=== PATIENT | male | born 1970 | race Caucasian/White ===

== ENCOUNTER 2017-11-25 07:52 | Inpatient (IN) | payer MEDICAID ==
[~2017-11-25] VITALS: Ht 170.2 cm; Wt 66.0 kg
[2017-11-25 09:29] LABS: BASOPHILS # (AUTO) 0.06 x10^3/uL (0-0.1); BASOPHILS % (AUTO) 1 % (0-1); EOSINOPHILS % (AUTO) 3 % (1-7); LYMPHOCYTES # (AUTO) 1.86 x10^3/uL (1-3.4); LYMPHOCYTES % (AUTO) 18 % (22-44); MD NO; MEAN CORPUSCULAR HEMOGLOBIN 31.4 pg (27.5-34.5); MEAN CORPUSCULAR HGB CONC 32.4 g/dL (33.2-36.2); MEAN CORPUSCULAR VOLUME 96.8 fL (81-97); MEAN PLATELET VOLUME 7.1 fL (7.4-10.4); MONOCYTES # (AUTO) 0.78 x10^3/uL (0.2-0.8); MONOCYTES % (AUTO) 7 % (2-9); NEUTROPHILS # (AUTO) 7.63 x10^3/uL (1.8-6.8); NEUTROPHILS % (AUTO) 72 % (42-75); PLATELET COUNT 289 x10^3/uL (130-400); RED BLOOD COUNT 3.63 x10^6/uL (4.38-5.82); RED CELL DISTRIBUTION WIDTH 17.3 % (9.4-14.8)
[2017-11-25] MEDS ORDERED: MORPHINE SULFATE 4 MG/ML, 1ML ONE (09:29)
[2017-11-25] MEDS ORDERED: MORPHINE SULFATE 4 MG/ML, 1ML IVPush PRN ×2 (09:30→15:00)
[2017-11-25] MEDS ORDERED: FAMOTIDINE 20 MG/2 ML IVP ONE (09:30)
[2017-11-25] MEDS ORDERED: SODIUM CHLORIDE FLUSH 10ML SYR IVF ONE (09:30)
[2017-11-25] MEDS ORDERED: FAMOTIDINE 20 MG/2 ML ONE (09:30)
[2017-11-25] MEDS ORDERED: ONDANSETRON 2MG/ML, 2ML IVPush ONE (09:30)
[2017-11-25] MEDS ORDERED: ONDANSETRON 2MG/ML, 2ML ONE (09:32)
[2017-11-25 09:39] LABS: ALANINE AMINOTRANSFERASE 72 U/L (12-78); ALBUMIN 3.9 g/dL (3.4-5.0); ANION GAP 7 mmol/L (5-15); CALCIUM 9.4 mg/dL (8.5-10.1); CHLORIDE 98 mmol/L (98-107); CREATININE 8.57 mg/dL (0.7-1.3)
[2017-11-25 09:40] LABS: BILIRUBIN, DIRECT < 0.1 mg/dL (0.1-0.2)
[2017-11-25 09:42] LABS: ALKALINE PHOSPHATASE 131 U/L (45-117); BILIRUBIN,INDIRECT 0.4 mg/dL (0.0-2.0); BILIRUBIN,TOTAL 0.5 mg/dL (0.2-1.0); TOTAL PROTEIN 9.9 g/dL (6.4-8.2)
[2017-11-25] MEDS ORDERED: hydrOXYzine 25 MG/ML IM ONE (13:00)
[2017-11-25] MEDS ORDERED: CEFOTETAN PMX 1GM/50ML 50 ML IV ONE (13:00)
[2017-11-25] MEDS ORDERED: CEFOTETAN PMX 1GM/50ML 50 ML ONE (13:07)
[2017-11-25] MEDS ORDERED: ASPI500T4 PO (13:24)
[2017-11-25] MEDS ORDERED: ALLO100T30 PO (13:25)
[2017-11-25] MEDS ORDERED: SUCR500T PO (13:26)
[2017-11-25] MEDS ORDERED: LISI-167 PO (13:27)
[2017-11-25] MEDS ORDERED: ATOR20TA PO (13:33)
[2017-11-25] MEDS ORDERED: LISI-170 PO (13:33)
[2017-11-25] MEDS ORDERED: COLC0.6T37 PO (13:34)
[2017-11-25] MEDS ORDERED: PHARMACY MAY ADJ FOR RENAL FX MC PRN (15:00)
[2017-11-25] MEDS ORDERED: HYDROcodone/APAP 5/325 TABLET PO PRN (15:00)
[2017-11-25] MEDS ORDERED: POLYETHYLENE GLYCOL 17 GM PACKET PO PRN (15:00)
[2017-11-25] MEDS ORDERED: ONDANSETRON ODT 4 MG PO PRN (15:00)
[2017-11-25] MEDS ORDERED: ONDANSETRON 2MG/ML, 2ML IVPush PRN (15:00)
[2017-11-25] MEDS ORDERED: DOCUSATE 100 MG CAPSULE PO PRN (15:00)
[2017-11-25] MEDS ORDERED: ACETAMINOPHEN 325 MG TABLET PO PRN (15:00)
[2017-11-25] MEDS ORDERED: AMPICILLIN/SULBACTAM 1,500 MG in SODIUM CHLORIDE 0.9% 50 ML IV SCH (15:00)
[2017-11-25] MEDS: AMPICILLIN/SULBACTAM 3 GM in SODIUM CHLORIDE 0.9% 100 ML IV SCH (16:13)
[2017-11-25] MEDS: SODIUM CHLORIDE 0.9% 1,000 ML IV SCH (16:13)
[2017-11-25 20:00] VITALS: BP 129/81
[2017-11-25] MEDS: ATORVASTATIN 20 MG TABLET PO SCH (21:29)
[2017-11-26 02:01] VITALS: BP 114/75
[2017-11-26 05:28] LABS: BASOPHILS # (AUTO) 0.07 x10^3/uL (0-0.1); BASOPHILS % (AUTO) 1 % (0-1); EOSINOPHILS # (AUTO) 0.33 x10^3/uL (0-0.4); EOSINOPHILS % (AUTO) 4 % (1-7); LYMPHOCYTES # (AUTO) 1.64 x10^3/uL (1-3.4); LYMPHOCYTES % (AUTO) 18 % (22-44); MD NO; MEAN CORPUSCULAR HEMOGLOBIN 32.3 pg (27.5-34.5); MEAN CORPUSCULAR VOLUME 97.8 fL (81-97); MEAN PLATELET VOLUME 7.1 fL (7.4-10.4); MONOCYTES # (AUTO) 0.68 x10^3/uL (0.2-0.8); MONOCYTES % (AUTO) 7 % (2-9); NEUTROPHILS # (AUTO) 6.61 x10^3/uL (1.8-6.8); NEUTROPHILS % (AUTO) 71 % (42-75); PLATELET COUNT 276 x10^3/uL (130-400); RED BLOOD COUNT 2.88 x10^6/uL (4.38-5.82); RED CELL DISTRIBUTION WIDTH 16.6 % (9.4-14.8)
[2017-11-26] MEDS: SODIUM CHLORIDE 0.9% 1,000 ML IV SCH (05:31)
[2017-11-26 05:32] LABS: CHLORIDE 104 mmol/L (98-107)
[2017-11-26 05:44] LABS: ALANINE AMINOTRANSFERASE 45 U/L (12-78); ALBUMIN 3.1 g/dL (3.4-5.0); ALKALINE PHOSPHATASE 89 U/L (45-117); ANION GAP 6 mmol/L (5-15); BILIRUBIN,TOTAL 0.6 mg/dL (0.2-1.0); CALCIUM 8.3 mg/dL (8.5-10.1); CREATININE 5.49 mg/dL (0.7-1.3); TOTAL PROTEIN 8.1 g/dL (6.4-8.2)
[2017-11-26 07:26] VITALS: BP 106/69
[2017-11-26] MEDS ORDERED: LISINOPRIL 20 MG TABLET PO SCH (09:00)
[2017-11-26] MEDS ORDERED: COLCHICINE 0.6 MG TABLET PO SCH (09:00)
[2017-11-26] MEDS ORDERED: DARBEPOETIN 60 MCG/ML SQ SCH (10:00)
[2017-11-26] MEDS: SEVELAMER CARBONATE 800MG TAB PO SCH ×2 (12:00→17:41)
[2017-11-26 12:19] LABS: CALCIUM 8.9 mg/dL (8.5-10.1)
[2017-11-26 13:31] VITALS: BP 126/80
[2017-11-26] MEDS ORDERED: SINCALIDE (KINEVAC) 5 MCG ONE (13:36)
[2017-11-26] MEDS: ALLOPURINOL 100 MG TABLET PO SCH (17:41)
[2017-11-26] MEDS: AMPICILLIN/SULBACTAM 3 GM in SODIUM CHLORIDE 0.9% 100 ML IV SCH (17:41)
[2017-11-26] MEDS: ATORVASTATIN 20 MG TABLET PO SCH (20:30)
[2017-11-26 22:30] VITALS: BP 127/80
[2017-11-27 03:41] VITALS: BP 133/86
[2017-11-27 05:08] LABS: BASOPHILS # (AUTO) 0.03 x10^3/uL (0-0.1); BASOPHILS % (AUTO) 0 % (0-1); EOSINOPHILS # (AUTO) 0.35 x10^3/uL (0-0.4); EOSINOPHILS % (AUTO) 4 % (1-7); LYMPHOCYTES # (AUTO) 1.88 x10^3/uL (1-3.4); LYMPHOCYTES % (AUTO) 23 % (22-44); MD NO; MEAN CORPUSCULAR HEMOGLOBIN 31.8 pg (27.5-34.5); MEAN CORPUSCULAR HGB CONC 32.5 g/dL (33.2-36.2); MEAN CORPUSCULAR VOLUME 97.6 fL (81-97); MEAN PLATELET VOLUME 7.4 fL (7.4-10.4); MONOCYTES # (AUTO) 0.73 x10^3/uL (0.2-0.8); MONOCYTES % (AUTO) 9 % (2-9); NEUTROPHILS # (AUTO) 5.14 x10^3/uL (1.8-6.8); NEUTROPHILS % (AUTO) 63 % (42-75); PLATELET COUNT 271 x10^3/uL (130-400); RED CELL DISTRIBUTION WIDTH 16.6 % (9.4-14.8)
[2017-11-27 05:23] LABS: CHLORIDE 108 mmol/L (98-107)
[2017-11-27 05:33] LABS: ANION GAP 7 mmol/L (5-15); CALCIUM 8.6 mg/dL (8.5-10.1)
[2017-11-27] MEDS: SEVELAMER CARBONATE 800MG TAB PO SCH ×2 (08:00→13:56)
[2017-11-27 08:02] VITALS: BP 130/80
[2017-11-27] MEDS ORDERED: LISINOPRIL 10 MG TABLET PO SCH (09:00)
[2017-11-27] MEDS: ALLOPURINOL 100 MG TABLET PO SCH (13:56)
[2017-11-27 14:30] VITALS: BP 115/76
[2017-11-27] MEDS ORDERED: SEVE800T8 PO (15:35)
== END 2017-11-27 16:31 | disposition home or self-care (01) | DRG 444 ==
LOC: ED 10:16 → EDIP 13:03 → 4WST 14:11
PROVIDERS: ADMIT Family Medicine; ATTEND Family Medicine
PROC: 5A1D70Z Performance of Urinary Filtration, Intermittent, Less than 6 Hours Per Day (ICD-10-PCS; principal; 2017-11-25)
PROC: 5A1D70Z Performance of Urinary Filtration, Intermittent, Less than 6 Hours Per Day (ICD-10-PCS; 2017-11-27)
DX: K82.8 Other specified diseases of gallbladder (principal); E43 Unspecified severe protein-calorie malnutrition; E11.22 Type 2 diabetes mellitus with diabetic chronic kidney disease; N18.6 End stage renal disease; I13.11 Hypertensive heart and chronic kidney disease without heart failure, with stage 5 chronic kidney disease, or end stage renal disease; K80.00 Calculus of gallbladder with acute cholecystitis without obstruction; D63.1 Anemia in chronic kidney disease; E78.5 Hyperlipidemia, unspecified; E87.5 Hyperkalemia; L29.9 Pruritus, unspecified; M10.9 Gout, unspecified; M41.9 Scoliosis, unspecified; N25.0 Renal osteodystrophy; Z85.6 Personal history of leukemia; Z68.22 Body mass index [BMI] 22.0-22.9, adult; Z87.891 Personal history of nicotine dependence; Z99.2 Dependence on renal dialysis
CPT/HCPCS: 36415; 72072; 76700; 78227; 80048; 80053; 82247; 82248; 82306; 82310; 82728; 83540; 83550; 83690; 83970; 84100; 84132; 85025; 86704; 86706; 87340; 96365; 96372; 96375; J0295; J0881; J2405; A9537; C9898; J2805; J3410; J7030; S0028; S0074

== ENCOUNTER 2017-12-01 21:17 | Inpatient (IN) | payer MEDICAID ==
[~2017-12-01] VITALS: Ht 170.2 cm; Wt 57.9 kg
[~2017-12-01 21:17] MED LIST: ALLO100T30 PO; ASPI500T4 PO; ATOR20TA PO; COLC0.6T37 PO; LISI-167 PO; LISI-170 PO; SEVE800T8 PO; SUCR500T PO
[2017-12-01 22:00] LABS: BASOPHILS # (AUTO) 0.06 x10^3/uL (0-0.1); BASOPHILS % (AUTO) 1 % (0-1); EOSINOPHILS # (AUTO) 0.27 x10^3/uL (0-0.4); EOSINOPHILS % (AUTO) 2 % (1-7); LYMPHOCYTES # (AUTO) 1.64 x10^3/uL (1-3.4); LYMPHOCYTES % (AUTO) 13 % (22-44); MD SCAN; MEAN CORPUSCULAR HEMOGLOBIN 31.1 pg (27.5-34.5); MEAN CORPUSCULAR HGB CONC 32.4 g/dL (33.2-36.2); MEAN CORPUSCULAR VOLUME 95.9 fL (81-97); MEAN PLATELET VOLUME 6.9 fL (7.4-10.4); MONOCYTES # (AUTO) 0.81 x10^3/uL (0.2-0.8); MONOCYTES % (AUTO) 6 % (2-9); NEUTROPHILS # (AUTO) 10.12 x10^3/uL (1.8-6.8); NEUTROPHILS % (AUTO) 78 % (42-75); PLATELET COUNT 336 x10^3/uL (130-400); RED BLOOD COUNT 3.45 x10^6/uL (4.38-5.82); RED CELL DISTRIBUTION WIDTH 16.4 % (9.4-14.8)
[2017-12-01] MEDS ORDERED: SODIUM CHLORIDE FLUSH 10ML SYR IVF ONE (22:00)
[2017-12-01 22:09] LABS: PROTHROMBIN TIME 10.3 Seconds (9.6-11.5)
[2017-12-01 22:12] LABS: ALANINE AMINOTRANSFERASE 69 U/L (12-78); ALBUMIN 3.7 g/dL (3.4-5.0); ANION GAP 12 mmol/L (5-15); CALCIUM 9.1 mg/dL (8.5-10.1); CHLORIDE 106 mmol/L (98-107)
[2017-12-01 22:14] LABS: ALKALINE PHOSPHATASE 160 U/L (45-117); BILIRUBIN,TOTAL 0.9 mg/dL (0.2-1.0); TOTAL PROTEIN 9.5 g/dL (6.4-8.2)
[2017-12-01] MEDS ORDERED: LEVOFLOXACIN/PMX 750MG/150ML 150 ML IV ONE (23:00)
[2017-12-01] MEDS ORDERED: LEVOFLOXACIN/PMX 750MG/150ML 150 ML IV SCH (23:30)
[2017-12-01] MEDS ORDERED: LEVOFLOXACIN/PMX 750MG/150ML 150 ML ONE (23:51)
[2017-12-02] MEDS ORDERED: ONDANSETRON ODT 4 MG PO PRN
[2017-12-02] MEDS ORDERED: GUAIFENESIN/DM 200-20MG, 10ML UDC PO PRN
[2017-12-02] MEDS ORDERED: ACETAMINOPHEN 325 MG TABLET PO PRN
[2017-12-02] MEDS ORDERED: POLYETHYLENE GLYCOL 17 GM PACKET PO PRN
[2017-12-02] MEDS ORDERED: hydrALAzine 20 MG/ML, 1ML IVPush PRN
[2017-12-02] MEDS ORDERED: BISACODYL 10 MG SUPP PR PRN
[2017-12-02 00:09] LABS: HEMOGLOBIN A1C 4.2 % (4.2-6.3)
[2017-12-02 00:32] LABS: MICROSCOPIC INDICATED
[2017-12-02 00:44] LABS: CULTURE INDICATED? NO
[2017-12-02] MEDS: SEVELAMER CARBONATE 800MG TAB PO SCH ×4 (01:05→17:00)
[2017-12-02] MEDS: ATORVASTATIN 20 MG TABLET PO SCH ×2 (01:06→20:15)
[2017-12-02] MEDS ORDERED: HEPARIN 5,000 UNITS/ML, 1ML ONE ×2 (01:10→09:48)
[2017-12-02] MEDS: HEPARIN 5,000 UNITS/ML, 1ML SQ SCH ×3 (01:15→20:15)
[2017-12-02 06:12] LABS: BASOPHILS # (AUTO) 0.05 x10^3/uL (0-0.1); BASOPHILS % (AUTO) 0 % (0-1); EOSINOPHILS # (AUTO) 0.27 x10^3/uL (0-0.4); EOSINOPHILS % (AUTO) 2 % (1-7); LYMPHOCYTES # (AUTO) 1.52 x10^3/uL (1-3.4); LYMPHOCYTES % (AUTO) 13 % (22-44); MD NO; MEAN CORPUSCULAR HGB CONC 33.5 g/dL (33.2-36.2); MEAN CORPUSCULAR VOLUME 95.5 fL (81-97); MEAN PLATELET VOLUME 6.9 fL (7.4-10.4); MONOCYTES # (AUTO) 0.71 x10^3/uL (0.2-0.8); MONOCYTES % (AUTO) 6 % (2-9); NEUTROPHILS # (AUTO) 9.22 x10^3/uL (1.8-6.8); NEUTROPHILS % (AUTO) 78 % (42-75); PLATELET COUNT 284 x10^3/uL (130-400); RED BLOOD COUNT 2.96 x10^6/uL (4.38-5.82); RED CELL DISTRIBUTION WIDTH 16.5 % (9.4-14.8)
[2017-12-02 06:23] LABS: ALBUMIN 3.1 g/dL (3.4-5.0); ANION GAP 13 mmol/L (5-15); CALCIUM 8.5 mg/dL (8.5-10.1); CHLORIDE 104 mmol/L (98-107)
[2017-12-02 06:29] LABS: ALANINE AMINOTRANSFERASE 59 U/L (12-78); ALKALINE PHOSPHATASE 138 U/L (45-117); TOTAL PROTEIN 8.3 g/dL (6.4-8.2)
[2017-12-02] MEDS ORDERED: ARANESP 100 MCG/ML **ESRD SQ SCH (08:30)
[2017-12-02] MEDS ORDERED: ONDANSETRON ODT 4 MG ONE (09:09)
[2017-12-02] MEDS: ALLOPURINOL 100 MG TABLET PO SCH (09:57)
[2017-12-02] MEDS: LISINOPRIL 20 MG TABLET PO SCH (09:59)
[2017-12-02] MEDS: SENNA/DOCUSATE TABLET PO SCH (10:02)
[2017-12-02 20:00] VITALS: BP 148/90
[2017-12-03 02:00] VITALS: BP 110/70
[2017-12-03] MEDS: HEPARIN 5,000 UNITS/ML, 1ML SQ SCH ×3 (04:16→21:47)
[2017-12-03 05:32] LABS: BASOPHILS # (AUTO) 0.07 x10^3/uL (0-0.1); BASOPHILS % (AUTO) 1 % (0-1); EOSINOPHILS # (AUTO) 0.22 x10^3/uL (0-0.4); EOSINOPHILS % (AUTO) 3 % (1-7); LYMPHOCYTES # (AUTO) 1.86 x10^3/uL (1-3.4); LYMPHOCYTES % (AUTO) 23 % (22-44); MD NO; MEAN CORPUSCULAR HGB CONC 32.8 g/dL (33.2-36.2); MEAN CORPUSCULAR VOLUME 94.5 fL (81-97); MEAN PLATELET VOLUME 7.1 fL (7.4-10.4); MONOCYTES # (AUTO) 0.81 x10^3/uL (0.2-0.8); MONOCYTES % (AUTO) 10 % (2-9); NEUTROPHILS # (AUTO) 5.02 x10^3/uL (1.8-6.8); NEUTROPHILS % (AUTO) 63 % (42-75); PLATELET COUNT 367 x10^3/uL (130-400); RED BLOOD COUNT 3.36 x10^6/uL (4.38-5.82); RED CELL DISTRIBUTION WIDTH 15.6 % (9.4-14.8)
[2017-12-03 05:38] LABS: ANION GAP 9 mmol/L (5-15); CALCIUM 8.8 mg/dL (8.5-10.1); CHLORIDE 100 mmol/L (98-107); CREATININE 8.98 mg/dL (0.7-1.3)
[2017-12-03 07:44] VITALS: BP 114/74
[2017-12-03] MEDS: LISINOPRIL 20 MG TABLET PO SCH (10:59)
[2017-12-03] MEDS: SENNA/DOCUSATE TABLET PO SCH (10:59)
[2017-12-03] MEDS: SEVELAMER CARBONATE 800MG TAB PO SCH ×3 (10:59→17:39)
[2017-12-03] MEDS: ALLOPURINOL 100 MG TABLET PO SCH (11:00)
[2017-12-03 13:59] VITALS: BP 118/79
[2017-12-03 18:59] VITALS: BP 105/72
[2017-12-03] MEDS: ATORVASTATIN 20 MG TABLET PO SCH (21:47)
[2017-12-04] MEDS ORDERED: LEVOFLOXACIN/PMX 500MG/100ML 100 ML IV SCH
[2017-12-04 00:17] VITALS: BP 114/72
[2017-12-04] MEDS: HEPARIN 5,000 UNITS/ML, 1ML SQ SCH ×2 (06:01→17:06)
[2017-12-04] MEDS: ALLOPURINOL 100 MG TABLET PO SCH (08:02)
[2017-12-04] MEDS: LISINOPRIL 20 MG TABLET PO SCH (08:02)
[2017-12-04] MEDS: SEVELAMER CARBONATE 800MG TAB PO SCH ×2 (08:02→12:24)
[2017-12-04] MEDS: SENNA/DOCUSATE TABLET PO SCH (08:03)
[2017-12-04 08:04] VITALS: BP 126/82
[2017-12-04 12:48] VITALS: BP 131/82
[2017-12-04] MEDS ORDERED: ACET325T14 PO (14:28)
[2017-12-04] MEDS ORDERED: LEVO500T47 PO (14:28)
[2017-12-04] MEDS ORDERED: GUAI200T3 PO (14:28)
== END 2017-12-04 17:28 | disposition home or self-care (01) | DRG 871 ==
LOC: ED 21:39 → EDIP 23:30 → 4WST 12-02 14:29
PROVIDERS: ADMIT Hospitalist; ATTEND Hospitalist
PROC: 5A1D70Z Performance of Urinary Filtration, Intermittent, Less than 6 Hours Per Day (ICD-10-PCS; principal; 2017-12-02)
PROC: 5A1D70Z Performance of Urinary Filtration, Intermittent, Less than 6 Hours Per Day (ICD-10-PCS; 2017-12-04)
DX: A41.9 Sepsis, unspecified organism (principal); E43 Unspecified severe protein-calorie malnutrition; I13.2 Hypertensive heart and chronic kidney disease with heart failure and with stage 5 chronic kidney disease, or end stage renal disease; E11.21 Type 2 diabetes mellitus with diabetic nephropathy; J18.9 Pneumonia, unspecified organism; I50.9 Heart failure, unspecified; N18.6 End stage renal disease; D63.1 Anemia in chronic kidney disease; E11.22 Type 2 diabetes mellitus with diabetic chronic kidney disease; E78.5 Hyperlipidemia, unspecified; E87.5 Hyperkalemia; F17.210 Nicotine dependence, cigarettes, uncomplicated; G89.29 Other chronic pain; R62.7 Adult failure to thrive; N25.0 Renal osteodystrophy; M10.9 Gout, unspecified; M41.9 Scoliosis, unspecified; Z99.2 Dependence on renal dialysis; Z91.19 Patient's noncompliance with other medical treatment and regimen; Z90.49 Acquired absence of other specified parts of digestive tract; Z68.20 Body mass index [BMI] 20.0-20.9, adult
CPT/HCPCS: 36415; 71046; 80048; 80053; 81001; 82962; 83036; 83605; 83690; 84145; 85025; 85610; 85730; 87040; 87070; 87205; 93005; 99285; J0882; J1644; J1956; Q0162

== ENCOUNTER 2018-01-04 08:12 | Emergency (ER) | payer MEDICAID ==
[~2018-01-04] VITALS: Ht 170.2 cm; Wt 57.0 kg
[~2018-01-04 08:12] MED LIST changes: +ACET325T14 PO; +ACET500T71 PO; +AMLO10TA2 PO; +ASPRIN PO; +FERR325T16 PO; +GUAI200T3 PO; +LEVO500T47 PO
[2018-01-04] MEDS ORDERED: MORPHINE SULFATE 4 MG/ML, 1ML IVPush PRN (09:30)
[2018-01-04] MEDS ORDERED: ONDANSETRON ODT 4 MG PO ONE (09:30)
[2018-01-04] MEDS ORDERED: SODIUM CHLORIDE FLUSH 10ML SYR IVF ONE (09:30)
[2018-01-04 09:46] LABS: BASOPHILS # (AUTO) 0.03 x10^3/uL (0-0.1); BASOPHILS % (AUTO) 0 % (0-1); EOSINOPHILS # (AUTO) 0.17 x10^3/uL (0-0.4); EOSINOPHILS % (AUTO) 2 % (1-7); LYMPHOCYTES # (AUTO) 1.28 x10^3/uL (1-3.4); LYMPHOCYTES % (AUTO) 12 % (22-44); MD NO; MEAN CORPUSCULAR HEMOGLOBIN 30.7 pg (27.5-34.5); MEAN CORPUSCULAR HGB CONC 32.8 g/dL (33.2-36.2); MEAN CORPUSCULAR VOLUME 93.4 fL (81-97); MEAN PLATELET VOLUME 7.6 fL (7.4-10.4); MONOCYTES # (AUTO) 0.57 x10^3/uL (0.2-0.8); MONOCYTES % (AUTO) 5 % (2-9); NEUTROPHILS # (AUTO) 9.03 x10^3/uL (1.8-6.8); NEUTROPHILS % (AUTO) 82 % (42-75); PLATELET COUNT 260 x10^3/uL (130-400); RED BLOOD COUNT 4.21 x10^6/uL (4.38-5.82); RED CELL DISTRIBUTION WIDTH 15.3 % (9.4-14.8)
[2018-01-04 09:55] LABS: ALANINE AMINOTRANSFERASE 35 U/L (12-78); ALBUMIN 3.9 g/dL (3.4-5.0); ANION GAP 11 mmol/L (5-15); CALCIUM 10.2 mg/dL (8.5-10.1); CHLORIDE 101 mmol/L (98-107)
[2018-01-04 09:58] LABS: ALKALINE PHOSPHATASE 97 U/L (45-117); BILIRUBIN,TOTAL 0.5 mg/dL (0.2-1.0); TOTAL PROTEIN 9.7 g/dL (6.4-8.2)
[2018-01-04] MEDS ORDERED: ONDANSETRON ODT 4 MG ONE (10:00)
[2018-01-04] MEDS ORDERED: morphine SULFATE 10 MG/ML, 1ML ONE (10:01)
[2018-01-04 11:00] VITALS: BP 136/91
== END 2018-01-04 11:09 | disposition home or self-care (01) ==
LOC: ED 09:01
DX: N18.6 End stage renal disease (principal); G44.219 Episodic tension-type headache, not intractable; E11.22 Type 2 diabetes mellitus with diabetic chronic kidney disease; I12.0 Hypertensive chronic kidney disease with stage 5 chronic kidney disease or end stage renal disease; N17.9 Acute kidney failure, unspecified; Z99.2 Dependence on renal dialysis; Z87.891 Personal history of nicotine dependence
CPT/HCPCS: 36415; 70450; 71046; 80053; 84550; 85025; 93005; 96374; 99285; Q0162

== ENCOUNTER 2018-01-18 21:43 | Emergency (ER) | payer MEDICAID ==
[~2018-01-18] VITALS: Ht 170.2 cm; Wt 56.3 kg
[2018-01-18 23:55] LABS: ALANINE AMINOTRANSFERASE 31 U/L (12-78); ALBUMIN 3.7 g/dL (3.4-5.0); ANION GAP 5 mmol/L (5-15); CALCIUM 9.9 mg/dL (8.5-10.1); CHLORIDE 98 mmol/L (98-107)
[2018-01-18 23:57] LABS: ALKALINE PHOSPHATASE 123 U/L (45-117); BILIRUBIN,TOTAL 0.6 mg/dL (0.2-1.0); TOTAL PROTEIN 9.7 g/dL (6.4-8.2)
[2018-01-19 00:01] VITALS: BP 142/85
== END 2018-01-19 00:41 | disposition home or self-care (01) ==
LOC: ED 23:59
DX: L29.9 Pruritus, unspecified (principal); M10.9 Gout, unspecified; I10 Essential (primary) hypertension; E11.9 Type 2 diabetes mellitus without complications
CPT/HCPCS: 36415; 80053; 99283; Q0177

== ENCOUNTER 2018-01-29 18:31 | Inpatient (IN) | payer MEDICAID ==
[~2018-01-29] VITALS: Ht 170.2 cm; Wt 56.9 kg
[2018-01-29] MEDS ORDERED: LORazepam 1MG TABLET PO ONE (20:30)
[2018-01-29 20:33] LABS: BASOPHILS # (AUTO) 0.04 x10^3/uL (0-0.1); BASOPHILS % (AUTO) 0 % (0-1); EOSINOPHILS # (AUTO) 0.17 x10^3/uL (0-0.4); EOSINOPHILS % (AUTO) 1 % (1-7); LYMPHOCYTES # (AUTO) 1.66 x10^3/uL (1-3.4); LYMPHOCYTES % (AUTO) 11 % (22-44); MD NO; MEAN CORPUSCULAR HEMOGLOBIN 30.5 pg (27.5-34.5); MEAN CORPUSCULAR HGB CONC 33.4 g/dL (33.2-36.2); MEAN CORPUSCULAR VOLUME 91.3 fL (81-97); MEAN PLATELET VOLUME 7.4 fL (7.4-10.4); MONOCYTES % (AUTO) 6 % (2-9); NEUTROPHILS # (AUTO) 11.74 x10^3/uL (1.8-6.8); NEUTROPHILS % (AUTO) 81 % (42-75); PLATELET COUNT 276 x10^3/uL (130-400); RED BLOOD COUNT 3.73 x10^6/uL (4.38-5.82); RED CELL DISTRIBUTION WIDTH 14.9 % (9.4-14.8)
[2018-01-29 20:39] LABS: ANION GAP 10 mmol/L (5-15); CALCIUM 9.9 mg/dL (8.5-10.1); CHLORIDE 96 mmol/L (98-107)
[2018-01-29] MEDS ORDERED: SODIUM CHLORIDE FLUSH 10ML SYR IVF ONE (21:00)
[2018-01-29] MEDS ORDERED: CEFTRIAXONE PMX 1GM/50ML 50 ML IVPB ONE (21:00)
[2018-01-29] MEDS ORDERED: CEFTRIAXONE PMX 1GM/50ML 50 ML ONE (21:01)
[2018-01-29] MEDS ORDERED: LORazepam 1MG TABLET ONE (21:01)
[2018-01-29] MEDS ORDERED: PHARMACOKINETIC CONSULTATION MC ONE (22:00)
[2018-01-29] MEDS ORDERED: VANCOMYCIN PER PHARMACY IV ONE (22:00)
[2018-01-29] MEDS ORDERED: VANCOMYCIN PMX 1GM/200ML 200 ML IV ONE (22:00)
[2018-01-29] MEDS ORDERED: ENALAPRILAT 1.25 MG/ML, 2ML IV ONE (22:00)
[2018-01-29] MEDS ORDERED: SODIUM CHLORIDE 0.9% 1,000 ML IV SCH (22:32)
[2018-01-29] MEDS ORDERED: hydrOXYzine 50 MG/ML IM ONE (23:00)
[2018-01-29] MEDS ORDERED: hydrALAzine 20 MG/ML, 1ML IVPush PRN (23:00)
[2018-01-29] MEDS ORDERED: ONDANSETRON 2MG/ML, 2ML IVPush PRN (23:00)
[2018-01-29] MEDS ORDERED: POLYETHYLENE GLYCOL 17 GM PACKET PO PRN (23:00)
[2018-01-29 23:02] LABS: MICROSCOPIC AUTO
[2018-01-29 23:07] LABS: CULTURE INDICATED? NO
[2018-01-29 23:23] VITALS: BP 144/89
[2018-01-29] MEDS: HEPARIN 5,000 UNITS/ML, 1ML SQ SCH (23:45)
[2018-01-29] MEDS ORDERED: hydrOXYzine 25 MG/ML IM ONE (23:45)
[2018-01-29] MEDS: ATORVASTATIN 20 MG TABLET PO SCH (23:49)
[2018-01-30] VITALS: BP 144/89
[2018-01-30 00:15] VITALS: BP 129/79
[2018-01-30 05:20] LABS: CHLORIDE 95 mmol/L (98-107)
[2018-01-30 05:25] LABS: ANION GAP 9 mmol/L (5-15); CALCIUM 9.2 mg/dL (8.5-10.1)
[2018-01-30 06:35] VITALS: BP 120/72
[2018-01-30] MEDS: FERROUS GLUCONATE 324 MG TABLET PO SCH ×3 (08:00→17:11)
[2018-01-30] MEDS: ALLOPURINOL 100 MG TABLET PO SCH (14:05)
[2018-01-30] MEDS: HEPARIN 5,000 UNITS/ML, 1ML SQ SCH ×2 (14:05→23:19)
[2018-01-30] MEDS: AMLODIPINE 5 MG TABLET PO SCH (14:05)
[2018-01-30 14:20] VITALS: BP 113/75
[2018-01-30 19:41] VITALS: BP 110/75
[2018-01-30] MEDS: ATORVASTATIN 20 MG TABLET PO SCH (20:57)
[2018-01-31] MEDS: ACETAMINOPHEN 325 MG TABLET PO PRN ×2 (00:23→20:55)
[2018-01-31 03:40] VITALS: BP 115/62
[2018-01-31 05:39] LABS: BASOPHILS # (AUTO) 0.04 x10^3/uL (0-0.1); BASOPHILS % (AUTO) 0 % (0-1); EOSINOPHILS # (AUTO) 0.27 x10^3/uL (0-0.4); EOSINOPHILS % (AUTO) 3 % (1-7); LYMPHOCYTES # (AUTO) 2.31 x10^3/uL (1-3.4); LYMPHOCYTES % (AUTO) 23 % (22-44); MD NO; MEAN CORPUSCULAR HEMOGLOBIN 30.3 pg (27.5-34.5); MEAN CORPUSCULAR HGB CONC 32.8 g/dL (33.2-36.2); MEAN CORPUSCULAR VOLUME 92.3 fL (81-97); MEAN PLATELET VOLUME 7.2 fL (7.4-10.4); MONOCYTES % (AUTO) 8 % (2-9); NEUTROPHILS # (AUTO) 6.65 x10^3/uL (1.8-6.8); NEUTROPHILS % (AUTO) 66 % (42-75); PLATELET COUNT 268 x10^3/uL (130-400); RED CELL DISTRIBUTION WIDTH 14.9 % (9.4-14.8)
[2018-01-31 05:45] LABS: ANION GAP 11 mmol/L (5-15); CALCIUM 9.5 mg/dL (8.5-10.1); CHLORIDE 97 mmol/L (98-107); CREATININE 8.08 mg/dL (0.7-1.3)
[2018-01-31 06:40] VITALS: BP 134/80
[2018-01-31] MEDS: FERROUS GLUCONATE 324 MG TABLET PO SCH ×3 (10:41→17:10)
[2018-01-31] MEDS: ALLOPURINOL 100 MG TABLET PO SCH (10:41)
[2018-01-31] MEDS: HEPARIN 5,000 UNITS/ML, 1ML SQ SCH ×2 (10:41→20:55)
[2018-01-31] MEDS: AMLODIPINE 5 MG TABLET PO SCH (10:41)
[2018-01-31 12:40] VITALS: BP 113/62
[2018-01-31 19:37] VITALS: BP 117/71
[2018-01-31] MEDS: ATORVASTATIN 20 MG TABLET PO SCH (20:55)
[2018-02-01 02:09] VITALS: BP 119/73
[2018-02-01] MEDS: ACETAMINOPHEN 325 MG TABLET PO PRN ×2 (05:25→20:57)
[2018-02-01 05:30] LABS: BASOPHILS # (AUTO) 0.08 x10^3/uL (0-0.1); BASOPHILS % (AUTO) 1 % (0-1); EOSINOPHILS # (AUTO) 0.29 x10^3/uL (0-0.4); EOSINOPHILS % (AUTO) 3 % (1-7); LYMPHOCYTES # (AUTO) 2.65 x10^3/uL (1-3.4); LYMPHOCYTES % (AUTO) 24 % (22-44); MD NO; MEAN CORPUSCULAR HEMOGLOBIN 30.4 pg (27.5-34.5); MEAN CORPUSCULAR VOLUME 92.1 fL (81-97); MEAN PLATELET VOLUME 7.4 fL (7.4-10.4); MONOCYTES # (AUTO) 0.88 x10^3/uL (0.2-0.8); MONOCYTES % (AUTO) 8 % (2-9); NEUTROPHILS # (AUTO) 7.21 x10^3/uL (1.8-6.8); NEUTROPHILS % (AUTO) 65 % (42-75); PLATELET COUNT 290 x10^3/uL (130-400); RED CELL DISTRIBUTION WIDTH 14.9 % (9.4-14.8)
[2018-02-01] MEDS: HEPARIN 5,000 UNITS/ML, 1ML SQ SCH ×2 (09:24→20:57)
[2018-02-01] MEDS: FERROUS GLUCONATE 324 MG TABLET PO SCH ×3 (09:25→19:20)
[2018-02-01] MEDS: ALLOPURINOL 100 MG TABLET PO SCH (09:25)
[2018-02-01 10:22] VITALS: BP 116/77
[2018-02-01] MEDS: AMLODIPINE 5 MG TABLET PO SCH (10:32)
[2018-02-01 20:46] VITALS: BP 110/73
[2018-02-01] MEDS: ATORVASTATIN 20 MG TABLET PO SCH (20:57)
[2018-02-02 02:20] VITALS: BP 93/58
[2018-02-02] MEDS: AMLODIPINE 5 MG TABLET PO SCH (09:00)
[2018-02-02 09:15] VITALS: BP 93/59
[2018-02-02] MEDS: ALLOPURINOL 100 MG TABLET PO SCH (09:46)
[2018-02-02] MEDS: HEPARIN 5,000 UNITS/ML, 1ML SQ SCH ×2 (09:46→20:48)
[2018-02-02] MEDS: FERROUS GLUCONATE 324 MG TABLET PO SCH ×3 (09:46→20:48)
[2018-02-02 15:44] VITALS: BP 96/60
[2018-02-02 19:47] VITALS: BP 100/63
[2018-02-02] MEDS: ATORVASTATIN 20 MG TABLET PO SCH (20:47)
[2018-02-03 02:34] VITALS: BP 103/65
[2018-02-03 06:39] VITALS: BP 102/65
[2018-02-03] MEDS: FERROUS GLUCONATE 324 MG TABLET PO SCH ×2 (08:00→12:00)
[2018-02-03] MEDS: AMLODIPINE 5 MG TABLET PO SCH (08:43)
[2018-02-03] MEDS: HEPARIN 5,000 UNITS/ML, 1ML SQ SCH (08:43)
[2018-02-03] MEDS: ALLOPURINOL 100 MG TABLET PO SCH (09:00)
== END 2018-02-03 13:15 | disposition home or self-care (01) | DRG 640 ==
LOC: ED 21:23 → EDIP 21:47 → 4WST 23:21 → DCLOUNGE 02-03 13:09
PROVIDERS: ADMIT Hospitalist; ATTEND Hospitalist
PROC: 5A1D70Z Performance of Urinary Filtration, Intermittent, Less than 6 Hours Per Day (ICD-10-PCS; principal; 2018-01-30)
PROC: 5A1D70Z Performance of Urinary Filtration, Intermittent, Less than 6 Hours Per Day (ICD-10-PCS; 2018-02-01)
PROC: 5A1D70Z Performance of Urinary Filtration, Intermittent, Less than 6 Hours Per Day (ICD-10-PCS; 2018-02-03)
DX: E87.5 Hyperkalemia (principal); N18.6 End stage renal disease; I12.0 Hypertensive chronic kidney disease with stage 5 chronic kidney disease or end stage renal disease; D63.1 Anemia in chronic kidney disease; D72.829 Elevated white blood cell count, unspecified; E11.22 Type 2 diabetes mellitus with diabetic chronic kidney disease; E78.5 Hyperlipidemia, unspecified; E87.1 Hypo-osmolality and hyponatremia; E87.3 Alkalosis; F15.90 Other stimulant use, unspecified, uncomplicated; F29 Unspecified psychosis not due to a substance or known physiological condition; F45.9 Somatoform disorder, unspecified; M10.9 Gout, unspecified; N25.0 Renal osteodystrophy; Z53.20 Procedure and treatment not carried out because of patient's decision for unspecified reasons; Z85.6 Personal history of leukemia; Z91.14 Patient's other noncompliance with medication regimen; Z91.15 Patient's noncompliance with renal dialysis; Z91.19 Patient's noncompliance with other medical treatment and regimen; Z99.2 Dependence on renal dialysis; R53.81 Other malaise
CPT/HCPCS: 36415; 71045; 80048; 81001; 82040; 82962; 83605; 83735; 84100; 85025; 87040; 93005; 96365; J0696; J1644; J3370; 92523-GN; J3410; J7030

== ENCOUNTER 2018-09-24 06:25 | Emergency (ER) | payer MEDICAID ==
[~2018-09-24] VITALS: Ht 170.2 cm; Wt 57.2 kg
[~2018-09-24 06:25] MED LIST changes: -AMLO10TA2 PO; +AMLO10TA8 PO
[2018-09-24 06:27] VITALS: BP 168/99
[2018-09-24] MEDS ORDERED: ACET325T14 PO (06:36)
[2018-09-24] MEDS ORDERED: OMEP-110 PO (06:36)
[2018-09-24] MEDS ORDERED: ARIP5TAB13 PO (06:36)
[2018-09-24] MEDS ORDERED: SODIUM CHLORIDE FLUSH 10ML SYR IVF ONE (07:00)
--- NOTE | 2018-09-24 07:13 | NUR ---
patient safe in bed, xray at bedside, blanket provided.
[2018-09-24 08:10] LABS: MEAN CORPUSCULAR HEMOGLOBIN 29.7 pg (27.5-34.5); MEAN CORPUSCULAR HGB CONC 31.2 g/dL (33.2-36.2); MEAN CORPUSCULAR VOLUME 95.3 fL (81-97); MEAN PLATELET VOLUME 7.1 fL (7.4-10.4); PLATELET COUNT 484 x10^3/uL (130-400); RED BLOOD COUNT 3.46 x10^6/uL (4.38-5.82); RED CELL DISTRIBUTION WIDTH 17.6 % (9.4-14.8)
[2018-09-24 08:11] LABS: ALBUMIN 2.9 g/dL (3.4-5.0); ANION GAP 10 mmol/L (5-15); CALCIUM 9.6 mg/dL (8.5-10.1); CHLORIDE 104 mmol/L (98-107)
[2018-09-24 08:14] LABS: ALANINE AMINOTRANSFERASE 15 U/L (12-78); ALKALINE PHOSPHATASE 143 U/L (45-117); BILIRUBIN,TOTAL 0.5 mg/dL (0.2-1.0); TOTAL PROTEIN 8.7 g/dL (6.4-8.2); TROPONIN I < 0.015 ng/mL (0.000-0.045)
[2018-09-24 08:31] LABS: BASOPHILS # (AUTO) 0.05 x10^3/uL (0-0.1); BASOPHILS % (AUTO) 0 % (0-1); EOSINOPHILS # (AUTO) 0.23 x10^3/uL (0-0.4); EOSINOPHILS % (AUTO) 2 % (1-7); LYMPHOCYTES # (AUTO) 1.63 x10^3/uL (1-3.4); LYMPHOCYTES % (AUTO) 13 % (22-44); MD SCAN; MONOCYTES # (AUTO) 0.71 x10^3/uL (0.2-0.8); MONOCYTES % (AUTO) 6 % (2-9); NEUTROPHILS # (AUTO) 9.53 x10^3/uL (1.8-6.8); NEUTROPHILS % (AUTO) 78 % (42-75)
--- NOTE | 2018-09-24 08:32 | NUR ---
patient safe in bed, NADN, flat affect, NSR on monitor, vss on room air, call light in reach, bedrails up, no additional needs now.
--- NOTE | 2018-09-24 09:45 | NUR ---
patient appears to have eloped, VSS on last check, MD updated.
== END 2018-09-24 09:47 | disposition left against medical advice (07) ==
LOC: ED 08:55
DX: R06.00 Dyspnea, unspecified (principal); E03.9 Hypothyroidism, unspecified; E87.5 Hyperkalemia; D53.9 Nutritional anemia, unspecified; E11.22 Type 2 diabetes mellitus with diabetic chronic kidney disease; I12.0 Hypertensive chronic kidney disease with stage 5 chronic kidney disease or end stage renal disease; N18.6 End stage renal disease; Z99.2 Dependence on renal dialysis
CPT/HCPCS: 36415; 71045; 80053; 83735; 83880; 84100; 84484; 85025; 93005; 99284

== ENCOUNTER 2019-10-25 18:38 | Emergency (ER) | payer MEDICAID ==
[~2019-10-25] VITALS: Ht 170.2 cm; Wt 60.5 kg
[~2019-10-25 18:38] MED LIST changes: +ACET500T64 PO; -ACET500T71 PO; +ARIP5TAB13 PO; -GUAI200T3 PO; +GUAI200T37 PO; +OMEP-110 PO
--- NOTE | 2019-10-25 19:39 | NUR ---
pt called to room from lobby
--- NOTE | 2019-10-25 19:55 | NUR ---
THIS IS A 49 YO M W/ C/O 5/10 PAIN IN LEGS, KNEES, ARMS AND BACK X3 WEEKS. PT ALSO REPORTS SORE THROAT. HX: AKF, DIALYSIS M/W/FRI. RESP EVEN AND UNLABORED. NADN. VS STABLE. PT RESTING ON GURTag'By W/ CALL LIGHT IN REACH. AWAITING ED EVAL.
[2019-10-25] MEDS ORDERED: DEXAMETHASONE 4 MG TABLET ONE (20:18)
[2019-10-25] MEDS ORDERED: HYDROcodone/APAP 5/325 TABLET ONE (20:18)
--- NOTE | 2019-10-25 20:21 | NUR ---
PT MEDICATED PER EMAR.
[2019-10-25] MEDS ORDERED: DEXAMETHASONE 4 MG TABLET PO ONE (20:30)
[2019-10-25] MEDS ORDERED: HYDROcodone/APAP 5/325 TABLET PO ONE (20:30)
[2019-10-25 20:56] LABS: BASOPHILS # (AUTO) 0.01 x10^3/uL (0-0.1); BASOPHILS % (AUTO) 0 % (0-1); EOSINOPHILS # (AUTO) 0.15 x10^3/uL (0-0.4); EOSINOPHILS % (AUTO) 1 % (1-7); LYMPHOCYTES # (AUTO) 0.79 x10^3/uL (1-3.4); LYMPHOCYTES % (AUTO) 6 % (22-44); MD NO; MEAN CORPUSCULAR HEMOGLOBIN 29.3 pg (27.5-34.5); MEAN CORPUSCULAR HGB CONC 32.3 g/dL (33.2-36.2); MEAN CORPUSCULAR VOLUME 90.8 fL (81-97); MEAN PLATELET VOLUME 7.4 fL (7.4-10.4); MONOCYTES # (AUTO) 0.04 x10^3/uL (0.2-0.8); MONOCYTES % (AUTO) 0 % (2-9); NEUTROPHILS # (AUTO) 13.15 x10^3/uL (1.8-6.8); NEUTROPHILS % (AUTO) 93 % (42-75); PLATELET COUNT 239 x10^3/uL (130-400); RED BLOOD COUNT 3.29 x10^6/uL (4.38-5.82); RED CELL DISTRIBUTION WIDTH 17.7 % (9.4-14.8)
[2019-10-25 21:02] VITALS: BP 154/88
[2019-10-25 21:02] LABS: ANION GAP 13 mmol/L (5-15); CALCIUM 8.7 mg/dL (8.5-10.1); CHLORIDE 94 mmol/L (98-107)
[2019-10-25 21:09] LABS: RAPID INFLUENZA A Negative (Negative); RAPID INFLUENZA B Negative (Negative)
--- NOTE | 2019-10-25 21:11 | NUR ---
ALL TESTS RESULTED. PT IS UP FOR RECHECK AT THIS TIME.
== END 2019-10-25 22:08 | disposition home or self-care (01) ==
LOC: ED 21:46
DX: J02.8 Acute pharyngitis due to other specified organisms (principal); B34.9 Viral infection, unspecified; I10 Essential (primary) hypertension; E11.9 Type 2 diabetes mellitus without complications
CPT/HCPCS: 36415; 80048; 82040; 85025; 87081; 87400; 87880; 99283

== ENCOUNTER 2020-01-17 16:11 | Inpatient (IN) | payer MEDICAID ==
[~2020-01-17] VITALS: Ht 170.2 cm; Wt 54.8 kg
[2020-01-17] MEDS ORDERED: AMLO10TA8 PO (16:37)
--- NOTE | 2020-01-17 16:40 | NUR ---
THIS IS A 50 YO M W/ C/O SOB AND "WEAK BLOOD" X3 DAYS. PT REPORTS HX OF ANEMIA, KF DIALYSIS PT MWF, MISSED DIALYSIS YESTERDAY. PT DENIES CP/DIZZINESS/ABD PAIN. PT RESP EVEN AND UNLABORED, VSS, NADN. PT RESTING ON GURNEY W/ CALL LIGHT IN REACH, CONNECTED TO ALL MONITORING, SIDE RAILS UPX2. AWAITING ED EVAL.
--- NOTE | 2020-01-17 16:51 | NUR ---
ES TURNER IN ROOM.
--- NOTE | 2020-01-17 16:56 | NUR ---
PT AMBULATED TO THE BATHROOM W/ A STEADY GAIT. URINE CUP PROVIDED.
[2020-01-17 17:20] LABS: BASOPHILS # (AUTO) 0.04 x10^3/uL (0-0.1); BASOPHILS % (AUTO) 0 % (0-1); EOSINOPHILS # (AUTO) 0.36 x10^3/uL (0-0.4); EOSINOPHILS % (AUTO) 3 % (1-7); LYMPHOCYTES # (AUTO) 1.76 x10^3/uL (1-3.4); LYMPHOCYTES % (AUTO) 12 % (22-44); MD NO; MEAN CORPUSCULAR HEMOGLOBIN 28.3 pg (27.5-34.5); MEAN CORPUSCULAR HGB CONC 32.5 g/dL (33.2-36.2); MEAN CORPUSCULAR VOLUME 87.1 fL (81-97); MEAN PLATELET VOLUME 7.4 fL (7.4-10.4); MONOCYTES # (AUTO) 0.79 x10^3/uL (0.2-0.8); MONOCYTES % (AUTO) 6 % (2-9); NEUTROPHILS # (AUTO) 11.32 x10^3/uL (1.8-6.8); NEUTROPHILS % (AUTO) 79 % (42-75); PLATELET COUNT 238 x10^3/uL (130-400); RED BLOOD COUNT 3.56 x10^6/uL (4.38-5.82)
[2020-01-17 17:30] LABS: ALBUMIN 4.3 g/dL (3.4-5.0); ANION GAP 13 mmol/L (5-15); CALCIUM 8.9 mg/dL (8.5-10.1); CHLORIDE 99 mmol/L (98-107)
[2020-01-17 17:30] LABS: MICROSCOPIC AUTO
[2020-01-17 17:34] LABS: ALANINE AMINOTRANSFERASE 35 U/L (12-78); ALKALINE PHOSPHATASE 234 U/L (45-117); BILIRUBIN,TOTAL 1.8 mg/dL (0.2-1.0); TOTAL PROTEIN 9.4 g/dL (6.4-8.2)
[2020-01-17] MEDS ORDERED: SODIUM BICARB 8.4%, 50ML SYRINGE IVPush ONE (18:00)
[2020-01-17] MEDS ORDERED: CALCIUM CHLORIDE 10%, 10ML SYR IVPush ONE (18:00)
[2020-01-17] MEDS ORDERED: SODIUM CHLORIDE FLUSH 10ML SYR IVF ONE (18:00)
[2020-01-17] MEDS ORDERED: DEXTROSE 50%, 50ML SYRINGE IVPush ONE (18:00)
[2020-01-17] MEDS ORDERED: DEXTROSE 50%, 50ML SYRINGE ONE (18:16)
[2020-01-17] MEDS ORDERED: SODIUM BICARBONATE 1 MEQ/ML, 50ML VIAL ONE (18:16)
[2020-01-17] MEDS ORDERED: INSULIN SINGLE DOSE, ER ONE (18:16)
[2020-01-17] MEDS ORDERED: CALCIUM CHLORIDE 10%, 10ML SYR ONE (18:20)
[2020-01-17] MEDS: INSULIN REGULAR 100 UNITS/ML, 3ML VIAL IVPush ONE ×2 (18:29→18:38)
[2020-01-17] MEDS ORDERED: AZITHROMYCIN 500 MG in SODIUM CHLORIDE 0.9% 250 ML IVPB ONE (19:00)
[2020-01-17] MEDS ORDERED: CEFTRIAXONE PMX 1GM/50ML 50 ML IVPB ONE (19:00)
[2020-01-17] MEDS ORDERED: CEFTRIAXONE PMX 1GM/50ML 50 ML ONE (19:55)
[2020-01-17] MEDS ORDERED: SODIUM CHLORIDE FLUSH 10ML SYR IVF PRN (20:00)
--- NOTE | 2020-01-17 20:00 | NUR ---
PT PROVIDED A SANDWICH AND DIET SPRITE AT PT REQUEST
--- NOTE | 2020-01-17 20:28 | NUR ---
HOSPITAL BED REQUESTED FOR PT
[2020-01-17] MEDS ORDERED: morphine SULFATE 10 MG/ML, 1ML IVPush PRN (20:30)
[2020-01-17] MEDS ORDERED: PROMETHAZINE 25 MG/ML, 1ML IM PRN (20:30)
[2020-01-17] MEDS ORDERED: LORazepam 2 MG/ML, 1ML IVPush PRN (20:30)
[2020-01-17] MEDS ORDERED: hydrALAzine 20 MG/ML, 1ML IVPush PRN (20:30)
[2020-01-17] MEDS ORDERED: ACETAMINOPHEN 325 MG TABLET PO PRN (20:30)
[2020-01-17] MEDS ORDERED: ONDANSETRON 2MG/ML, 2ML IVPush PRN (20:30)
[2020-01-17] MEDS ORDERED: VANCOMYCIN PER PHARMACY MC PRN (20:30)
[2020-01-17] MEDS ORDERED: SODIUM ZIRCONIUM CYCLOSILICATE 10 GM PO ONE (20:30)
[2020-01-17] MEDS ORDERED: GABAPENTIN 300 MG CAPSULE PO PRN (20:30)
--- NOTE | 2020-01-17 20:45 | NUR ---
PT HAS C/O 7/10 BACK PAIN AND IS REQUESTING MEDICATION FOR IT.
[2020-01-17] MEDS ORDERED: DOXYCYCLINE 100MG TABLET ONE (20:57)
[2020-01-17] MEDS ORDERED: GABAPENTIN 300 MG CAPSULE ONE (20:57)
[2020-01-17] MEDS ORDERED: HEPARIN 5,000 UNITS/ML, 1ML ONE (20:57)
[2020-01-17] MEDS: HEPARIN 5,000 UNITS/ML, 1ML SQ SCH (21:04)
[2020-01-17] MEDS: DOXYCYCLINE 100MG TABLET PO SCH (21:04)
--- NOTE | 2020-01-17 21:20 | NUR ---
PT PLACED IN HOSPITAL BED AND MOVED CLOSE TO RN STATION FOR FALL PERVENTION.
--- NOTE | 2020-01-17 22:10 | NUR ---
PT STATED "HE WAS ANXIOUS AND CAN NOT RELAX, PT ASKED FOR A POSIBLE MEDICATION FOR IT"
[2020-01-17] MEDS ORDERED: LORazepam 2 MG/ML, 1ML ONE (22:12)
--- NOTE | 2020-01-17 22:46 | NUR ---
PT KEEPS UNPLUGGING PULSE OX, B/P CUFF AND SKILLS INSTRUCTOR AND TAKING OFF NASAL CANULA. PT REFUSES TO USE URNIAL, BED SIDE POTTY OR CALL LIGHT AND WILL JUST STAND UP AND UNPLUG VITAL CORDS AND WALK DOWN JO TO BATHROOM WITH OUT WARNING. PT EDUCATED MULTIPLE TIMES
--- NOTE | 2020-01-17 23:09 | NUR ---
Agustín berger in ED - 01/17/20 at 2318 by JASON PT REFUSES TO WEAR MASK AND WILL NOT COVE MASK WHEN HE IS COUGHING. PT COUGHS FREQUENTLY IN WRITERS DIRECTION
--- NOTE | 2020-01-17 23:18 | NUR ---
PT REFUSES TO WEAR MASK AND WILL NOT COVER MOUTH WHEN HE IS COUGHING. PT COUGHS FREQUENTLY IN WRITERS DIRECTION
--- NOTE | 2020-01-17 23:55 | NUR ---
PT CURRENTLY SLEEPING, PT HAS BED SIDE POTTY AND CALL LIGHT AT REACH
--- NOTE | 2020-01-18 00:45 | NUR ---
PT PLACED ON A OPEN FAACED O2 MASK FOR PT COMFORT, IT IS HARD TO GET A ACCURATE PT SAT ON PT'S FINGERS. PT FINGER ARE COOLER TO THE TOUCH THAN ARMS. PULSE OX MOVED TO PT EAR WITH A BETTER READING
[2020-01-18] MEDS ORDERED: PROMETHAZINE 25 MG/ML, 1ML ONE (00:56)
--- NOTE | 2020-01-18 00:58 | NUR ---
PT HAS C/O NAUSEA AND ASKED FOR MEDS FOR IT, PT AMBULAATED TO BATHROOM AND BACK TO BED WITH BRAILLE TEACHER ASSISTANCE.
[2020-01-18] MEDS ORDERED: VANCOMYCIN 1,000 MG in SODIUM CHLORIDE 0.9% 100 ML IV ONE (01:00)
--- NOTE | 2020-01-18 01:52 | NUR ---
BREAK RN: PT. RESTING ON HOSPITAL BED WITH EYES CLOSED. RESPIRATIONS VISIBLE AND NON-LABORED. ALL SAFETY MEASURES OBSERVED. IV ABX INFUSING PER ORDER.
--- NOTE | 2020-01-18 02:55 | NUR ---
REPORT GIVEN TO ELOY DONALD
[2020-01-18 03:58] VITALS: BP 166/100
[2020-01-18] MEDS ORDERED: PHARMACOKINETIC MONITORING MC PRN (04:00)
[2020-01-18] MEDS: HEPARIN 5,000 UNITS/ML, 1ML SQ SCH (04:35)
[2020-01-18 06:30] LABS: ANION GAP 18 mmol/L (5-15); CALCIUM 8.8 mg/dL (8.5-10.1); CHLORIDE 100 mmol/L (98-107)
[2020-01-18 06:33] LABS: MEAN CORPUSCULAR HEMOGLOBIN 28.6 pg (27.5-34.5); MEAN CORPUSCULAR HGB CONC 32.5 g/dL (33.2-36.2); MEAN CORPUSCULAR VOLUME 88.1 fL (81-97); MEAN PLATELET VOLUME 7.6 fL (7.4-10.4); PLATELET COUNT 290 x10^3/uL (130-400); RED BLOOD COUNT 3.55 x10^6/uL (4.38-5.82)
[2020-01-18] MEDS ORDERED: PROPOFOL 100 ML IV ONE (06:45)
[2020-01-18] MEDS ORDERED: NOREPINEPHRINE 8 MG in SODIUM CHLORIDE 0.9% 242 ML IV PRN (07:11)
[2020-01-18] MEDS ORDERED: PROPOFOL 100 ML IV PRN (07:11)
[2020-01-18 07:26] LABS: BASOPHILS # (AUTO) 0.01 x10^3/uL (0-0.1); BASOPHILS % (AUTO) 0 % (0-1); EOSINOPHILS % (AUTO) 0 % (1-7); LYMPHOCYTES # (AUTO) 0.63 x10^3/uL (1-3.4); LYMPHOCYTES % (AUTO) 3 % (22-44); MD SCAN; MONOCYTES % (AUTO) 3 % (2-9); NEUTROPHILS # (AUTO) 19.51 x10^3/uL (1.8-6.8); NEUTROPHILS % (AUTO) 94 % (42-75)
[2020-01-18] MEDS ORDERED: GLUCAGON 1 MG IM PRN (07:30)
[2020-01-18] MEDS ORDERED: FENTANYL PF 100 MCG/2ML IVPush PRN (07:30)
[2020-01-18] MEDS ORDERED: SENNA/DOCUSATE TABLET NG PRN (07:30)
[2020-01-18] MEDS ORDERED: SENNA 176 MG/5 ML ORAL SOL NG PRN (07:30)
[2020-01-18] MEDS ORDERED: DEXTROSE 4 GM TAB.CHEW PO PRN (07:30)
[2020-01-18] MEDS ORDERED: BISACODYL 10 MG SUPP PR PRN (07:30)
[2020-01-18] MEDS ORDERED: LIDOCAINE-MPF 1%, 2ML ENDO PRN (07:30)
[2020-01-18] MEDS ORDERED: LACTULOSE 20 GM/30 ML UDC NG PRN (07:30)
[2020-01-18] MEDS ORDERED: PHARMACY MAY ADJ FOR RENAL FX MC SCH (07:30)
[2020-01-18] MEDS ORDERED: DEXTROSE 50%, 50ML SYRINGE IVPush PRN (07:30)
[2020-01-18 07:56] LABS: TRIGLYCERIDES 148 mg/dL (50-200)
[2020-01-18] MEDS ORDERED: PROPOFOL 10 MG/ML, 100ML IV ONE (08:00)
[2020-01-18] MEDS ORDERED: ATROPINE SYRINGE 0.1 MG/ML, 10ML ONE (08:13)
[2020-01-18] MEDS: AMLODIPINE 10 MG TAB PO SCH (08:16)
[2020-01-18] MEDS: SENNA/DOCUSATE TABLET PO SCH (09:00)
[2020-01-18] MEDS ORDERED: HEPARIN 5,000 UNITS/ML, 1ML IV ONE (09:30)
[2020-01-18] MEDS: DOXYCYCLINE 100MG TABLET PO SCH (09:52)
[2020-01-18] MEDS: HEPARIN 25,000 UNITS/250ML PMX 250 ML IV PRN (10:02)
[2020-01-18] MEDS: SODIUM CHLORIDE FLUSH 10ML SYR IVF SCH ×2 (10:03→20:18)
[2020-01-18] MEDS: ASPIRIN 81 MG TABLET CHEW PO SCH (10:04)
[2020-01-18] MEDS ORDERED: DOXYCYCLINE 50 MG/5 ML ORAL SUSP PO SCH (10:16)
[2020-01-18] MEDS: PIPERACILLIN/TAZO/PMX 2.25GM 50 ML IV SCH ×2 (10:54→17:43)
[2020-01-18] MEDS ORDERED: PHENYLEPHRINE 50 MG in SODIUM CHLORIDE 0.9% 245 ML IV PRN (11:15)
[2020-01-18] MEDS ORDERED: ARANESP 40 MCG/ML **ESRD SQ SCH (11:30)
[2020-01-18 12:24] LABS: ANION GAP 15 mmol/L (5-15); CALCIUM 9.8 mg/dL (8.5-10.1); CHLORIDE 98 mmol/L (98-107); CREATININE 5.01 mg/dL (0.7-1.3); D-DIMER 1.14 ug/mlFEU (0.00-0.52); INTERNATIONAL NORMALIZED RATIO 1.11 (0.93-1.1); PROTHROMBIN TIME 11.8 Seconds (9.6-11.5)
[2020-01-18] MEDS ORDERED: CEFTRIAXONE PMX 1GM/50ML 50 ML IV SCH (18:00)
[2020-01-18] MEDS: DOXYCYCLINE 50 MG/5 ML ORAL SUSP PO SCH (20:19)
[2020-01-18] MEDS: HEPARIN 5,000 UNITS/ML, 1ML IV PRN (23:18)
[2020-01-19] MEDS: PIPERACILLIN/TAZO/PMX 2.25GM 50 ML IV SCH ×3 (00:49→16:28)
[2020-01-19 06:11] LABS: BASOPHILS # (AUTO) 0.03 x10^3/uL (0-0.1); BASOPHILS % (AUTO) 0 % (0-1); EOSINOPHILS % (AUTO) 0 % (1-7); LYMPHOCYTES # (AUTO) 1.45 x10^3/uL (1-3.4); LYMPHOCYTES % (AUTO) 9 % (22-44); MD NO; MEAN CORPUSCULAR HEMOGLOBIN 28.5 pg (27.5-34.5); MEAN CORPUSCULAR HGB CONC 33.1 g/dL (33.2-36.2); MEAN CORPUSCULAR VOLUME 86.2 fL (81-97); MEAN PLATELET VOLUME 7.9 fL (7.4-10.4); MONOCYTES % (AUTO) 4 % (2-9); NEUTROPHILS # (AUTO) 13.53 x10^3/uL (1.8-6.8); NEUTROPHILS % (AUTO) 87 % (42-75); PLATELET COUNT 215 x10^3/uL (130-400); RED BLOOD COUNT 2.93 x10^6/uL (4.38-5.82); RED CELL DISTRIBUTION WIDTH 17.8 % (9.4-14.8)
[2020-01-19 06:15] LABS: ALBUMIN 2.8 g/dL (3.4-5.0); ANION GAP 13 mmol/L (5-15); CALCIUM 8.5 mg/dL (8.5-10.1); CHLORIDE 98 mmol/L (98-107)
[2020-01-19] MEDS: ASPIRIN 81 MG TABLET CHEW PO SCH (08:29)
[2020-01-19] MEDS: SODIUM CHLORIDE FLUSH 10ML SYR IVF SCH ×2 (08:29→20:20)
[2020-01-19] MEDS: AMLODIPINE 10 MG TAB PO SCH (08:29)
[2020-01-19] MEDS: DOXYCYCLINE 50 MG/5 ML ORAL SUSP PO SCH ×2 (08:29→20:19)
[2020-01-19] MEDS: SENNA/DOCUSATE TABLET PO SCH (08:30)
[2020-01-19] MEDS ORDERED: VANCOMYCIN 1,200 MG in SODIUM CHLORIDE 0.9% 250 ML IV ONE ×2 (10:00→14:30)
[2020-01-19] MEDS: GUAIFENESIN ER 600 MG TABLET PO SCH ×2 (10:56→20:19)
[2020-01-19] MEDS: HEPARIN 25,000 UNITS/250ML PMX 250 ML IV PRN (13:11)
[2020-01-19] MEDS: HEPARIN 5,000 UNITS/ML, 1ML IV PRN ×2 (13:11→20:19)
[2020-01-19] MEDS: PIPERACILLIN/TAZO 0.75 GM in SODIUM CHLORIDE 0.9% 50 ML IV SCH (18:32)
[2020-01-19] MEDS: ATORVASTATIN 40 MG TABLET PO SCH (20:19)
[2020-01-20] MEDS: PIPERACILLIN/TAZO/PMX 2.25GM 50 ML IV SCH ×3 (00:12→16:45)
[2020-01-20 02:50] LABS: BASOPHILS # (AUTO) 0.05 x10^3/uL (0-0.1); BASOPHILS % (AUTO) 0 % (0-1); EOSINOPHILS # (AUTO) 0.23 x10^3/uL (0-0.4); EOSINOPHILS % (AUTO) 2 % (1-7); LYMPHOCYTES # (AUTO) 1.66 x10^3/uL (1-3.4); LYMPHOCYTES % (AUTO) 13 % (22-44); MD NO; MEAN CORPUSCULAR HEMOGLOBIN 28.4 pg (27.5-34.5); MEAN CORPUSCULAR HGB CONC 32.8 g/dL (33.2-36.2); MEAN CORPUSCULAR VOLUME 86.6 fL (81-97); MONOCYTES # (AUTO) 0.73 x10^3/uL (0.2-0.8); MONOCYTES % (AUTO) 6 % (2-9); NEUTROPHILS # (AUTO) 9.95 x10^3/uL (1.8-6.8); NEUTROPHILS % (AUTO) 79 % (42-75); PLATELET COUNT 222 x10^3/uL (130-400); RED BLOOD COUNT 3.01 x10^6/uL (4.38-5.82); RED CELL DISTRIBUTION WIDTH 17.4 % (9.4-14.8)
[2020-01-20 03:01] LABS: ALBUMIN 2.6 g/dL (3.4-5.0); ANION GAP 12 mmol/L (5-15); CALCIUM 8.6 mg/dL (8.5-10.1); CHLORIDE 99 mmol/L (98-107); CREATININE 7.12 mg/dL (0.7-1.3)
[2020-01-20] MEDS: AMLODIPINE 10 MG TAB PO SCH (08:40)
[2020-01-20] MEDS: ASPIRIN 81 MG TABLET CHEW PO SCH (08:40)
[2020-01-20] MEDS: DOXYCYCLINE 50 MG/5 ML ORAL SUSP PO SCH (08:40)
[2020-01-20] MEDS: SODIUM CHLORIDE FLUSH 10ML SYR IVF SCH ×2 (08:41→21:15)
[2020-01-20] MEDS: GUAIFENESIN ER 600 MG TABLET PO SCH ×2 (08:41→21:14)
[2020-01-20] MEDS: SENNA/DOCUSATE TABLET PO SCH (08:42)
[2020-01-20] MEDS: HEPARIN 5,000 UNITS/ML, 1ML IV PRN (12:20)
[2020-01-20] MEDS: PIPERACILLIN/TAZO 0.75 GM in SODIUM CHLORIDE 0.9% 50 ML IV SCH (15:16)
[2020-01-20] MEDS: HEPARIN 5,000 UNITS/ML, 1ML SQ SCH (15:27)
[2020-01-20 19:16] VITALS: BP 146/90
[2020-01-20] MEDS: ATORVASTATIN 40 MG TABLET PO SCH (21:14)
[2020-01-20] MEDS: DOXYCYCLINE 100MG TABLET PO SCH (21:14)
[2020-01-21 00:36] VITALS: BP 134/82
[2020-01-21] MEDS: PIPERACILLIN/TAZO/PMX 2.25GM 50 ML IV SCH ×3 (00:59→17:56)
[2020-01-21] MEDS: HEPARIN 5,000 UNITS/ML, 1ML SQ SCH ×2 (03:42→15:00)
[2020-01-21 05:21] LABS: BASOPHILS # (AUTO) 0.02 x10^3/uL (0-0.1); BASOPHILS % (AUTO) 0 % (0-1); EOSINOPHILS # (AUTO) 0.35 x10^3/uL (0-0.4); EOSINOPHILS % (AUTO) 4 % (1-7); LYMPHOCYTES # (AUTO) 1.85 x10^3/uL (1-3.4); LYMPHOCYTES % (AUTO) 21 % (22-44); MD NO; MEAN CORPUSCULAR HEMOGLOBIN 28.6 pg (27.5-34.5); MEAN CORPUSCULAR VOLUME 86.9 fL (81-97); MEAN PLATELET VOLUME 7.8 fL (7.4-10.4); MONOCYTES # (AUTO) 0.68 x10^3/uL (0.2-0.8); MONOCYTES % (AUTO) 8 % (2-9); NEUTROPHILS # (AUTO) 5.87 x10^3/uL (1.8-6.8); NEUTROPHILS % (AUTO) 67 % (42-75); PLATELET COUNT 241 x10^3/uL (130-400); RED BLOOD COUNT 2.95 x10^6/uL (4.38-5.82); RED CELL DISTRIBUTION WIDTH 16.8 % (9.4-14.8)
[2020-01-21 05:29] LABS: ALBUMIN 2.7 g/dL (3.4-5.0); ANION GAP 14 mmol/L (5-15); CALCIUM 9.1 mg/dL (8.5-10.1); CHLORIDE 101 mmol/L (98-107)
[2020-01-21 05:36] LABS: % IRON SATURATION 61 % (20-55); ALANINE AMINOTRANSFERASE 23 U/L (12-78); ALKALINE PHOSPHATASE 126 U/L (45-117); BILIRUBIN,TOTAL 1.3 mg/dL (0.2-1.0); IRON LEVEL 83 mcg/dL (65-175); TOTAL IRON BINDING CAPACITY 136 mcg/dL (250-450); TOTAL PROTEIN 8.1 g/dL (6.4-8.2)
[2020-01-21] MEDS: SENNA/DOCUSATE TABLET PO SCH (08:40)
[2020-01-21] MEDS: DOXYCYCLINE 100MG TABLET PO SCH ×2 (08:40→21:18)
[2020-01-21] MEDS: GUAIFENESIN ER 600 MG TABLET PO SCH ×2 (08:40→21:18)
[2020-01-21] MEDS: AMLODIPINE 10 MG TAB PO SCH (08:40)
[2020-01-21] MEDS: ASPIRIN 81 MG TABLET CHEW PO SCH (08:40)
[2020-01-21] MEDS: SODIUM CHLORIDE FLUSH 10ML SYR IVF SCH ×2 (08:41→21:18)
[2020-01-21 08:56] VITALS: BP 136/77
[2020-01-21] MEDS: SEVELAMER CARBONATE 800MG TAB PO SCH ×2 (12:00→17:55)
[2020-01-21 14:57] VITALS: BP 156/72
[2020-01-21] MEDS: PIPERACILLIN/TAZO 0.75 GM in SODIUM CHLORIDE 0.9% 50 ML IV SCH (17:55)
[2020-01-21 20:37] VITALS: BP 129/79
[2020-01-21] MEDS: ATORVASTATIN 40 MG TABLET PO SCH (21:18)
[2020-01-22] MEDS: PIPERACILLIN/TAZO/PMX 2.25GM 50 ML IV SCH ×2 (00:52→08:19)
[2020-01-22 00:57] VITALS: BP 121/79
[2020-01-22] MEDS: HEPARIN 5,000 UNITS/ML, 1ML SQ SCH (04:18)
[2020-01-22 06:47] LABS: ANION GAP 13 mmol/L (5-15); CHLORIDE 97 mmol/L (98-107); CREATININE 6.16 mg/dL (0.7-1.3)
[2020-01-22 06:48] LABS: BASOPHILS # (AUTO) 0.06 x10^3/uL (0-0.1); BASOPHILS % (AUTO) 1 % (0-1); EOSINOPHILS # (AUTO) 0.36 x10^3/uL (0-0.4); EOSINOPHILS % (AUTO) 3 % (1-7); LYMPHOCYTES # (AUTO) 2.11 x10^3/uL (1-3.4); LYMPHOCYTES % (AUTO) 19 % (22-44); MD NO; MEAN CORPUSCULAR HEMOGLOBIN 28.7 pg (27.5-34.5); MEAN PLATELET VOLUME 7.4 fL (7.4-10.4); MONOCYTES % (AUTO) 6 % (2-9); NEUTROPHILS # (AUTO) 8.01 x10^3/uL (1.8-6.8); NEUTROPHILS % (AUTO) 71 % (42-75); PLATELET COUNT 403 x10^3/uL (130-400); RED CELL DISTRIBUTION WIDTH 16.5 % (9.4-14.8)
[2020-01-22 06:59] VITALS: BP 119/79
[2020-01-22] MEDS ORDERED: REGADENOSON 0.4 MG/5 ML SYRINGE ONE (07:57)
[2020-01-22] MEDS: ASPIRIN 81 MG TABLET CHEW PO SCH (08:18)
[2020-01-22] MEDS: AMLODIPINE 10 MG TAB PO SCH (08:18)
[2020-01-22] MEDS: DOXYCYCLINE 100MG TABLET PO SCH (08:19)
[2020-01-22] MEDS: SEVELAMER CARBONATE 800MG TAB PO SCH ×2 (08:19→12:48)
[2020-01-22] MEDS: GUAIFENESIN ER 600 MG TABLET PO SCH (08:19)
[2020-01-22] MEDS: SODIUM CHLORIDE FLUSH 10ML SYR IVF SCH (08:19)
[2020-01-22] MEDS: SENNA/DOCUSATE TABLET PO SCH (08:19)
[2020-01-22 12:49] VITALS: BP 129/81
[2020-01-22] MEDS ORDERED: ATOR40TA78 PO (13:06)
[2020-01-22] MEDS ORDERED: ASPI-515 PO (13:06)
[2020-01-22] MEDS ORDERED: DOXY100T PO (13:09)
[2020-01-22] MEDS ORDERED: CEFD300C37 PO (13:09)
[2020-01-22] MEDS ORDERED: METO25TA35 PO (13:11)
[2020-01-22] MEDS ORDERED: METOPROLOL TARTRATE 25 MG TAB PO SCH (18:00)
[2020-01-25] MEDS ORDERED: DARBEPOETIN 100 MCG/ML SQ SCH (11:30)
== END 2020-01-22 15:17 | disposition home or self-care (01) | DRG 871 ==
LOC: ED 18:17 → EDIP 19:41 → 4NE 01-18 03:23 → ICU 01-18 06:14 → 5SO 01-20 17:57 → DCLOUNGE 01-22 15:11
PROVIDERS: ADMIT Family Medicine; ATTEND Family Medicine
PROC: 5A1D70Z Performance of Urinary Filtration, Intermittent, Less than 6 Hours Per Day (ICD-10-PCS; principal; 2020-01-18)
PROC: 0BH17EZ Insertion of Endotracheal Airway into Trachea, Via Natural or Artificial Opening (ICD-10-PCS; 2020-01-18)
PROC: 5A1D70Z Performance of Urinary Filtration, Intermittent, Less than 6 Hours Per Day (ICD-10-PCS; 2020-01-18)
PROC: 5A1935Z Respiratory Ventilation, Less than 24 Consecutive Hours (ICD-10-PCS; 2020-01-19)
DX: A41.9 Sepsis, unspecified organism (principal); I21.A1 Myocardial infarction type 2; J15.9 Unspecified bacterial pneumonia; J96.91 Respiratory failure, unspecified with hypoxia; N18.6 End stage renal disease; I12.0 Hypertensive chronic kidney disease with stage 5 chronic kidney disease or end stage renal disease; D63.1 Anemia in chronic kidney disease; E11.22 Type 2 diabetes mellitus with diabetic chronic kidney disease; E78.5 Hyperlipidemia, unspecified; E87.5 Hyperkalemia; E87.70 Fluid overload, unspecified; I08.1 Rheumatic disorders of both mitral and tricuspid valves; Z20.828 Contact with and (suspected) exposure to other viral communicable diseases; M10.9 Gout, unspecified; N25.0 Renal osteodystrophy; Z87.891 Personal history of nicotine dependence; Z91.14 Patient's other noncompliance with medication regimen; Z99.2 Dependence on renal dialysis
CPT/HCPCS: 36415; 36600; 71045; 78452; 80048; 80051; 80053; 80069; 80202; 81001; 82306; 82533; 82728; 82803; 82962; 83036; 83540; 83550; 83605; 83615; 83735; 83970; 84100; 84145; 84443; 84478; 84484; 84550; 85025; 85379; 85520; 85610; 87040; 87070; 87081; 87205; 90935; 93005; 93017; 93306; 94002; 96374; 96375; 99291; G0378; J0456; J0696; J0882; J1644; J2543; J2550; J2704; J2785; J3370; A9502; J1815; J2060; J2370; J7050; U0001-CS

== ENCOUNTER 2020-01-27 09:17 | Inpatient (IN) | payer MEDICAID ==
[~2020-01-27] VITALS: Ht 170.2 cm; Wt 56.4 kg
[~2020-01-27 09:17] MED LIST changes: +ASPI-515 PO; +ATOR40TA78 PO; +CEFD300C37 PO; +DOXY100T PO; +METO25TA35 PO
--- NOTE | 2020-01-27 09:23 | NUR ---
BIB EMS FOR SOB. WAS HOSPITALIZED FOR PNEUMONIA LAST WEEK. PT VAGUE, UNSURE IF ABX WERE FILLED, NON COMPLIANT W MEDS. VSS. PT NOT IN RESP DISTRESS, DENIES CP. TESTED - COVID. DENIES CP, SLIGHT COUGH. NO N/V/D. STATES HE HAD BLOOD IN STOOL THIS AM .
[2020-01-27] MEDS ORDERED: SODIUM CHLORIDE FLUSH 10ML SYR IVF ONE (09:30)
--- NOTE | 2020-01-27 09:58 | NUR ---
ekg in process
[2020-01-27 09:59] LABS: ALANINE AMINOTRANSFERASE 22 U/L (12-78); ALBUMIN 3.7 g/dL (3.4-5.0)
[2020-01-27 10:01] LABS: ANION GAP 23 mmol/L (5-15); CHLORIDE 100 mmol/L (98-107)
[2020-01-27 10:02] LABS: MEAN CORPUSCULAR HEMOGLOBIN 29.1 pg (27.5-34.5); MEAN CORPUSCULAR HGB CONC 32.5 g/dL (33.2-36.2); MEAN CORPUSCULAR VOLUME 89.4 fL (81-97); PLATELET COUNT 368 x10^3/uL (130-400); RED BLOOD COUNT 2.59 x10^6/uL (4.38-5.82); RED CELL DISTRIBUTION WIDTH 19.4 % (9.4-14.8)
[2020-01-27 10:03] LABS: ALKALINE PHOSPHATASE 142 U/L (45-117); BILIRUBIN,TOTAL 1.8 mg/dL (0.2-1.0); TOTAL PROTEIN 8.5 g/dL (6.4-8.2)
[2020-01-27 10:06] LABS: CALCIUM 8.9 mg/dL (8.5-10.1)
[2020-01-27 10:07] LABS: TROPONIN I 0.133 ng/mL (0.000-0.045)
[2020-01-27 10:23] LABS: BASOPHILS # (AUTO) 0.09 x10^3/uL (0-0.1); BASOPHILS % (AUTO) 1 % (0-1); EOSINOPHILS # (AUTO) 0.42 x10^3/uL (0-0.4); EOSINOPHILS % (AUTO) 4 % (1-7); LYMPHOCYTES # (AUTO) 1.27 x10^3/uL (1-3.4); LYMPHOCYTES % (AUTO) 10 % (22-44); MD MORPH REVIEW ONLY; MONOCYTES # (AUTO) 0.73 x10^3/uL (0.2-0.8); MONOCYTES % (AUTO) 6 % (2-9); NEUTROPHILS # (AUTO) 9.68 x10^3/uL (1.8-6.8); NEUTROPHILS % (AUTO) 79 % (42-75)
[2020-01-27 10:32] LABS: ANISOCYTOSIS 1+; POLYCHROMASIA 1+
[2020-01-27 10:33] LABS: <PLATELET ESTIMATE> ADEQUATE; <PLT MORPHOLOGY> NORMAL PLT MORPH
--- NOTE | 2020-01-27 11:23 | NUR ---
REPORT TO YANIV
[2020-01-27] MEDS ORDERED: CEFTRIAXONE PMX 1GM/50ML 50 ML ONE (11:24)
[2020-01-27] MEDS ORDERED: CEFTRIAXONE PMX 1GM/50ML 50 ML IV ONE (11:30)
--- NOTE | 2020-01-27 11:33 | NUR ---
BLOOD CULTURES DRAWN PRIOR ABX, SWABBED FOR COVID BY
[2020-01-27 11:54] VITALS: BP 141/86
[2020-01-27 12:30] VITALS: BP 141/86
[2020-01-27 14:41] VITALS: BP 148/69
[2020-01-27] MEDS ORDERED: POLYETHYLENE GLYCOL 17 GM PACKET PO PRN (16:00)
[2020-01-27] MEDS ORDERED: ONDANSETRON 2MG/ML, 2ML IVPush PRN (16:00)
[2020-01-27] MEDS ORDERED: DEXTROSE 4 GM TAB.CHEW PO PRN (16:00)
[2020-01-27] MEDS ORDERED: GLUCAGON 1 MG IM PRN (16:00)
[2020-01-27] MEDS ORDERED: DEXTROSE 50%, 50ML SYRINGE IVPush PRN (16:00)
[2020-01-27 17:14] LABS: TROPONIN I 0.124 ng/mL (0.000-0.045)
[2020-01-27 17:16] VITALS: BP 153/81
[2020-01-27] MEDS: HEPARIN 5,000 UNITS/ML, 1ML SQ SCH (17:18)
[2020-01-27] MEDS: METOPROLOL TARTRATE 25 MG TAB PO SCH (17:20)
[2020-01-27 18:33] VITALS: BP 143/85
[2020-01-27] MEDS: SODIUM CHLORIDE FLUSH 10ML SYR IVF SCH (19:21)
[2020-01-27] MEDS: LACTULOSE 10 GM/15 ML UDC PO SCH (19:21)
[2020-01-27] MEDS: ATORVASTATIN 40 MG TABLET PO SCH (19:21)
[2020-01-27 23:02] LABS: TROPONIN I 0.121 ng/mL (0.000-0.045)
[2020-01-28] VITALS (8 sets, daily range): BP systolic 123–156; BP diastolic 69–84
[2020-01-28] MEDS: HEPARIN 5,000 UNITS/ML, 1ML SQ SCH ×3 (00:37→17:24)
[2020-01-28] MEDS: METOPROLOL TARTRATE 25 MG TAB PO SCH ×2 (04:49→16:38)
[2020-01-28 07:43] LABS: BASOPHILS # (AUTO) 0.11 x10^3/uL (0-0.1); BASOPHILS % (AUTO) 1 % (0-1); EOSINOPHILS # (AUTO) 0.44 x10^3/uL (0-0.4); EOSINOPHILS % (AUTO) 5 % (1-7); LYMPHOCYTES # (AUTO) 2.04 x10^3/uL (1-3.4); LYMPHOCYTES % (AUTO) 23 % (22-44); MD NO; MEAN CORPUSCULAR HEMOGLOBIN 29.3 pg (27.5-34.5); MEAN CORPUSCULAR HGB CONC 32.8 g/dL (33.2-36.2); MEAN CORPUSCULAR VOLUME 89.3 fL (81-97); MEAN PLATELET VOLUME 7.2 fL (7.4-10.4); MONOCYTES % (AUTO) 8 % (2-9); NEUTROPHILS # (AUTO) 5.57 x10^3/uL (1.8-6.8); NEUTROPHILS % (AUTO) 63 % (42-75); PLATELET COUNT 367 x10^3/uL (130-400); RED BLOOD COUNT 2.59 x10^6/uL (4.38-5.82); RED CELL DISTRIBUTION WIDTH 19.6 % (9.4-14.8)
[2020-01-28 07:54] LABS: ALANINE AMINOTRANSFERASE 21 U/L (12-78); ALBUMIN 3.2 g/dL (3.4-5.0); ANION GAP 11 mmol/L (5-15); CALCIUM 9.4 mg/dL (8.5-10.1); CHLORIDE 100 mmol/L (98-107)
[2020-01-28 07:56] LABS: ALKALINE PHOSPHATASE 137 U/L (45-117); BILIRUBIN,TOTAL 1.1 mg/dL (0.2-1.0); TOTAL PROTEIN 8.2 g/dL (6.4-8.2)
[2020-01-28] MEDS: ACETAMINOPHEN 325 MG TABLET PO PRN (08:39)
[2020-01-28] MEDS: SODIUM CHLORIDE FLUSH 10ML SYR IVF SCH ×2 (08:40→21:27)
[2020-01-28] MEDS: LACTULOSE 10 GM/15 ML UDC PO SCH ×2 (08:40→21:26)
[2020-01-28] MEDS: ASPIRIN 81 MG TABLET EC PO SCH (08:40)
[2020-01-28] MEDS ORDERED: AMLODIPINE 10 MG TAB PO SCH (09:00)
[2020-01-28] MEDS ORDERED: CEFTRIAXONE PMX 1GM/50ML 50 ML IV SCH (09:30)
[2020-01-28] MEDS ORDERED: AZITHROMYCIN 500 MG TABLET PO SCH (09:30)
[2020-01-28] MEDS ORDERED: ARANESP 100 MCG/ML **ESRD SQ SCH (12:30)
[2020-01-28] MEDS ORDERED: ACETAMINOPHEN 325 MG TABLET PO ONE (14:30)
[2020-01-28] MEDS ORDERED: DIPHENHYDRAMINE 12.5MG/5ML, 10ML UDC PO ONE (14:30)
[2020-01-28] MEDS: ATORVASTATIN 40 MG TABLET PO SCH (21:26)
[2020-01-29 00:29] VITALS: BP 146/85
[2020-01-29] MEDS: HEPARIN 5,000 UNITS/ML, 1ML SQ SCH ×3 (00:31→16:43)
[2020-01-29 05:53] VITALS: BP 116/79
[2020-01-29] MEDS: METOPROLOL TARTRATE 25 MG TAB PO SCH (05:54)
[2020-01-29 08:48] VITALS: BP 118/73
[2020-01-29] MEDS: LACTULOSE 10 GM/15 ML UDC PO SCH ×2 (08:53→19:46)
[2020-01-29] MEDS: ASPIRIN 81 MG TABLET EC PO SCH (08:53)
[2020-01-29] MEDS: SODIUM CHLORIDE FLUSH 10ML SYR IVF SCH ×2 (08:54→19:47)
[2020-01-29] MEDS: CARVEDILOL 6.25 MG TABLET PO SCH ×2 (09:00→16:42)
[2020-01-29] MEDS ORDERED: SEVE800T8 PO (13:16)
[2020-01-29] MEDS ORDERED: CARV6.2512 PO (13:16)
[2020-01-29 13:26] VITALS: BP 92/58
[2020-01-29] MEDS: SEVELAMER CARBONATE 800MG TAB PO SCH (16:43)
[2020-01-29 16:44] VITALS: BP 95/68
[2020-01-29 19:45] VITALS: BP 115/73
[2020-01-29] MEDS: ATORVASTATIN 40 MG TABLET PO SCH (19:46)
[2020-01-30 00:28] VITALS: BP 141/84
[2020-01-30] MEDS: HEPARIN 5,000 UNITS/ML, 1ML SQ SCH ×3 (00:30→17:33)
[2020-01-30 05:29] VITALS: BP 114/88
[2020-01-30] MEDS: CARVEDILOL 6.25 MG TABLET PO SCH ×2 (05:30→17:33)
[2020-01-30 06:44] LABS: BASOPHILS # (AUTO) 0.08 x10^3/uL (0-0.1); BASOPHILS % (AUTO) 1 % (0-1); EOSINOPHILS # (AUTO) 0.39 x10^3/uL (0-0.4); EOSINOPHILS % (AUTO) 3 % (1-7); LYMPHOCYTES # (AUTO) 2.19 x10^3/uL (1-3.4); LYMPHOCYTES % (AUTO) 18 % (22-44); MD NO; MEAN CORPUSCULAR HEMOGLOBIN 29.4 pg (27.5-34.5); MEAN CORPUSCULAR HGB CONC 33.2 g/dL (33.2-36.2); MEAN CORPUSCULAR VOLUME 88.7 fL (81-97); MEAN PLATELET VOLUME 7.3 fL (7.4-10.4); MONOCYTES # (AUTO) 1.09 x10^3/uL (0.2-0.8); MONOCYTES % (AUTO) 9 % (2-9); NEUTROPHILS # (AUTO) 8.69 x10^3/uL (1.8-6.8); NEUTROPHILS % (AUTO) 70 % (42-75); PLATELET COUNT 433 x10^3/uL (130-400); RED BLOOD COUNT 3.65 x10^6/uL (4.38-5.82)
[2020-01-30 06:45] VITALS: BP 138/78
[2020-01-30 06:52] LABS: % IRON SATURATION 41 % (20-55); ALBUMIN 3.4 g/dL (3.4-5.0); ANION GAP 16 mmol/L (5-15); CHLORIDE 97 mmol/L (98-107); IRON LEVEL 82 mcg/dL (65-175); TOTAL IRON BINDING CAPACITY 200 mcg/dL (250-450)
[2020-01-30] MEDS: SODIUM CHLORIDE FLUSH 10ML SYR IVF SCH ×2 (07:48→21:12)
[2020-01-30] MEDS: LACTULOSE 10 GM/15 ML UDC PO SCH ×2 (07:48→21:11)
[2020-01-30] MEDS: SEVELAMER CARBONATE 800MG TAB PO SCH ×3 (07:49→17:33)
[2020-01-30] MEDS: ASPIRIN 81 MG TABLET EC PO SCH (07:49)
[2020-01-30] MEDS: ACETAMINOPHEN 325 MG TABLET PO PRN (07:54)
[2020-01-30] MEDS ORDERED: COLCHICINE 0.6 MG CAPSULE PO ONE (12:00)
[2020-01-30 12:08] VITALS: BP 112/62
[2020-01-30] MEDS ORDERED: ARANESP 100 MCG/ML **ESRD SQ SCH (12:13)
[2020-01-30] MEDS: ALLOPURINOL 100 MG TABLET PO SCH (12:48)
[2020-01-30 18:55] VITALS: BP 113/69
[2020-01-30] MEDS: ATORVASTATIN 40 MG TABLET PO SCH (21:12)
[2020-01-31 00:20] VITALS: BP 115/73
[2020-01-31] MEDS: HEPARIN 5,000 UNITS/ML, 1ML SQ SCH ×3 (00:44→17:21)
[2020-01-31] MEDS: CARVEDILOL 6.25 MG TABLET PO SCH ×2 (05:29→17:24)
[2020-01-31 05:54] LABS: BASOPHILS # (AUTO) 0.03 x10^3/uL (0-0.1); BASOPHILS % (AUTO) 0 % (0-1); EOSINOPHILS # (AUTO) 0.34 x10^3/uL (0-0.4); EOSINOPHILS % (AUTO) 3 % (1-7); LYMPHOCYTES # (AUTO) 3.05 x10^3/uL (1-3.4); LYMPHOCYTES % (AUTO) 23 % (22-44); MD NO; MEAN CORPUSCULAR HEMOGLOBIN 29.2 pg (27.5-34.5); MEAN CORPUSCULAR HGB CONC 33.2 g/dL (33.2-36.2); MEAN CORPUSCULAR VOLUME 87.8 fL (81-97); MEAN PLATELET VOLUME 7.6 fL (7.4-10.4); MONOCYTES # (AUTO) 1.17 x10^3/uL (0.2-0.8); MONOCYTES % (AUTO) 9 % (2-9); NEUTROPHILS # (AUTO) 8.77 x10^3/uL (1.8-6.8); NEUTROPHILS % (AUTO) 66 % (42-75); PLATELET COUNT 461 x10^3/uL (130-400); RED BLOOD COUNT 3.66 x10^6/uL (4.38-5.82); RED CELL DISTRIBUTION WIDTH 18.1 % (9.4-14.8)
[2020-01-31 06:01] LABS: ANION GAP 9 mmol/L (5-15); CALCIUM 9.9 mg/dL (8.5-10.1); CHLORIDE 92 mmol/L (98-107); CREATININE 8.17 mg/dL (0.7-1.3)
[2020-01-31 06:56] VITALS: BP 110/66
[2020-01-31] MEDS: LACTULOSE 10 GM/15 ML UDC PO SCH ×2 (09:00→20:27)
[2020-01-31] MEDS: ASPIRIN 81 MG TABLET EC PO SCH (09:31)
[2020-01-31] MEDS: SEVELAMER CARBONATE 800MG TAB PO SCH ×3 (09:31→17:21)
[2020-01-31] MEDS: ALLOPURINOL 100 MG TABLET PO SCH (09:31)
[2020-01-31] MEDS: SODIUM CHLORIDE FLUSH 10ML SYR IVF SCH ×2 (09:32→20:28)
[2020-01-31] MEDS: ACETAMINOPHEN 325 MG TABLET PO PRN ×3 (09:45→23:49)
[2020-01-31 12:44] VITALS: BP 99/60
[2020-01-31 18:37] VITALS: BP 92/65
[2020-01-31] MEDS: ATORVASTATIN 40 MG TABLET PO SCH (20:27)
[2020-02-01 00:12] VITALS: BP 101/72
[2020-02-01] MEDS: HEPARIN 5,000 UNITS/ML, 1ML SQ SCH ×3 (01:02→17:08)
[2020-02-01 05:33] VITALS: BP 143/82
[2020-02-01] MEDS: ACETAMINOPHEN 325 MG TABLET PO PRN ×4 (05:34→21:28)
[2020-02-01] MEDS: CARVEDILOL 6.25 MG TABLET PO SCH ×2 (05:34→17:08)
[2020-02-01 06:10] LABS: BASOPHILS # (AUTO) 0.06 x10^3/uL (0-0.1); BASOPHILS % (AUTO) 0 % (0-1); EOSINOPHILS # (AUTO) 0.34 x10^3/uL (0-0.4); EOSINOPHILS % (AUTO) 3 % (1-7); LYMPHOCYTES % (AUTO) 19 % (22-44); MD NO; MEAN CORPUSCULAR HEMOGLOBIN 29.6 pg (27.5-34.5); MEAN CORPUSCULAR HGB CONC 33.7 g/dL (33.2-36.2); MEAN CORPUSCULAR VOLUME 87.8 fL (81-97); MEAN PLATELET VOLUME 7.3 fL (7.4-10.4); MONOCYTES # (AUTO) 0.97 x10^3/uL (0.2-0.8); MONOCYTES % (AUTO) 7 % (2-9); NEUTROPHILS # (AUTO) 9.43 x10^3/uL (1.8-6.8); NEUTROPHILS % (AUTO) 71 % (42-75); PLATELET COUNT 433 x10^3/uL (130-400); RED BLOOD COUNT 3.46 x10^6/uL (4.38-5.82); RED CELL DISTRIBUTION WIDTH 17.7 % (9.4-14.8)
[2020-02-01 06:17] LABS: ANION GAP 13 mmol/L (5-15); CALCIUM 9.4 mg/dL (8.5-10.1); CHLORIDE 92 mmol/L (98-107)
[2020-02-01 06:49] VITALS: BP 110/63
[2020-02-01] MEDS: SEVELAMER CARBONATE 800MG TAB PO SCH ×3 (09:16→17:08)
[2020-02-01] MEDS: SODIUM CHLORIDE FLUSH 10ML SYR IVF SCH ×2 (09:17→21:26)
[2020-02-01] MEDS: LACTULOSE 10 GM/15 ML UDC PO SCH ×2 (12:30→21:26)
[2020-02-01] MEDS: ALLOPURINOL 100 MG TABLET PO SCH (12:30)
[2020-02-01] MEDS: ASPIRIN 81 MG TABLET EC PO SCH (12:30)
[2020-02-01 13:17] VITALS: BP 95/58
[2020-02-01 19:11] VITALS: BP 130/78
[2020-02-01] MEDS: ATORVASTATIN 40 MG TABLET PO SCH (21:26)
[2020-02-02 00:52] VITALS: BP 121/77
[2020-02-02] MEDS: HEPARIN 5,000 UNITS/ML, 1ML SQ SCH ×3 (00:55→16:37)
[2020-02-02 05:03] LABS: BASOPHILS # (AUTO) 0.07 x10^3/uL (0-0.1); BASOPHILS % (AUTO) 1 % (0-1); EOSINOPHILS # (AUTO) 0.38 x10^3/uL (0-0.4); EOSINOPHILS % (AUTO) 3 % (1-7); LYMPHOCYTES # (AUTO) 3.05 x10^3/uL (1-3.4); LYMPHOCYTES % (AUTO) 25 % (22-44); MD NO; MEAN CORPUSCULAR HEMOGLOBIN 29.5 pg (27.5-34.5); MEAN CORPUSCULAR HGB CONC 33.1 g/dL (33.2-36.2); MEAN PLATELET VOLUME 7.5 fL (7.4-10.4); MONOCYTES # (AUTO) 1.15 x10^3/uL (0.2-0.8); MONOCYTES % (AUTO) 9 % (2-9); NEUTROPHILS # (AUTO) 7.71 x10^3/uL (1.8-6.8); NEUTROPHILS % (AUTO) 62 % (42-75); PLATELET COUNT 426 x10^3/uL (130-400); RED BLOOD COUNT 3.43 x10^6/uL (4.38-5.82); RED CELL DISTRIBUTION WIDTH 17.5 % (9.4-14.8)
[2020-02-02 06:21] VITALS: BP 104/70
[2020-02-02] MEDS: CARVEDILOL 6.25 MG TABLET PO SCH ×2 (06:21→16:36)
[2020-02-02] MEDS: ACETAMINOPHEN 325 MG TABLET PO PRN ×2 (06:21→21:28)
[2020-02-02 08:00] VITALS: BP 117/68
[2020-02-02] MEDS: SODIUM CHLORIDE FLUSH 10ML SYR IVF SCH ×2 (08:18→21:27)
[2020-02-02] MEDS: SEVELAMER CARBONATE 800MG TAB PO SCH ×3 (08:20→16:36)
[2020-02-02] MEDS: ALLOPURINOL 100 MG TABLET PO SCH (08:20)
[2020-02-02] MEDS: LACTULOSE 10 GM/15 ML UDC PO SCH ×2 (08:20→21:27)
[2020-02-02] MEDS: ASPIRIN 81 MG TABLET EC PO SCH (08:20)
[2020-02-02 14:27] VITALS: BP 117/96
[2020-02-02 18:58] VITALS: BP 146/88
[2020-02-02] MEDS: ATORVASTATIN 40 MG TABLET PO SCH (21:27)
[2020-02-03 00:26] VITALS: BP 134/84
[2020-02-03] MEDS: HEPARIN 5,000 UNITS/ML, 1ML SQ SCH ×2 (01:41→08:27)
[2020-02-03] MEDS: CARVEDILOL 6.25 MG TABLET PO SCH (05:46)
[2020-02-03 06:26] LABS: BASOPHILS # (AUTO) 0.08 x10^3/uL (0-0.1); BASOPHILS % (AUTO) 1 % (0-1); EOSINOPHILS # (AUTO) 0.32 x10^3/uL (0-0.4); EOSINOPHILS % (AUTO) 3 % (1-7); LYMPHOCYTES # (AUTO) 2.87 x10^3/uL (1-3.4); LYMPHOCYTES % (AUTO) 28 % (22-44); MD NO; MEAN CORPUSCULAR HEMOGLOBIN 29.9 pg (27.5-34.5); MEAN CORPUSCULAR HGB CONC 33.4 g/dL (33.2-36.2); MEAN CORPUSCULAR VOLUME 89.4 fL (81-97); MEAN PLATELET VOLUME 7.6 fL (7.4-10.4); MONOCYTES # (AUTO) 0.98 x10^3/uL (0.2-0.8); MONOCYTES % (AUTO) 10 % (2-9); NEUTROPHILS # (AUTO) 6.12 x10^3/uL (1.8-6.8); NEUTROPHILS % (AUTO) 59 % (42-75); PLATELET COUNT 367 x10^3/uL (130-400); RED BLOOD COUNT 3.27 x10^6/uL (4.38-5.82); RED CELL DISTRIBUTION WIDTH 18.1 % (9.4-14.8)
[2020-02-03 06:38] LABS: ANION GAP 11 mmol/L (5-15); CALCIUM 9.2 mg/dL (8.5-10.1); CHLORIDE 99 mmol/L (98-107)
[2020-02-03 07:53] VITALS: BP 132/76
[2020-02-03] MEDS ORDERED: SENNA/DOCUSATE TABLET PO PRN (08:00)
[2020-02-03] MEDS: ALLOPURINOL 100 MG TABLET PO SCH (08:27)
[2020-02-03] MEDS: ASPIRIN 81 MG TABLET EC PO SCH (08:27)
[2020-02-03] MEDS: SEVELAMER CARBONATE 800MG TAB PO SCH ×2 (08:27→13:19)
[2020-02-03] MEDS ORDERED: LACTOBACILLUS CHEW TABLET PO SCH (09:00)
[2020-02-03] MEDS ORDERED: ACID1TAB7 PO (10:36)
[2020-02-03] MEDS: SODIUM CHLORIDE FLUSH 10ML SYR IVF SCH (13:19)
[2020-02-03 13:51] VITALS: BP 94/61
[2020-02-04] MEDS ORDERED: ARANESP 100 MCG/ML **ESRD SQ SCH (12:30)
== END 2020-02-03 14:33 | disposition home or self-care (01) | DRG 280 ==
LOC: ED 09:34 → EDIP 10:58 → 4NW 11:42
PROVIDERS: ADMIT Internal Medicine; ATTEND Internal Medicine
PROC: 30233N1 Transfusion of Nonautologous Red Blood Cells into Peripheral Vein, Percutaneous Approach (ICD-10-PCS; principal; 2020-01-28)
DX: I21.A1 Myocardial infarction type 2 (principal); J81.0 Acute pulmonary edema; N18.6 End stage renal disease; E87.2 Acidosis; I12.0 Hypertensive chronic kidney disease with stage 5 chronic kidney disease or end stage renal disease; D63.1 Anemia in chronic kidney disease; E11.22 Type 2 diabetes mellitus with diabetic chronic kidney disease; E11.42 Type 2 diabetes mellitus with diabetic polyneuropathy; E87.5 Hyperkalemia; E87.70 Fluid overload, unspecified; F41.9 Anxiety disorder, unspecified; G47.00 Insomnia, unspecified; M10.9 Gout, unspecified; Z20.828 Contact with and (suspected) exposure to other viral communicable diseases; M19.90 Unspecified osteoarthritis, unspecified site; N25.0 Renal osteodystrophy; D72.829 Elevated white blood cell count, unspecified; E78.5 Hyperlipidemia, unspecified; Z79.82 Long term (current) use of aspirin; Z79.899 Other long term (current) drug therapy; Z87.891 Personal history of nicotine dependence; Z91.19 Patient's noncompliance with other medical treatment and regimen; Z99.2 Dependence on renal dialysis
CPT/HCPCS: 36415; 71045; 80048; 80053; 80069; 82728; 82962; 83036; 83540; 83550; 83615; 83735; 83880; 84100; 84145; 84484; 85025; 85379; 86140; 86850; 86900; 86923; 87040; 90935; 93005; 96374; 99291; G0378; J0696; J0882; J1644; P9016; U0001-CS

== ENCOUNTER 2020-03-04 16:49 | Inpatient (IN) | payer MEDICAID ==
[~2020-03-04] VITALS: Ht 170.2 cm; Wt 55.3 kg
[~2020-03-04 16:49] MED LIST changes: +ACID1TAB7 PO; +CARV6.2512 PO
--- NOTE | 2020-03-04 17:12 | NUR ---
PT BIB EMS FOR CHEST PAIN FOR 1 WEEK W COUGH, INCREASED WEAKNESS, SOB. DENIES GI N/V, AFEBRILE. PT COMPLIANT W DIALYSIS THOUGH MISSED THURSDAY BECAUSE WASNT FEELINGW WELL. PT HYPERTENSIVE. HOUSE CLEANER SUPERVISOR APPLIED.
[2020-03-04 18:13] LABS: BASOPHILS # (AUTO) 0.03 x10^3/uL (0-0.1); BASOPHILS % (AUTO) 0 % (0-1); EOSINOPHILS % (AUTO) 3 % (1-7); LYMPHOCYTES # (AUTO) 1.38 x10^3/uL (1-3.4); LYMPHOCYTES % (AUTO) 14 % (22-44); MD NO; MEAN CORPUSCULAR HEMOGLOBIN 29.4 pg (27.5-34.5); MEAN CORPUSCULAR HGB CONC 32.9 g/dL (33.2-36.2); MEAN CORPUSCULAR VOLUME 89.2 fL (81-97); MEAN PLATELET VOLUME 7.4 fL (7.4-10.4); MONOCYTES # (AUTO) 0.61 x10^3/uL (0.2-0.8); MONOCYTES % (AUTO) 6 % (2-9); NEUTROPHILS # (AUTO) 7.24 x10^3/uL (1.8-6.8); NEUTROPHILS % (AUTO) 76 % (42-75); PLATELET COUNT 227 x10^3/uL (130-400); RED BLOOD COUNT 2.93 x10^6/uL (4.38-5.82); RED CELL DISTRIBUTION WIDTH 16.1 % (9.4-14.8)
[2020-03-04 18:24] LABS: ALANINE AMINOTRANSFERASE 18 U/L (12-78); ALBUMIN 3.3 g/dL (3.4-5.0); ANION GAP 16 mmol/L (5-15); CALCIUM 8.7 mg/dL (8.5-10.1); CHLORIDE 101 mmol/L (98-107)
[2020-03-04 18:28] LABS: ALKALINE PHOSPHATASE 172 U/L (45-117); BILIRUBIN,TOTAL 0.9 mg/dL (0.2-1.0); TOTAL PROTEIN 8.5 g/dL (6.4-8.2); TROPONIN I < 0.015 ng/mL (0.000-0.045)
--- NOTE | 2020-03-04 18:51 | NUR ---
REPORT TO SOPHIA
[2020-03-04] MEDS ORDERED: DOXYCYCLINE 100 MG in DEXTROSE 5% 250 ML IV SCH (19:00)
[2020-03-04] MEDS ORDERED: CEFTRIAXONE PMX 1GM/50ML 50 ML IV ONE (19:00)
[2020-03-04] MEDS ORDERED: FUROSEMIDE 40 MG/4 ML ONE (19:20)
--- NOTE | 2020-03-04 19:29 | NUR ---
PT STARTED ON ABX. INFUSING WELL. PLACED ON 2L NC FOR COMFORT. SPO2 94% PRIOR. WILL CTM AWARE OF PLAN TO ADMIT.
[2020-03-04] MEDS ORDERED: FUROSEMIDE 40 MG/4 ML IV ONE (19:30)
[2020-03-04] MEDS ORDERED: ONDANSETRON 2MG/ML, 2ML IVPush PRN (20:00)
[2020-03-04] MEDS ORDERED: BISACODYL 10 MG SUPP PR PRN (20:00)
[2020-03-04] MEDS ORDERED: POLYETHYLENE GLYCOL 17 GM PACKET PO PRN (20:00)
[2020-03-04] MEDS: HEPARIN 5,000 UNITS/ML, 1ML SQ SCH ×2 (20:00→23:23)
[2020-03-04] MEDS ORDERED: hydrALAzine 20 MG/ML, 1ML IVPush PRN (20:00)
[2020-03-04] MEDS ORDERED: LEVOFLOXACIN/PMX 750MG/150ML 150 ML IV ONE (20:30)
[2020-03-04] MEDS ORDERED: INSULIN LISPRO 100 UNITS/ML, PEN SQ-INSULIN SCH (21:00)
[2020-03-04 21:06] VITALS: BP 189/115
[2020-03-04] MEDS ORDERED: ASPI-682 PO (22:02)
[2020-03-04] MEDS ORDERED: AMLO10TA8 PO (22:02)
[2020-03-04] MEDS ORDERED: GABA-826 PO (22:02)
[2020-03-04] MEDS: LACTOBACILLUS CHEW TABLET PO SCH (22:10)
[2020-03-04] MEDS: GABAPENTIN 100 MG CAPSULE PO SCH (22:12)
[2020-03-04] MEDS: ATORVASTATIN 40 MG TABLET PO SCH (22:12)
[2020-03-04] MEDS: LACTULOSE 10 GM/15 ML UDC PO SCH (22:13)
[2020-03-04] MEDS: ACETAMINOPHEN 325 MG TABLET PO PRN (22:13)
[2020-03-04] MEDS: MELATONIN 5 MG TABLET PO PRN (22:13)
[2020-03-04 23:00] VITALS: BP 156/84
[2020-03-04] MEDS: GUAIFENESIN 200 MG TABLET PO SCH (23:20)
[2020-03-04] MEDS: PIPERACILLIN/TAZO/PMX 4.5GM 100 ML IV SCH (23:20)
[2020-03-05 00:22] VITALS: BP 156/87
[2020-03-05 05:08] LABS: ALBUMIN 3.2 g/dL (3.4-5.0); ANION GAP 17 mmol/L (5-15); CALCIUM 9.4 mg/dL (8.5-10.1); CHLORIDE 99 mmol/L (98-107)
[2020-03-05 05:10] LABS: BASOPHILS # (AUTO) 0.05 x10^3/uL (0-0.1); BASOPHILS % (AUTO) 1 % (0-1); EOSINOPHILS # (AUTO) 0.16 x10^3/uL (0-0.4); EOSINOPHILS % (AUTO) 2 % (1-7); LYMPHOCYTES # (AUTO) 1.11 x10^3/uL (1-3.4); LYMPHOCYTES % (AUTO) 12 % (22-44); MD NO; MEAN CORPUSCULAR HEMOGLOBIN 29.6 pg (27.5-34.5); MEAN CORPUSCULAR HGB CONC 33.1 g/dL (33.2-36.2); MEAN CORPUSCULAR VOLUME 89.5 fL (81-97); MEAN PLATELET VOLUME 7.5 fL (7.4-10.4); MONOCYTES % (AUTO) 6 % (2-9); NEUTROPHILS # (AUTO) 7.59 x10^3/uL (1.8-6.8); NEUTROPHILS % (AUTO) 80 % (42-75); PLATELET COUNT 219 x10^3/uL (130-400); RED BLOOD COUNT 2.79 x10^6/uL (4.38-5.82); RED CELL DISTRIBUTION WIDTH 16.3 % (9.4-14.8)
[2020-03-05 05:12] LABS: ALANINE AMINOTRANSFERASE 19 U/L (12-78); ALKALINE PHOSPHATASE 169 U/L (45-117); BILIRUBIN,TOTAL 0.9 mg/dL (0.2-1.0); TOTAL PROTEIN 8.1 g/dL (6.4-8.2)
[2020-03-05 05:20] VITALS: BP 154/87
[2020-03-05] MEDS: CARVEDILOL 6.25 MG TABLET PO SCH ×2 (05:20→21:51)
[2020-03-05] MEDS: ACETAMINOPHEN 325 MG TABLET PO PRN ×2 (05:21→12:26)
[2020-03-05] MEDS: GUAIFENESIN 200 MG TABLET PO SCH ×4 (05:21→21:52)
[2020-03-05] MEDS: INSULIN LISPRO 100 UNITS/ML, PEN SQ-INSULIN SCH ×2 (07:00→11:00)
[2020-03-05 07:31] VITALS: BP 138/84
[2020-03-05] MEDS ORDERED: SUCROFERRIC OXYHYDROXIDE 500 MG HOMEMEDPO SCH (08:00)
[2020-03-05] MEDS: SEVELAMER CARBONATE 800MG TAB PO SCH ×3 (08:00→21:31)
[2020-03-05] MEDS: ASPIRIN 81 MG TABLET EC PO SCH (08:22)
[2020-03-05] MEDS: LACTOBACILLUS CHEW TABLET PO SCH ×3 (08:22→21:51)
[2020-03-05] MEDS: LACTULOSE 10 GM/15 ML UDC PO SCH ×2 (08:22→21:52)
[2020-03-05] MEDS: GABAPENTIN 100 MG CAPSULE PO SCH ×3 (08:22→21:52)
[2020-03-05] MEDS: SENNA/DOCUSATE TABLET PO SCH (09:00)
[2020-03-05] MEDS: PIPERACILLIN/TAZO/PMX 4.5GM 100 ML IV SCH ×2 (11:30→23:35)
[2020-03-05] MEDS: HEPARIN 5,000 UNITS/ML, 1ML SQ SCH ×2 (12:00→21:30)
[2020-03-05] MEDS ORDERED: VANCOMYCIN PER PHARMACY MC PRN (13:00)
[2020-03-05] MEDS ORDERED: VANCOMYCIN 1,500 MG in SODIUM CHLORIDE 0.9% 250 ML IV ONE (13:30)
[2020-03-05] MEDS ORDERED: PHARMACOKINETIC CONSULTATION MC ONE (13:30)
[2020-03-05] MEDS ORDERED: PHARMACOKINETIC MONITORING MC PRN (13:30)
[2020-03-05 13:38] VITALS: BP 143/75
[2020-03-05] MEDS: IBUPROFEN 200 MG TABLET PO PRN (14:25)
[2020-03-05 19:38] VITALS: BP 154/98
[2020-03-05] MEDS: ATORVASTATIN 40 MG TABLET PO SCH (21:52)
[2020-03-06] MEDS: HEPARIN 5,000 UNITS/ML, 1ML SQ SCH ×3 (03:12→20:00)
[2020-03-06 04:05] VITALS: BP 146/91
[2020-03-06] MEDS: CARVEDILOL 6.25 MG TABLET PO SCH ×2 (05:31→17:42)
[2020-03-06] MEDS: GUAIFENESIN 200 MG TABLET PO SCH ×4 (05:32→21:38)
[2020-03-06 05:36] LABS: BASOPHILS # (AUTO) 0.09 x10^3/uL (0-0.1); BASOPHILS % (AUTO) 1 % (0-1); EOSINOPHILS # (AUTO) 0.31 x10^3/uL (0-0.4); EOSINOPHILS % (AUTO) 3 % (1-7); LYMPHOCYTES # (AUTO) 1.12 x10^3/uL (1-3.4); LYMPHOCYTES % (AUTO) 11 % (22-44); MD NO; MEAN CORPUSCULAR HEMOGLOBIN 29.6 pg (27.5-34.5); MEAN CORPUSCULAR HGB CONC 33.2 g/dL (33.2-36.2); MEAN CORPUSCULAR VOLUME 89.1 fL (81-97); MEAN PLATELET VOLUME 7.8 fL (7.4-10.4); MONOCYTES # (AUTO) 0.84 x10^3/uL (0.2-0.8); MONOCYTES % (AUTO) 9 % (2-9); NEUTROPHILS # (AUTO) 7.52 x10^3/uL (1.8-6.8); NEUTROPHILS % (AUTO) 76 % (42-75); PLATELET COUNT 242 x10^3/uL (130-400); RED BLOOD COUNT 3.09 x10^6/uL (4.38-5.82); RED CELL DISTRIBUTION WIDTH 16.1 % (9.4-14.8)
[2020-03-06 06:05] LABS: CALCIUM 9.6 mg/dL (8.5-10.1); CHLORIDE 103 mmol/L (98-107)
[2020-03-06 06:20] LABS: HCT (SEDRATE) 27.5 % (39.2-51.8)
[2020-03-06 06:26] LABS: ALANINE AMINOTRANSFERASE 19 U/L (12-78); ALBUMIN 3.3 g/dL (3.4-5.0); ALKALINE PHOSPHATASE 157 U/L (45-117); ANION GAP 14 mmol/L (5-15); BILIRUBIN,TOTAL 0.8 mg/dL (0.2-1.0); TOTAL IRON BINDING CAPACITY 169 mcg/dL (250-450); TOTAL PROTEIN 8.7 g/dL (6.4-8.2)
[2020-03-06 06:45] LABS: % IRON SATURATION 37 % (20-55); IRON LEVEL 62 mcg/dL (65-175)
[2020-03-06] MEDS: SEVELAMER CARBONATE 800MG TAB PO SCH ×3 (08:00→17:42)
[2020-03-06] MEDS: IBUPROFEN 200 MG TABLET PO PRN ×2 (08:41→17:43)
[2020-03-06] MEDS: ACETAMINOPHEN 325 MG TABLET PO PRN (08:41)
[2020-03-06] MEDS: ASPIRIN 81 MG TABLET EC PO SCH (08:42)
[2020-03-06] MEDS: GABAPENTIN 100 MG CAPSULE PO SCH ×3 (08:42→21:39)
[2020-03-06] MEDS: LACTOBACILLUS CHEW TABLET PO SCH ×3 (08:42→21:37)
[2020-03-06] MEDS: SENNA/DOCUSATE TABLET PO SCH (08:42)
[2020-03-06] MEDS: LACTULOSE 10 GM/15 ML UDC PO SCH ×2 (08:42→21:38)
[2020-03-06] MEDS: PIPERACILLIN/TAZO/PMX 4.5GM 100 ML IV SCH ×2 (12:08→23:24)
[2020-03-06 13:54] VITALS: BP 142/56
[2020-03-06 19:18] VITALS: BP 155/95
[2020-03-06] MEDS ORDERED: LEVOFLOXACIN/PMX 500MG/100ML 100 ML IV SCH (21:00)
[2020-03-06] MEDS: ATORVASTATIN 40 MG TABLET PO SCH (21:38)
[2020-03-06] MEDS: MELATONIN 5 MG TABLET PO PRN (23:24)
[2020-03-07 01:09] VITALS: BP 155/96
[2020-03-07] MEDS: HEPARIN 5,000 UNITS/ML, 1ML SQ SCH (04:00)
[2020-03-07 05:16] LABS: BASOPHILS # (AUTO) 0.06 x10^3/uL (0-0.1); BASOPHILS % (AUTO) 1 % (0-1); EOSINOPHILS # (AUTO) 0.44 x10^3/uL (0-0.4); EOSINOPHILS % (AUTO) 5 % (1-7); LYMPHOCYTES # (AUTO) 1.02 x10^3/uL (1-3.4); LYMPHOCYTES % (AUTO) 12 % (22-44); MD NO; MEAN CORPUSCULAR HEMOGLOBIN 28.6 pg (27.5-34.5); MEAN CORPUSCULAR VOLUME 89.3 fL (81-97); MEAN PLATELET VOLUME 7.5 fL (7.4-10.4); MONOCYTES # (AUTO) 0.91 x10^3/uL (0.2-0.8); MONOCYTES % (AUTO) 10 % (2-9); NEUTROPHILS # (AUTO) 6.28 x10^3/uL (1.8-6.8); NEUTROPHILS % (AUTO) 72 % (42-75); PLATELET COUNT 246 x10^3/uL (130-400); RED BLOOD COUNT 3.03 x10^6/uL (4.38-5.82)
[2020-03-07 05:41] LABS: CHLORIDE 103 mmol/L (98-107)
[2020-03-07 05:51] LABS: ALANINE AMINOTRANSFERASE 16 U/L (12-78); ALKALINE PHOSPHATASE 144 U/L (45-117); ANION GAP 16 mmol/L (5-15); BILIRUBIN,TOTAL 1.1 mg/dL (0.2-1.0); TOTAL PROTEIN 8.4 g/dL (6.4-8.2)
[2020-03-07] MEDS: CARVEDILOL 6.25 MG TABLET PO SCH (06:19)
[2020-03-07] MEDS: GUAIFENESIN 200 MG TABLET PO SCH (06:19)
[2020-03-07] MEDS ORDERED: IBUP-1902 PO (07:44)
[2020-03-07] MEDS ORDERED: AMOX1TAB64 PO (07:44)
[2020-03-07] MEDS: SEVELAMER CARBONATE 800MG TAB PO SCH (08:00)
[2020-03-07] MEDS: LACTOBACILLUS CHEW TABLET PO SCH (08:18)
[2020-03-07] MEDS: GABAPENTIN 100 MG CAPSULE PO SCH (08:18)
[2020-03-07] MEDS: SENNA/DOCUSATE TABLET PO SCH (08:19)
[2020-03-07] MEDS: ASPIRIN 81 MG TABLET EC PO SCH (08:19)
[2020-03-07] MEDS: LACTULOSE 10 GM/15 ML UDC PO SCH (08:19)
[2020-03-07 08:23] VITALS: BP 157/94
== END 2020-03-07 10:02 | disposition home or self-care (01) | DRG 193 ==
LOC: ED 19:21 → EDIP 19:25 → 4NW 20:59
PROVIDERS: ADMIT Family Medicine; ATTEND Family Medicine
DX: J18.9 Pneumonia, unspecified organism (principal); J96.01 Acute respiratory failure with hypoxia; N18.6 End stage renal disease; E44.1 Mild protein-calorie malnutrition; J81.1 Chronic pulmonary edema; I12.0 Hypertensive chronic kidney disease with stage 5 chronic kidney disease or end stage renal disease; Z68.1 Body mass index [BMI] 19.9 or less, adult; N17.9 Acute kidney failure, unspecified; D63.1 Anemia in chronic kidney disease; E11.42 Type 2 diabetes mellitus with diabetic polyneuropathy; E11.22 Type 2 diabetes mellitus with diabetic chronic kidney disease; M19.90 Unspecified osteoarthritis, unspecified site; M10.9 Gout, unspecified; G47.00 Insomnia, unspecified; E78.5 Hyperlipidemia, unspecified; F41.9 Anxiety disorder, unspecified; Z99.2 Dependence on renal dialysis; Z91.19 Patient's noncompliance with other medical treatment and regimen; Z87.891 Personal history of nicotine dependence; Z03.818 Encounter for observation for suspected exposure to other biological agents ruled out
CPT/HCPCS: 36415; 71045; 80053; 82728; 82962; 83540; 83550; 83605; 83615; 83735; 84100; 84145; 84484; 85025; 85651; 86140; 87040; 87635; 93005; 99285; G0378; J1940; J1956; J2405; J2543; J3370; J7060; J0360; J1815; J7050

== ENCOUNTER 2020-03-19 13:11 | Emergency (ER) | payer MEDICAID ==
[~2020-03-19] VITALS: Ht 170.2 cm; Wt 53.7 kg
[~2020-03-19 13:11] MED LIST changes: +AMOX1TAB64 PO; +ASPI-682 PO; +GABA-826 PO; +IBUP-1902 PO
[2020-03-19 13:18] VITALS: BP 144/83
--- NOTE | 2020-03-19 14:31 | NUR ---
TRAFFIC ADMINISTRATOR: PT TO ROOM FROM LOBBY
[2020-03-19 14:56] LABS: BASOPHILS # (AUTO) 0.01 x10^3/uL (0-0.1); BASOPHILS % (AUTO) 0 % (0-1); EOSINOPHILS # (AUTO) 0.29 x10^3/uL (0-0.4); EOSINOPHILS % (AUTO) 3 % (1-7); LYMPHOCYTES # (AUTO) 1.15 x10^3/uL (1-3.4); LYMPHOCYTES % (AUTO) 11 % (22-44); MD NO; MEAN CORPUSCULAR HEMOGLOBIN 29.6 pg (27.5-34.5); MEAN CORPUSCULAR HGB CONC 33.1 g/dL (33.2-36.2); MEAN CORPUSCULAR VOLUME 89.3 fL (81-97); MEAN PLATELET VOLUME 7.2 fL (7.4-10.4); MONOCYTES # (AUTO) 0.84 x10^3/uL (0.2-0.8); MONOCYTES % (AUTO) 8 % (2-9); NEUTROPHILS # (AUTO) 8.03 x10^3/uL (1.8-6.8); NEUTROPHILS % (AUTO) 78 % (42-75); PLATELET COUNT 331 x10^3/uL (130-400); RED BLOOD COUNT 3.55 x10^6/uL (4.38-5.82); RED CELL DISTRIBUTION WIDTH 16.9 % (9.4-14.8)
[2020-03-19] MEDS ORDERED: HYDROcodone/APAP 5/325 TABLET PO ONE (15:00)
[2020-03-19 15:07] LABS: CALCIUM 8.9 mg/dL (8.5-10.1); CHLORIDE 99 mmol/L (98-107)
[2020-03-19] MEDS ORDERED: HYDROcodone/APAP 5/325 TABLET ONE (15:07)
[2020-03-19 15:29] LABS: ANION GAP 15 mmol/L (5-15)
== END 2020-03-19 15:39 | disposition home or self-care (01) ==
LOC: ED 15:34
DX: M1A.9XX1 Chronic gout, unspecified, with tophus (tophi) (principal); I12.9 Hypertensive chronic kidney disease with stage 1 through stage 4 chronic kidney disease, or unspecified chronic kidney disease; E11.22 Type 2 diabetes mellitus with diabetic chronic kidney disease; N18.4 Chronic kidney disease, stage 4 (severe); G89.29 Other chronic pain; M13.0 Polyarthritis, unspecified; Z99.2 Dependence on renal dialysis
CPT/HCPCS: 36415; 80048; 82040; 84550; 85025; 99284

== ENCOUNTER 2020-04-03 19:12 | Inpatient (IN) | payer MEDICAID ==
[~2020-04-03] VITALS: Ht 170.2 cm; Wt 56.0 kg
--- NOTE | 2020-04-03 19:30 | NUR ---
PT BIB [facility] FOR CHEST PAIN AND SOB X 3 DAYS. PT HAS DIALYSIS MWF. PT MISSED DIALYSIS YESTERDAY. PT HAD PNA 1 MONTH AGO. FEELS SAME. VSS. LAB AT BEDSIDE
[2020-04-03 20:00] LABS: MEAN CORPUSCULAR HEMOGLOBIN 29.9 pg (27.5-34.5); MEAN CORPUSCULAR VOLUME 90.7 fL (81-97); MEAN PLATELET VOLUME 7.7 fL (7.4-10.4); PLATELET COUNT 229 x10^3/uL (130-400); RED BLOOD COUNT 1.84 x10^6/uL (4.38-5.82); RED CELL DISTRIBUTION WIDTH 19.5 % (9.4-14.8)
[2020-04-03 20:05] LABS: ALANINE AMINOTRANSFERASE 14 U/L (12-78); ALBUMIN 3.4 g/dL (3.4-5.0); ANION GAP 18 mmol/L (5-15); CALCIUM 8.4 mg/dL (8.5-10.1); CHLORIDE 93 mmol/L (98-107)
[2020-04-03 20:10] LABS: ALKALINE PHOSPHATASE 180 U/L (45-117); BILIRUBIN,TOTAL 1.5 mg/dL (0.2-1.0); TOTAL PROTEIN 7.7 g/dL (6.4-8.2); TROPONIN I 0.066 ng/mL (0.000-0.045)
--- NOTE | 2020-04-03 20:17 | NUR ---
ATTEMPTED TO PLACE PIV WITH NO SUCCESS. HAMMAD DONALD WILL ATTEMPT.
[2020-04-03 20:19] LABS: BASOPHILS # (AUTO) 0.03 x10^3/uL (0-0.1); BASOPHILS % (AUTO) 0 % (0-1); EOSINOPHILS # (AUTO) 0.27 x10^3/uL (0-0.4); EOSINOPHILS % (AUTO) 3 % (1-7); LYMPHOCYTES # (AUTO) 1.16 x10^3/uL (1-3.4); LYMPHOCYTES % (AUTO) 11 % (22-44); MD SCAN; MONOCYTES # (AUTO) 0.74 x10^3/uL (0.2-0.8); MONOCYTES % (AUTO) 7 % (2-9); NEUTROPHILS # (AUTO) 8.28 x10^3/uL (1.8-6.8); NEUTROPHILS % (AUTO) 79 % (42-75)
[2020-04-03] MEDS ORDERED: PANTOPRAZOLE 40 MG IV ONE (20:21)
--- NOTE | 2020-04-03 20:21 | NUR ---
TASK RN: IV INITIATED. PT. DENIES NEEDS AT THIS TIME.
[2020-04-03] MEDS ORDERED: PANTOPRAZOLE 40 MG IV IVPush ONE (20:30)
--- NOTE | 2020-04-03 20:31 | NUR ---
PT MEDICATED WITH PROTONIX. WAITING FOR LABS SO BLOOD CAN BE STARTED. VSS. PT HAS NO NEEDS AT THIS TIME. CALL LIGHT IN REACH
[2020-04-03 20:46] LABS: INTERNATIONAL NORMALIZED RATIO 1.04 (0.93-1.1); PROTHROMBIN TIME 10.7 Seconds (9.6-11.5)
[2020-04-03] MEDS ORDERED: SODIUM CHLORIDE FLUSH 10ML SYR IVF PRN (21:00)
--- NOTE | 2020-04-03 21:09 | NUR ---
CONSENT SIGNED FOR BLOOD TRANSFUSION. ALL QUESTIONS ANSWERED. VSS. PT HAS NO NEEDS AT THIS TIME. CALL LIGHT IN REACH
[2020-04-03] MEDS ORDERED: ACETAMINOPHEN 325 MG TABLET PO PRN (21:30)
[2020-04-03] MEDS ORDERED: ONDANSETRON ODT 4 MG PO PRN (21:30)
[2020-04-03] MEDS: PANTOPRAZOLE 80 MG in SODIUM CHLORIDE 0.9% 100 ML IV SCH (21:30)
[2020-04-03] MEDS ORDERED: BISACODYL 10 MG SUPP PR PRN (21:30)
[2020-04-03] MEDS: SODIUM CHLORIDE FLUSH 10ML SYR IVF SCH (21:30)
[2020-04-03] MEDS ORDERED: POLYETHYLENE GLYCOL 17 GM PACKET PO PRN (21:30)
[2020-04-03 22:02] VITALS: BP 117/74
--- NOTE | 2020-04-03 22:11 | NUR ---
BOBBI RN: BLOOD STARTED, VERIFIED WITH NURSE WILLIAMS. PT ON ALL MONITORING EQUIPMENT. NSR ON THE MONITOR, NO ECTOPY OR ST CHANGES PRESENT. ALL VITALS STABLE. DIFFICULTY OBTAINING SECOND IV ACCESS. WILL ATTEMPT WITH ULTRASOUND
[2020-04-03 22:13] VITALS: BP 124/79
--- NOTE | 2020-04-03 23:29 | NUR ---
FIRST UNIT FINISHED. PT BEING TRANSPORTED
[2020-04-03 23:30] VITALS: BP 125/69
[2020-04-04] VITALS (7 sets, daily range): BP systolic 116–135; BP diastolic 65–76
[2020-04-04] MEDS: GABAPENTIN 100 MG CAPSULE PO SCH ×4 (00:02→20:04)
[2020-04-04] MEDS: SEVELAMER CARBONATE 800MG TAB PO SCH ×4 (00:02→20:03)
[2020-04-04] MEDS: ATORVASTATIN 40 MG TABLET PO SCH ×2 (00:02→20:03)
[2020-04-04 02:39] LABS: TROPONIN I 0.236 ng/mL (0.000-0.045)
[2020-04-04 04:45] LABS: BASOPHILS # (AUTO) 0.03 x10^3/uL (0-0.1); BASOPHILS % (AUTO) 0 % (0-1); EOSINOPHILS # (AUTO) 0.26 x10^3/uL (0-0.4); EOSINOPHILS % (AUTO) 3 % (1-7); LYMPHOCYTES # (AUTO) 1.74 x10^3/uL (1-3.4); LYMPHOCYTES % (AUTO) 20 % (22-44); MD NO; MEAN CORPUSCULAR HEMOGLOBIN 29.3 pg (27.5-34.5); MEAN CORPUSCULAR HGB CONC 32.9 g/dL (33.2-36.2); MEAN CORPUSCULAR VOLUME 88.9 fL (81-97); MEAN PLATELET VOLUME 7.4 fL (7.4-10.4); MONOCYTES # (AUTO) 0.63 x10^3/uL (0.2-0.8); MONOCYTES % (AUTO) 7 % (2-9); NEUTROPHILS # (AUTO) 6.03 x10^3/uL (1.8-6.8); NEUTROPHILS % (AUTO) 69 % (42-75); PLATELET COUNT 219 x10^3/uL (130-400); RED BLOOD COUNT 2.77 x10^6/uL (4.38-5.82); RED CELL DISTRIBUTION WIDTH 18.1 % (9.4-14.8)
[2020-04-04 04:54] LABS: ANION GAP 12 mmol/L (5-15); CALCIUM 9.2 mg/dL (8.5-10.1); CHLORIDE 97 mmol/L (98-107)
[2020-04-04 04:56] LABS: CREATININE 8.35 mg/dL (0.7-1.3)
[2020-04-04] MEDS: CARVEDILOL 6.25 MG TABLET PO SCH ×2 (06:00→20:03)
[2020-04-04] MEDS: AMLODIPINE 10 MG TAB PO SCH (09:04)
[2020-04-04] MEDS: SODIUM CHLORIDE FLUSH 10ML SYR IVF SCH ×2 (09:05→20:04)
[2020-04-04] MEDS: SENNA/DOCUSATE TABLET PO SCH (09:05)
[2020-04-04] MEDS: SUCROFERRIC OXYHYDROXIDE 500 MG HOMEMEDPO SCH ×3 (09:06→17:00)
[2020-04-04] MEDS: PANTOPRAZOLE 80 MG in SODIUM CHLORIDE 0.9% 100 ML IV SCH ×2 (09:08→19:30)
[2020-04-04] MEDS ORDERED: CHLORHEXIDINE 15 ML UDC ONE (11:13)
[2020-04-04] MEDS ORDERED: PROPOFOL 10 MG/ML, 20ML ONE (11:20)
[2020-04-04 13:33] LABS: CALCIUM 9.1 mg/dL (8.5-10.1)
[2020-04-05 01:14] VITALS: BP 115/74
[2020-04-05 05:30] LABS: BASOPHILS # (AUTO) 0.03 x10^3/uL (0-0.1); BASOPHILS % (AUTO) 0 % (0-1); EOSINOPHILS # (AUTO) 0.38 x10^3/uL (0-0.4); EOSINOPHILS % (AUTO) 5 % (1-7); LYMPHOCYTES # (AUTO) 1.47 x10^3/uL (1-3.4); LYMPHOCYTES % (AUTO) 20 % (22-44); MD NO; MEAN CORPUSCULAR HGB CONC 32.7 g/dL (33.2-36.2); MEAN CORPUSCULAR VOLUME 88.6 fL (81-97); MEAN PLATELET VOLUME 7.6 fL (7.4-10.4); MONOCYTES # (AUTO) 0.79 x10^3/uL (0.2-0.8); MONOCYTES % (AUTO) 11 % (2-9); NEUTROPHILS # (AUTO) 4.64 x10^3/uL (1.8-6.8); NEUTROPHILS % (AUTO) 64 % (42-75); PLATELET COUNT 286 x10^3/uL (130-400); RED CELL DISTRIBUTION WIDTH 18.6 % (9.4-14.8)
[2020-04-05] MEDS: PANTOPRAZOLE 80 MG in SODIUM CHLORIDE 0.9% 100 ML IV SCH (05:30)
[2020-04-05 05:33] LABS: ALANINE AMINOTRANSFERASE 20 U/L (12-78); CHLORIDE 98 mmol/L (98-107); CREATININE 7.37 mg/dL (0.7-1.3)
[2020-04-05 05:43] LABS: % IRON SATURATION 21 % (20-55); ALBUMIN 3.2 g/dL (3.4-5.0); ALKALINE PHOSPHATASE 148 U/L (45-117); ANION GAP 11 mmol/L (5-15); BILIRUBIN,TOTAL 0.8 mg/dL (0.2-1.0); CALCIUM 8.4 mg/dL (8.5-10.1); IRON LEVEL 31 mcg/dL (65-175); TOTAL IRON BINDING CAPACITY 146 mcg/dL (250-450); TOTAL PROTEIN 7.9 g/dL (6.4-8.2)
[2020-04-05] MEDS: CARVEDILOL 6.25 MG TABLET PO SCH ×2 (06:00→18:30)
[2020-04-05] MEDS: SUCROFERRIC OXYHYDROXIDE 500 MG HOMEMEDPO SCH ×3 (07:52→17:13)
[2020-04-05 08:19] VITALS: BP 111/69
[2020-04-05] MEDS: SENNA/DOCUSATE TABLET PO SCH (09:00)
[2020-04-05] MEDS: AMLODIPINE 10 MG TAB PO SCH (09:01)
[2020-04-05] MEDS: SEVELAMER CARBONATE 800MG TAB PO SCH ×3 (09:01→17:12)
[2020-04-05] MEDS: GABAPENTIN 100 MG CAPSULE PO SCH ×3 (09:01→20:31)
[2020-04-05] MEDS: SODIUM CHLORIDE FLUSH 10ML SYR IVF SCH ×2 (09:02→20:31)
[2020-04-05 13:07] VITALS: BP 102/65
[2020-04-05] MEDS ORDERED: ALLO100T30 PO (13:13)
[2020-04-05] MEDS: OMEPRAZOLE 20 MG CAPSULE.DR PO SCH (17:12)
[2020-04-05 20:01] VITALS: BP 110/69
[2020-04-05] MEDS: ATORVASTATIN 40 MG TABLET PO SCH (20:31)
[2020-04-06 01:16] VITALS: BP 118/75
[2020-04-06] MEDS: CARVEDILOL 6.25 MG TABLET PO SCH (05:32)
[2020-04-06] MEDS: OMEPRAZOLE 20 MG CAPSULE.DR PO SCH (05:33)
[2020-04-06 06:24] LABS: BASOPHILS # (AUTO) 0.06 x10^3/uL (0-0.1); BASOPHILS % (AUTO) 1 % (0-1); EOSINOPHILS # (AUTO) 0.41 x10^3/uL (0-0.4); EOSINOPHILS % (AUTO) 4 % (1-7); LYMPHOCYTES % (AUTO) 18 % (22-44); MD NO; MEAN CORPUSCULAR HEMOGLOBIN 29.2 pg (27.5-34.5); MEAN CORPUSCULAR VOLUME 88.6 fL (81-97); MEAN PLATELET VOLUME 7.8 fL (7.4-10.4); MONOCYTES # (AUTO) 0.89 x10^3/uL (0.2-0.8); MONOCYTES % (AUTO) 9 % (2-9); NEUTROPHILS # (AUTO) 7.09 x10^3/uL (1.8-6.8); NEUTROPHILS % (AUTO) 69 % (42-75); PLATELET COUNT 328 x10^3/uL (130-400); RED BLOOD COUNT 3.24 x10^6/uL (4.38-5.82); RED CELL DISTRIBUTION WIDTH 16.7 % (9.4-14.8)
[2020-04-06 06:26] LABS: CHLORIDE 98 mmol/L (98-107)
[2020-04-06 06:32] LABS: ALANINE AMINOTRANSFERASE 16 U/L (12-78); ALBUMIN 3.3 g/dL (3.4-5.0); ALKALINE PHOSPHATASE 160 U/L (45-117); ANION GAP 13 mmol/L (5-15); BILIRUBIN,TOTAL 0.6 mg/dL (0.2-1.0); CALCIUM 8.8 mg/dL (8.5-10.1)
[2020-04-06 07:39] VITALS: BP 120/74
[2020-04-06] MEDS: SUCROFERRIC OXYHYDROXIDE 500 MG HOMEMEDPO SCH ×2 (08:00→12:00)
[2020-04-06] MEDS: AMLODIPINE 10 MG TAB PO SCH ×2 (08:32→13:05)
[2020-04-06] MEDS: SEVELAMER CARBONATE 800MG TAB PO SCH ×2 (08:32→13:19)
[2020-04-06] MEDS: GABAPENTIN 100 MG CAPSULE PO SCH (08:32)
[2020-04-06] MEDS: SENNA/DOCUSATE TABLET PO SCH (09:00)
[2020-04-06] MEDS ORDERED: OMEP-110 PO (10:08)
[2020-04-06 12:28] VITALS: BP 98/65
[2020-04-06] MEDS: SODIUM CHLORIDE FLUSH 10ML SYR IVF SCH (13:04)
[2020-04-06] MEDS ORDERED: TRAM50TA2 PO (14:21)
== END 2020-04-06 14:31 | disposition home or self-care (01) | DRG 698 ==
LOC: EDUNIT# 19:12 → ED 20:18 → EDIP 21:24 → 4WST 23:34 → DCLOUNGE 04-06 14:14
PROVIDERS: ADMIT Internal Medicine; ATTEND Internal Medicine
PROC: 30233N1 Transfusion of Nonautologous Red Blood Cells into Peripheral Vein, Percutaneous Approach (ICD-10-PCS; 2020-04-03)
PROC: 0DB68ZX Excision of Stomach, Via Natural or Artificial Opening Endoscopic, Diagnostic (ICD-10-PCS; principal; 2020-04-04 10:30)
DX: E11.22 Type 2 diabetes mellitus with diabetic chronic kidney disease (principal); K25.4 Chronic or unspecified gastric ulcer with hemorrhage; I12.0 Hypertensive chronic kidney disease with stage 5 chronic kidney disease or end stage renal disease; N17.9 Acute kidney failure, unspecified; E11.42 Type 2 diabetes mellitus with diabetic polyneuropathy; E78.5 Hyperlipidemia, unspecified; E87.5 Hyperkalemia; F41.9 Anxiety disorder, unspecified; M10.9 Gout, unspecified; N18.6 End stage renal disease; T39.395A Adverse effect of other nonsteroidal anti-inflammatory drugs [NSAID], initial encounter; Z91.19 Patient's noncompliance with other medical treatment and regimen; Z99.2 Dependence on renal dialysis; N25.0 Renal osteodystrophy; Z20.828 Contact with and (suspected) exposure to other viral communicable diseases; D50.0 Iron deficiency anemia secondary to blood loss (chronic)
CPT/HCPCS: 36415; 71045; 80048; 80053; 82306; 82310; 82728; 83540; 83550; 83735; 83880; 83970; 84100; 84484; 85014; 85018; 85025; 85610; 85730; 86850; 86900; 86923; 87635; 88305; 90935; 93005; G0378; J2704; C9113; P9016

== ENCOUNTER 2020-05-07 16:04 | Inpatient (IN) | payer MEDICAID ==
[~2020-05-07] VITALS: Ht 170.2 cm; Wt 56.8 kg
[~2020-05-07 16:04] MED LIST changes: +ASPI-1027 PO; -ASPI-682 PO; +TRAM50TA2 PO
--- NOTE | 2020-05-07 16:16 | NUR ---
PT MISSED DIALYSIS TODAY SAYS WAS TOO TIRED TO GO. NOW C/O ITCHING SKIN AND FEELING LIKE K IS HIGH. NO COUGH, NO FEVER, REPORTS FEELING TIRED AND CHILLS. PT WITH TYLER PEARCE, POS BRUIT. ON MONITOR NSR NO ECTOPY. CALL LIGHT IN REACH, SIDE RAILS UP AIDET PROVIDED. WILL CONTINUE TO MONITOR.
[2020-05-07 16:39] LABS: BASOPHILS # (AUTO) 0.03 x10^3/uL (0-0.1); BASOPHILS % (AUTO) 0 % (0-1); EOSINOPHILS # (AUTO) 0.34 x10^3/uL (0-0.4); EOSINOPHILS % (AUTO) 3 % (1-7); LYMPHOCYTES # (AUTO) 1.36 x10^3/uL (1-3.4); LYMPHOCYTES % (AUTO) 13 % (22-44); MD NO; MEAN CORPUSCULAR HEMOGLOBIN 28.8 pg (27.5-34.5); MEAN CORPUSCULAR HGB CONC 32.8 g/dL (33.2-36.2); MEAN PLATELET VOLUME 7.4 fL (7.4-10.4); MONOCYTES # (AUTO) 0.64 x10^3/uL (0.2-0.8); MONOCYTES % (AUTO) 6 % (2-9); NEUTROPHILS # (AUTO) 7.85 x10^3/uL (1.8-6.8); NEUTROPHILS % (AUTO) 77 % (42-75); PLATELET COUNT 285 x10^3/uL (130-400); RED BLOOD COUNT 3.72 x10^6/uL (4.38-5.82); RED CELL DISTRIBUTION WIDTH 17.4 % (9.4-14.8)
[2020-05-07 16:50] LABS: ALANINE AMINOTRANSFERASE 20 U/L (12-78); ALBUMIN 3.7 g/dL (3.4-5.0); ANION GAP 18 mmol/L (5-15); CALCIUM 8.9 mg/dL (8.5-10.1); CHLORIDE 91 mmol/L (98-107)
[2020-05-07 16:54] LABS: ALKALINE PHOSPHATASE 182 U/L (45-117); BILIRUBIN,TOTAL 1.9 mg/dL (0.2-1.0); TROPONIN I < 0.015 ng/mL (0.000-0.045)
[2020-05-07] MEDS ORDERED: SODIUM CHLORIDE FLUSH 10ML SYR IVF ONE (17:00)
[2020-05-07] MEDS ORDERED: INSULIN REGULAR 100 UNITS/ML, 3ML VIAL IVPush ONE (17:00)
[2020-05-07] MEDS ORDERED: DEXTROSE 50%, 50ML VIAL IVPush ONE (17:00)
[2020-05-07] MEDS ORDERED: CALCIUM CHLORIDE 10%, 10ML SYR IVPush ONE (17:00)
[2020-05-07] MEDS ORDERED: DEXTROSE 50%, 50ML SYRINGE ONE ×2 (17:17→18:26)
[2020-05-07] MEDS ORDERED: INSULIN LISPRO SINGLE DOSE, ER SQ-INSULIN ONE (17:17)
[2020-05-07] MEDS ORDERED: CALCIUM CHLORIDE 10%, 10ML SYR ONE (17:17)
--- NOTE | 2020-05-07 17:33 | NUR ---
MEDICATED PER ORDER, VERY SLOW ADMIN DILUTED OUT. ON MONITOR, NO ECTOPY. VSS. AWAITING ADMISSION.
--- NOTE | 2020-05-07 17:52 | NUR ---
PT AWAITING FOR ADMISSION. NO CHANGE IN ASSESSMENT. WILL CONTINUE TO MONITOR.
--- NOTE | 2020-05-07 18:16 | NUR ---
REPORT TO RM 420 ODILON CHASE. PT READY FOR TRANSPORT.
--- NOTE | 2020-05-07 18:29 | NUR ---
35, MD AWARE 1/2 AMP D50 GIVN AND 2 JUICES.
--- NOTE | 2020-05-07 18:35 | NUR ---
REPEAT BG 108, TX TO FLOOR
[2020-05-07 18:47] VITALS: BP 204/104
[2020-05-07] MEDS ORDERED: AMLODIPINE 10 MG TAB ONE (19:19)
[2020-05-07] MEDS: CARVEDILOL 6.25 MG TABLET PO SCH (19:22)
[2020-05-07] MEDS: SODIUM CHLORIDE FLUSH 10ML SYR IVF SCH (19:22)
[2020-05-07] MEDS ORDERED: GLUCAGON 1 MG IM PRN ×2 (19:30→21:00)
[2020-05-07] MEDS ORDERED: DEXTROSE 4 GM TAB.CHEW PO PRN ×2 (19:30→21:00)
[2020-05-07] MEDS ORDERED: AMLODIPINE 10 MG TAB PO SCH (19:30)
[2020-05-07] MEDS ORDERED: DEXTROSE 50%, 50ML SYRINGE IVPush PRN ×2 (19:30→21:00)
[2020-05-07] MEDS ORDERED: DOCUSATE 100 MG CAPSULE PO PRN (20:30)
[2020-05-07] MEDS ORDERED: CARVEDILOL 6.25 MG TABLET PO SCH (20:30)
[2020-05-07] MEDS ORDERED: ONDANSETRON 2MG/ML, 2ML IVPush PRN (20:30)
[2020-05-07] MEDS ORDERED: LIDODERM 5% PATCH TD PRN (20:30)
[2020-05-07] MEDS ORDERED: MELATONIN 5 MG TABLET PO PRN (20:30)
[2020-05-07] MEDS ORDERED: SODIUM CHLORIDE FLUSH 10ML SYR IVF SCH (21:00)
[2020-05-07] MEDS: LACTOBACILLUS CHEW TABLET PO SCH (21:24)
[2020-05-07] MEDS: ATORVASTATIN 40 MG TABLET PO SCH (21:24)
[2020-05-07 23:34] VITALS: BP 165/92
[2020-05-08 00:47] VITALS: BP 157/86
[2020-05-08 05:02] VITALS: BP 136/79
[2020-05-08] MEDS: CARVEDILOL 6.25 MG TABLET PO SCH ×2 (05:03→17:13)
[2020-05-08 06:00] LABS: BASOPHILS # (AUTO) 0.06 x10^3/uL (0-0.1); BASOPHILS % (AUTO) 1 % (0-1); EOSINOPHILS # (AUTO) 0.25 x10^3/uL (0-0.4); EOSINOPHILS % (AUTO) 3 % (1-7); LYMPHOCYTES # (AUTO) 1.66 x10^3/uL (1-3.4); LYMPHOCYTES % (AUTO) 17 % (22-44); MD NO; MEAN CORPUSCULAR HGB CONC 31.4 g/dL (33.2-36.2); MEAN PLATELET VOLUME 7.2 fL (7.4-10.4); MONOCYTES # (AUTO) 0.69 x10^3/uL (0.2-0.8); MONOCYTES % (AUTO) 7 % (2-9); NEUTROPHILS # (AUTO) 7.29 x10^3/uL (1.8-6.8); NEUTROPHILS % (AUTO) 73 % (42-75); PLATELET COUNT 292 x10^3/uL (130-400); RED BLOOD COUNT 3.67 x10^6/uL (4.38-5.82); RED CELL DISTRIBUTION WIDTH 17.1 % (9.4-14.8)
[2020-05-08] MEDS: ACETAMINOPHEN 325 MG TABLET PO PRN (06:04)
[2020-05-08 06:13] LABS: CHLORIDE 93 mmol/L (98-107)
[2020-05-08 06:30] VITALS: BP 135/69
[2020-05-08 06:32] LABS: ANION GAP 11 mmol/L (5-15); CALCIUM 9.1 mg/dL (8.5-10.1); CREATININE 7.61 mg/dL (0.7-1.3)
[2020-05-08] MEDS ORDERED: AMLODIPINE 10 MG TAB PO SCH (09:00)
[2020-05-08] MEDS: LACTOBACILLUS CHEW TABLET PO SCH ×3 (09:01→22:11)
[2020-05-08] MEDS: ASPIRIN 81 MG TABLET EC PO SCH (09:01)
[2020-05-08] MEDS: SEVELAMER CARBONATE 800MG TAB PO SCH ×3 (09:01→17:12)
[2020-05-08] MEDS: AMLODIPINE 10 MG TAB PO SCH (09:01)
[2020-05-08] MEDS: SODIUM CHLORIDE FLUSH 10ML SYR IVF SCH ×2 (09:02→22:11)
[2020-05-08 12:15] VITALS: BP 118/73
[2020-05-08 19:02] VITALS: BP 135/74
[2020-05-08] MEDS: ATORVASTATIN 40 MG TABLET PO SCH (22:11)
[2020-05-09 01:20] VITALS: BP 129/81
[2020-05-09] MEDS: CARVEDILOL 6.25 MG TABLET PO SCH ×2 (05:50→17:51)
[2020-05-09 06:25] LABS: BASOPHILS # (AUTO) 0.04 x10^3/uL (0-0.1); BASOPHILS % (AUTO) 0 % (0-1); EOSINOPHILS # (AUTO) 0.24 x10^3/uL (0-0.4); EOSINOPHILS % (AUTO) 3 % (1-7); LYMPHOCYTES # (AUTO) 2.02 x10^3/uL (1-3.4); LYMPHOCYTES % (AUTO) 24 % (22-44); MD NO; MEAN CORPUSCULAR HEMOGLOBIN 28.3 pg (27.5-34.5); MEAN CORPUSCULAR HGB CONC 32.1 g/dL (33.2-36.2); MEAN PLATELET VOLUME 7.2 fL (7.4-10.4); MONOCYTES # (AUTO) 0.72 x10^3/uL (0.2-0.8); MONOCYTES % (AUTO) 8 % (2-9); NEUTROPHILS # (AUTO) 5.53 x10^3/uL (1.8-6.8); NEUTROPHILS % (AUTO) 65 % (42-75); PLATELET COUNT 290 x10^3/uL (130-400)
[2020-05-09 06:26] VITALS: BP 114/58
[2020-05-09 06:47] LABS: ALBUMIN 3.3 g/dL (3.4-5.0); ANION GAP 14 mmol/L (5-15); CALCIUM 8.7 mg/dL (8.5-10.1); CHLORIDE 93 mmol/L (98-107)
[2020-05-09 07:00] LABS: ALANINE AMINOTRANSFERASE 16 U/L (12-78); ALKALINE PHOSPHATASE 168 U/L (45-117); TOTAL PROTEIN 8.6 g/dL (6.4-8.2)
[2020-05-09] MEDS ORDERED: SODIUM POLYSTYRENE SULFONATE ORAL SUSP PO ONE (07:00)
[2020-05-09] MEDS: SEVELAMER CARBONATE 800MG TAB PO SCH ×3 (08:00→17:51)
[2020-05-09] MEDS: AMLODIPINE 10 MG TAB PO SCH (08:32)
[2020-05-09] MEDS: SODIUM CHLORIDE FLUSH 10ML SYR IVF SCH ×2 (09:00→20:43)
[2020-05-09] MEDS: LACTOBACILLUS CHEW TABLET PO SCH ×3 (10:45→20:43)
[2020-05-09] MEDS: ASPIRIN 81 MG TABLET EC PO SCH (10:45)
[2020-05-09 12:57] VITALS: BP 118/73
[2020-05-09 14:10] LABS: ANION GAP 10 mmol/L (5-15); CALCIUM 10.1 mg/dL (8.5-10.1); CHLORIDE 95 mmol/L (98-107)
[2020-05-09 14:11] LABS: CREATININE 4.98 mg/dL (0.7-1.3)
[2020-05-09] MEDS: ACETAMINOPHEN 325 MG TABLET PO PRN (18:10)
[2020-05-09 20:09] VITALS: BP 159/92
[2020-05-09] MEDS: ATORVASTATIN 40 MG TABLET PO SCH (20:43)
[2020-05-10 00:54] VITALS: BP 118/72
[2020-05-10] MEDS: CARVEDILOL 6.25 MG TABLET PO SCH (05:59)
[2020-05-10 06:24] LABS: ANION GAP 12 mmol/L (5-15); CALCIUM 9.4 mg/dL (8.5-10.1); CHLORIDE 95 mmol/L (98-107)
[2020-05-10] MEDS ORDERED: SODIUM POLYSTYRENE SULFONATE ORAL SUSP PO ONE (08:00)
[2020-05-10 08:25] VITALS: BP 107/71
[2020-05-10] MEDS ORDERED: TAMS-11 PO (10:19)
[2020-05-10] MEDS ORDERED: SUCR500T PO (10:19)
[2020-05-10] MEDS ORDERED: CARV6.2512 PO (10:19)
[2020-05-10] MEDS ORDERED: ASPI-515 PO (10:19)
[2020-05-10] MEDS ORDERED: SENN1TAB94 PO (10:19)
[2020-05-10] MEDS ORDERED: GABA-826 PO (10:19)
[2020-05-10] MEDS ORDERED: ATOR40TA78 PO (10:19)
[2020-05-10] MEDS ORDERED: AMLO10TA8 PO (10:19)
[2020-05-10] MEDS ORDERED: SEVE800T8 PO (10:19)
[2020-05-10] MEDS: ASPIRIN 81 MG TABLET EC PO SCH (10:29)
[2020-05-10] MEDS: SEVELAMER CARBONATE 800MG TAB PO SCH ×2 (10:29→12:00)
[2020-05-10] MEDS: LACTOBACILLUS CHEW TABLET PO SCH (10:29)
[2020-05-10] MEDS: AMLODIPINE 10 MG TAB PO SCH (10:30)
[2020-05-10] MEDS ORDERED: COLCHICINE 0.6 MG CAPSULE PO ONE (10:30)
[2020-05-10] MEDS: SODIUM CHLORIDE FLUSH 10ML SYR IVF SCH (10:30)
[2020-05-10 14:00] VITALS: BP 106/70
== END 2020-05-10 15:02 | disposition home or self-care (01) | DRG 640 ==
LOC: ED 17:28 → EDIP 17:29 → ED 17:34 → 4WST 18:42 → DCLOUNGE 05-10 14:49
PROVIDERS: ADMIT Internal Medicine; ATTEND Internal Medicine
DX: E87.5 Hyperkalemia (principal); N18.6 End stage renal disease; I12.0 Hypertensive chronic kidney disease with stage 5 chronic kidney disease or end stage renal disease; M10.9 Gout, unspecified; E11.42 Type 2 diabetes mellitus with diabetic polyneuropathy; E11.22 Type 2 diabetes mellitus with diabetic chronic kidney disease; E11.649 Type 2 diabetes mellitus with hypoglycemia without coma; D63.8 Anemia in other chronic diseases classified elsewhere; I16.0 Hypertensive urgency; E78.5 Hyperlipidemia, unspecified; N25.0 Renal osteodystrophy; E87.1 Hypo-osmolality and hyponatremia; Z91.14 Patient's other noncompliance with medication regimen
CPT/HCPCS: 36415; 71045; 80048; 80053; 82962; 83735; 84100; 84443; 84484; 85025; 90935; 93005; 96374; G0378

== ENCOUNTER 2020-07-08 14:21 | Emergency (ER) | payer MEDICAID ==
[~2020-07-08] VITALS: Ht 170.2 cm; Wt 55.1 kg
[~2020-07-08 14:21] MED LIST changes: +AMLO-211 PO; -AMLO10TA8 PO; +SENN1TAB94 PO; +TAMS-11 PO
--- NOTE | 2020-07-08 15:11 | NUR ---
THIS IS A 50 YO MALE COMING IN WITH C/O BILATERAL FEET AND HAND PAIN. PT REPORTS HE HAS GOUT AND HE NEEDS A REFILL ON HIS MEDICATION. PT ALSO REPORTS FATIGUE AND A COUGH, PT ALSO REPORTS HE MISSED DIALYSIS THURSDAY. PATIENT IS A&OX4, ALL MONITORING IN PLACE, NSR ON RN RECRUITMENT. BP ELEVATED AT 210/111. EKG DONE IN TRIAGE. DENIES NEEDS AT THIS TIME, CALL LIGHT IN REACH
--- NOTE | 2020-07-08 15:48 | NUR ---
ERP TO ROOM FOR EVAL
--- NOTE | 2020-07-08 16:41 | NUR ---
BP 205/91, ERP AWARE
[2020-07-08 16:46] LABS: BASOPHILS % (AUTO) 1 % (0-1); EOSINOPHILS % (AUTO) 2 % (1-7); LYMPHOCYTES % (AUTO) 15 % (22-44); MEAN CORPUSCULAR HEMOGLOBIN 28.3 pg (27.5-34.5); MEAN CORPUSCULAR HGB CONC 33.2 g/dL (33.2-36.2); MEAN PLATELET VOLUME 7.4 fL (7.4-10.4); MONOCYTES % (AUTO) 7 % (2-9); NEUTROPHILS % (AUTO) 75 % (42-75); PLATELET COUNT 273 x10^3/uL (130-400); RED BLOOD COUNT 4.07 x10^6/uL (4.38-5.82)
[2020-07-08 16:54] LABS: MD NO
[2020-07-08 16:55] LABS: ALANINE AMINOTRANSFERASE 21 U/L (12-78); ALBUMIN 3.7 g/dL (3.4-5.0); ANION GAP 13 mmol/L (5-15); CALCIUM 10.1 mg/dL (8.5-10.1); CHLORIDE 98 mmol/L (98-107)
[2020-07-08 16:59] LABS: ALKALINE PHOSPHATASE 238 U/L (45-117); BILIRUBIN,TOTAL 0.8 mg/dL (0.2-1.0); TOTAL PROTEIN 9.3 g/dL (6.4-8.2)
--- NOTE | 2020-07-08 17:07 | NUR ---
ALL RESULTS BACK, PATIENT UP FOR RECHECK
[2020-07-08 17:46] VITALS: BP 204/107
--- NOTE | 2020-07-08 17:46 | NUR ---
MD RANJAN AWARE OF BP UPON DISCHARGE, NO CONCERNS FROM ERP.
--- NOTE | 2020-07-08 17:53 | NUR ---
Patient given discharge instructions and they have confirmed that they understand the instructions. Patient ambulatory with steady gait.
== END 2020-07-08 17:57 | disposition home or self-care (01) ==
LOC: ED 15:20
DX: I12.0 Hypertensive chronic kidney disease with stage 5 chronic kidney disease or end stage renal disease (principal); E11.22 Type 2 diabetes mellitus with diabetic chronic kidney disease; N18.6 End stage renal disease; E87.5 Hyperkalemia; I44.4 Left anterior fascicular block; R07.9 Chest pain, unspecified; Z72.9 Problem related to lifestyle, unspecified; Z99.2 Dependence on renal dialysis
CPT/HCPCS: 36415; 71045; 80053; 83880; 85025; 93005; 99285

== ENCOUNTER 2020-07-16 19:20 | Emergency (ER) | payer MEDICAID ==
[~2020-07-16] VITALS: Ht 170.2 cm; Wt 55.0 kg
[2020-07-16] MEDS ORDERED: NITROGLYCERIN OINT 2%, 1GM TP ONE ×2 (19:35→20:00)
[2020-07-16] MEDS ORDERED: LABETALOL 5MG/ML, 20ML ONE (19:35)
[2020-07-16] MEDS ORDERED: SODIUM CHLORIDE FLUSH 10ML SYR IVF ONE (20:00)
[2020-07-16] MEDS ORDERED: LABETALOL 5MG/ML, 20ML IVPush ONE (20:00)
--- NOTE | 2020-07-16 20:00 | NUR ---
ATTEMPTED IV ACCESS X2. UNABLE TO OBTAIN. SECOND RN IN TO ATTEMPT. NITRO PASTE PLACED. ERP AWARE OF PT STATUS. PT ALSO STATING HE HAS HX OF HIGH AMMONIA LEVELS AND FEELS LIKE IT IS HIGH. ERP AWARE AND ORDERS RECEIVED. PT UNABLE TO SIT STILL AND STATES HE IS HAVING BILAT LEG PAIN--REQUESTING PAIN MEDS. ERP AWARE AND ORDERS RECEIVED. PT NSR ON MONITOR. NO ACUTE DISTRESS NOTED. WILL MEDICATED FOR BP SOON IV ACCESS OBTAINED.
[2020-07-16] MEDS ORDERED: MORPHINE SULFATE 4 MG/ML, 1ML ONE (20:02)
[2020-07-16] MEDS ORDERED: MORPHINE SULFATE 4 MG/ML, 1ML IVPush ONE (20:30)
--- NOTE | 2020-07-16 20:30 | NUR ---
ASSISTED IN PT CARE. IV ACCESS OBTAINED, LABS DRAWN AND SENT.
--- NOTE | 2020-07-16 20:53 | NUR ---
COVID SWAB COLLECTED AND WALKED TO LAB. PT TOLERATED WELL. NO FURTHER NEEDS EXPRESSED.
[2020-07-16 20:54] LABS: ALANINE AMINOTRANSFERASE 42 U/L (12-78); ALBUMIN 3.7 g/dL (3.4-5.0); ANION GAP 10 mmol/L (5-15); CALCIUM 9.9 mg/dL (8.5-10.1); CHLORIDE 93 mmol/L (98-107)
[2020-07-16 21:00] LABS: ALKALINE PHOSPHATASE 225 U/L (45-117); BILIRUBIN,TOTAL 0.7 mg/dL (0.2-1.0); CREATININE 9.78 mg/dL (0.7-1.3); TOTAL PROTEIN 9.6 g/dL (6.4-8.2); TROPONIN I 0.016 ng/mL (0.000-0.045)
--- NOTE | 2020-07-16 21:50 | NUR ---
LAB TO ROOM TO REDRAW. PT RESTING IN [facility], NO NEEDS AT THIS TIME
[2020-07-16 21:51] LABS: BASOPHILS % (AUTO) 1 % (0-1); EOSINOPHILS % (AUTO) 2 % (1-7); LYMPHOCYTES % (AUTO) 10 % (22-44); MEAN CORPUSCULAR HEMOGLOBIN 28.8 pg (27.5-34.5); MEAN CORPUSCULAR HGB CONC 33.7 g/dL (33.2-36.2); MEAN PLATELET VOLUME 7.7 fL (7.4-10.4); MONOCYTES % (AUTO) 7 % (2-9); NEUTROPHILS % (AUTO) 80 % (42-75); PLATELET COUNT 260 x10^3/uL (130-400); RED BLOOD COUNT 3.76 x10^6/uL (4.38-5.82); RED CELL DISTRIBUTION WIDTH 17.7 % (9.4-14.8)
[2020-07-16 22:26] LABS: MD SCAN
--- NOTE | 2020-07-16 23:00 | NUR ---
pt resting in room, no needs at this time
[2020-07-17] VITALS: BP 163/85
--- NOTE | 2020-07-17 00:26 | NUR ---
pt ambulatory with steady gait.
== END 2020-07-17 00:37 | disposition home or self-care (01) ==
LOC: EDBD 19:20 → MERGE 19:20 → ED 07-17 00:05
DX: I13.2 Hypertensive heart and chronic kidney disease with heart failure and with stage 5 chronic kidney disease, or end stage renal disease (principal); Z20.828 Contact with and (suspected) exposure to other viral communicable diseases; I50.9 Heart failure, unspecified; N18.6 End stage renal disease; E11.22 Type 2 diabetes mellitus with diabetic chronic kidney disease; J18.9 Pneumonia, unspecified organism; R06.00 Dyspnea, unspecified; M79.10 Myalgia, unspecified site; R05 Cough; R07.89 Other chest pain; R06.02 Shortness of breath; R11.0 Nausea; M10.9 Gout, unspecified; F17.200 Nicotine dependence, unspecified, uncomplicated; Z99.2 Dependence on renal dialysis
CPT/HCPCS: 36415; 71045; 80053; 82140; 83880; 84484; 85025; 87635; 93005; 96372; 96374; 99285; J2270; 96375

== ENCOUNTER 2020-07-22 13:58 | Emergency (ER) | payer MEDICAID ==
[~2020-07-22] VITALS: Ht 170.2 cm; Wt 55.2 kg
--- NOTE | 2020-07-22 14:31 | NUR ---
PT C/O SOB. PT ALSO STATES HE NEEDS A REFILL ON HIS PRESCRIPTIONS AND DIALYSIS TODAY. PT DENIES CP OR ABD PAIN. PT ALSO STATES HE HAD A FEVER AND HYPERTENSION LAST NIGHT.
[2020-07-22 14:34] VITALS: BP 132/78
[2020-07-22 15:44] LABS: BASOPHILS % (AUTO) 0 % (0-1); EOSINOPHILS % (AUTO) 2 % (1-7); LYMPHOCYTES % (AUTO) 11 % (22-44); MEAN CORPUSCULAR HEMOGLOBIN 28.6 pg (27.5-34.5); MEAN CORPUSCULAR HGB CONC 33.4 g/dL (33.2-36.2); MEAN PLATELET VOLUME 7.9 fL (7.4-10.4); MONOCYTES % (AUTO) 10 % (2-9); NEUTROPHILS % (AUTO) 77 % (42-75); PLATELET COUNT 261 x10^3/uL (130-400); RED BLOOD COUNT 3.72 x10^6/uL (4.38-5.82); RED CELL DISTRIBUTION WIDTH 17.7 % (9.4-14.8)
[2020-07-22 15:47] LABS: MD NO
[2020-07-22 15:49] LABS: ALBUMIN 4.2 g/dL (3.4-5.0); ANION GAP 10 mmol/L (5-15); CALCIUM 10.3 mg/dL (8.5-10.1); CHLORIDE 93 mmol/L (98-107)
[2020-07-22] MEDS ORDERED: SODIUM ZIRCONIUM CYCLOSILICATE 10 GM PO ONE (16:30)
--- NOTE | 2020-07-22 17:48 | NUR ---
WENT TO PT ROOM TO ADMINISTER MEDICATION AND PT'S ROOM WAS EMPTY. PT NOT FOUND IN THE DEPARTMENT.
--- NOTE | 2020-07-22 18:01 | NUR ---
MEDICATION AND DISCHARGE PAPERWORK LEFT AT CHARGE DESK AND NOTIFIED OF ELOPMENT.
== END 2020-07-22 18:05 | disposition left against medical advice (07) ==
LOC: ED 17:36
DX: R06.00 Dyspnea, unspecified (principal); R05 Cough; R53.1 Weakness; E11.9 Type 2 diabetes mellitus without complications; I12.9 Hypertensive chronic kidney disease with stage 1 through stage 4 chronic kidney disease, or unspecified chronic kidney disease; N18.9 Chronic kidney disease, unspecified; Z87.891 Personal history of nicotine dependence
CPT/HCPCS: 36415; 71045; 80048; 82040; 83880; 85025; 93005; 99285

== ENCOUNTER 2020-07-27 23:19 | Emergency (ER) | payer MEDICAID ==
[~2020-07-27] VITALS: Ht 170.2 cm; Wt 55.0 kg
[2020-07-28 00:20] LABS: BASOPHILS % (AUTO) 1 % (0-1); EOSINOPHILS % (AUTO) 2 % (1-7); LYMPHOCYTES % (AUTO) 15 % (22-44); MEAN CORPUSCULAR HEMOGLOBIN 28.6 pg (27.5-34.5); MEAN PLATELET VOLUME 7.3 fL (7.4-10.4); MONOCYTES % (AUTO) 11 % (2-9); NEUTROPHILS % (AUTO) 71 % (42-75); PLATELET COUNT 247 x10^3/uL (130-400); RED BLOOD COUNT 3.49 x10^6/uL (4.38-5.82); RED CELL DISTRIBUTION WIDTH 18.2 % (9.4-14.8)
[2020-07-28 00:25] LABS: MD NO
[2020-07-28 00:35] LABS: ALANINE AMINOTRANSFERASE 29 U/L (12-78); ALBUMIN 4.1 g/dL (3.4-5.0); ANION GAP 11 mmol/L (5-15); CALCIUM 9.6 mg/dL (8.5-10.1); CHLORIDE 94 mmol/L (98-107)
[2020-07-28 00:38] LABS: ALKALINE PHOSPHATASE 230 U/L (45-117); BILIRUBIN,TOTAL 0.5 mg/dL (0.2-1.0); TOTAL PROTEIN 9.6 g/dL (6.4-8.2)
[2020-07-28 00:48] VITALS: BP 158/99
--- NOTE | 2020-07-28 01:22 | NUR ---
Break RN: Discharge instructions given. All questions and concerns addressed. Patient ambulatory with a steady gait. Belongings with patient.
== END 2020-07-28 01:23 | disposition home or self-care (01) ==
LOC: ED 07-28 01:01
DX: R05 Cough (principal); N18.6 End stage renal disease; R06.00 Dyspnea, unspecified; R94.31 Abnormal electrocardiogram [ECG] [EKG]; Z99.2 Dependence on renal dialysis; Z87.891 Personal history of nicotine dependence
CPT/HCPCS: 36415; 71045; 80053; 85025; 87040; 93005; 99285

== ENCOUNTER 2020-08-04 10:57 | Inpatient (IN) | payer MEDICAID ==
[~2020-08-04] VITALS: Ht 177.8 cm; Wt 57.3 kg
--- NOTE | 2020-08-04 11:14 | NUR ---
[facility], PT WITH C/O SOB. PT WITH RECENT DX OF PNA LAST WEEK, COVID TEST- PER EMS REPORT. PT SATING 100% ON RA. PER EMS REPORT PT WITH ESRD, PT WITH DIALYSIS SCHEDULE M,W,F PT WAS SENT HOME WITHOUT RECEIVING DIALYSIS WAS TOLD HE WAS "TOO SICK" LAST TWO VISITS, LAST DIALYSIS, THURSDAY THIS WEEK PT TO ALL MONITORS, AWAITING GIO FARLEY
[2020-08-04 12:27] LABS: ALANINE AMINOTRANSFERASE 93 U/L (12-78); ALBUMIN 3.5 g/dL (3.4-5.0); ANION GAP 19 mmol/L (5-15); CALCIUM 8.6 mg/dL (8.5-10.1); CHLORIDE 93 mmol/L (98-107)
[2020-08-04 12:29] LABS: ALKALINE PHOSPHATASE 306 U/L (45-117); BILIRUBIN,TOTAL 1.7 mg/dL (0.2-1.0); TOTAL PROTEIN 8.8 g/dL (6.4-8.2)
--- NOTE | 2020-08-04 12:33 | NUR ---
ERMD IN TO EVAL PT ORDERS RECIEVED. VSS AT THIS TIME, NAD NOTED
[2020-08-04 13:18] LABS: BASOPHILS % (AUTO) 0 % (0-1); EOSINOPHILS % (AUTO) 1 % (1-7); LYMPHOCYTES % (AUTO) 11 % (22-44); MEAN CORPUSCULAR HEMOGLOBIN 28.6 pg (27.5-34.5); MEAN CORPUSCULAR HGB CONC 33.4 g/dL (33.2-36.2); MEAN PLATELET VOLUME 7.7 fL (7.4-10.4); MONOCYTES % (AUTO) 8 % (2-9); NEUTROPHILS % (AUTO) 80 % (42-75); PLATELET COUNT 252 x10^3/uL (130-400); RED BLOOD COUNT 3.29 x10^6/uL (4.38-5.82)
[2020-08-04] MEDS ORDERED: INSULIN REGULAR 100 UNITS/ML, 3ML VIAL IVPush ONE (13:30)
[2020-08-04] MEDS ORDERED: DEXTROSE 50%, 50ML SYRINGE IVPush ONE (13:30)
[2020-08-04] MEDS ORDERED: CEFTRIAXONE PMX 1GM/50ML 50 ML IV ONE (13:30)
[2020-08-04] MEDS ORDERED: DEXTROSE 50%, 50ML SYRINGE ONE (13:34)
[2020-08-04 13:35] LABS: MD NO
[2020-08-04] MEDS ORDERED: INSULIN SINGLE DOSE, ER ONE (13:35)
--- NOTE | 2020-08-04 13:44 | NUR ---
COVID SWAB COMPLETED AND WALKED TO LAB, PT WITH DIFFICULT ACCESS, US GUIDED IV BEING ATTEMPTED BY LONNIE DONALD. VSS
[2020-08-04 13:46] LABS: C-REACTIVE PROTEIN, QUANT 8.42 mg/dL (0.02-0.49)
--- NOTE | 2020-08-04 14:11 | NUR ---
task rn: received call from lab for critical procalcitonin of 39.55
[2020-08-04] MEDS ORDERED: ACETAMINOPHEN 325 MG TABLET PO ONE (14:30)
[2020-08-04] MEDS ORDERED: LORazepam 2 MG/ML, 1ML IVPush ONE (14:30)
[2020-08-04] MEDS ORDERED: ACETAMINOPHEN 325 MG TABLET ONE (14:32)
[2020-08-04] MEDS ORDERED: LORazepam 2 MG/ML, 1ML ONE (14:32)
--- NOTE | 2020-08-04 14:43 | NUR ---
PT POSTURING IN BED, APPEARS TO BE IN PAIN, WHEN ASKED PT STATES "MY BELLY IS WARM" ERMD UPDATED, PT APPEARS VERY UNCOMFORTABLE, SEEMS TO BE HAVING ABD PAIN ALTHOUGH PT VAGUE ABOUT DESCRIBING AND DENIES PAIN WHEN ASKED. ERMD IN RM TO EVAL PT ABD, NO TENDERNESS APPRECIATED, ADDITIONAL MEDICATIONS ORDERED TO ATTEMPT TO KEEP PT MORE COMFORTABLE. PT MEDICATED PER MAR
[2020-08-04] MEDS ORDERED: ONDANSETRON 2MG/ML, 2ML IVPush PRN (15:00)
[2020-08-04] MEDS ORDERED: AZITHROMYCIN 500 MG in SODIUM CHLORIDE 0.9% 250 ML IV ONE (15:00)
[2020-08-04] MEDS ORDERED: BACLOFEN 10 MG TABLET PO PRN (15:00)
[2020-08-04] MEDS ORDERED: LABETALOL 5MG/ML, 20ML IVPush PRN (15:00)
[2020-08-04] MEDS ORDERED: BUTALB/APAP/CAFFEINE 50MG/325MG/40MG PO PRN (15:00)
[2020-08-04] MEDS ORDERED: GUAIFENESIN/DM 200-20MG, 10ML UDC PO PRN (15:00)
[2020-08-04] MEDS ORDERED: ACETAMINOPHEN 325 MG TABLET PO PRN (15:00)
[2020-08-04] MEDS ORDERED: ENALAPRILAT 1.25 MG/ML, 2ML IVPush PRN (15:00)
[2020-08-04] MEDS ORDERED: ONDANSETRON ODT 4 MG PO PRN (15:00)
--- NOTE | 2020-08-04 15:52 | NUR ---
PT. REMAINS MONITORED AND IS RESTING WITHOUT CONCERNS. HOB IS ELEVATED AND THE PT. REMAINS A & O X 4.
[2020-08-04 16:16] LABS: SEDIMENTATION RATE > 120 mm/hr (0-10)
[2020-08-04 16:17] LABS: HCT (SEDRATE) 28.1 % (39.2-51.8)
--- NOTE | 2020-08-04 17:46 | NUR ---
TASK RN: HOSPITALIST AT BEDSIDE
[2020-08-04] MEDS ORDERED: methylPREDNISolone SOD SUCC 125 MG/2 ML ONE ×2 (17:52→17:56)
[2020-08-04] MEDS ORDERED: HEPARIN 5,000 UNITS/ML, 1ML ONE ×2 (17:52→17:56)
[2020-08-04] MEDS ORDERED: ASCORBIC ACID 500 MG TABLET ONE ×2 (17:52→17:56)
[2020-08-04] MEDS: methylPREDNISolone SOD SUCC 125 MG/2 ML IVPush SCH (17:58)
[2020-08-04] MEDS: ASCORBIC ACID 500 MG TABLET PO SCH (17:58)
[2020-08-04] MEDS: HEPARIN 5,000 UNITS/ML, 1ML SQ SCH (17:58)
--- NOTE | 2020-08-04 18:05 | NUR ---
TASK RN: PROVIDED SNACK WHILE AWAITING DINNER
--- NOTE | 2020-08-04 18:33 | NUR ---
PT.'S BGL WAS 81. PT. WAS PLACED ON A HOSPITAL BED AND POSITIONED FOR COMFORT. PT. HAS BLANKETS IN PLACE FOR WARMTH AND REMAINS MONITORED. VSS. SIDERAILS UP X 2 WITH THE CALL LIGHT IN PLACE.
[2020-08-04] MEDS ORDERED: CEFTRIAXONE PMX 1GM/50ML 50 ML ONE (19:39)
[2020-08-04] MEDS: CEFTRIAXONE PMX 1GM/50ML 50 ML IV SCH (19:52)
--- NOTE | 2020-08-04 19:53 | NUR ---
NO CHANGES AT THIS TIME PT. REMAINS MONITORED IV ABX ARE INFUSING.
--- NOTE | 2020-08-04 20:03 | NUR ---
blood glucose checked. 147 mg/dl. charted. pt calm quiet and cooperative. resting comfortably in bed.
--- NOTE | 2020-08-04 20:35 | NUR ---
PT. HAD HIS SECOND LARGE,FORMED BM. PT. WAS INSTRUCTED TO NOT USE THE BLEACH CLEANING WIPES TP HOWEVER PT. DID NOT COMPLY. PT. HAS TISSUE AT THE BEDSIDE AND IS NOT USING IT EVEN THOUGH HE WAS EDUCATED ON THE TOXICITY OF THE BLEACH WIPES. PT.'S IV ABX ARE COMPLETE. LINE WAS FLUSHED AND REMAINS PATENT. PT. HAS THE CP MONITOR IN PLACE AND IS WATCHING TV. SIDERAILS REMAIN UP X 2 WITH THE CALL LIGHT IN PLACE.
--- NOTE | 2020-08-04 20:38 | NUR ---
REPORT WAS GIVEN.
[2020-08-04 22:24] VITALS: BP 153/80
[2020-08-04 22:39] VITALS: BP 147/82
[2020-08-04] MEDS: MELATONIN 5 MG TABLET PO SCH (22:45)
[2020-08-05 02:00] VITALS: BP 103/69
[2020-08-05 02:44] VITALS: BP 123/76
[2020-08-05] MEDS: HEPARIN 5,000 UNITS/ML, 1ML SQ SCH ×3 (02:53→18:03)
[2020-08-05] MEDS: methylPREDNISolone SOD SUCC 125 MG/2 ML IVPush SCH ×3 (02:53→18:03)
[2020-08-05 06:41] LABS: BASOPHILS % (AUTO) 0 % (0-1); EOSINOPHILS % (AUTO) 0 % (1-7); LYMPHOCYTES % (AUTO) 11 % (22-44); MEAN CORPUSCULAR HEMOGLOBIN 28.4 pg (27.5-34.5); MEAN CORPUSCULAR HGB CONC 33.7 g/dL (33.2-36.2); MEAN PLATELET VOLUME 7.5 fL (7.4-10.4); MONOCYTES % (AUTO) 5 % (2-9); NEUTROPHILS % (AUTO) 84 % (42-75); PLATELET COUNT 292 x10^3/uL (130-400); RED BLOOD COUNT 3.44 x10^6/uL (4.38-5.82); RED CELL DISTRIBUTION WIDTH 19.2 % (9.4-14.8)
[2020-08-05 06:43] LABS: CHLORIDE 96 mmol/L (98-107)
[2020-08-05 06:46] VITALS: BP 148/93
[2020-08-05 06:49] LABS: MD NO
[2020-08-05 06:52] LABS: ALANINE AMINOTRANSFERASE 109 U/L (12-78); ALBUMIN 3.5 g/dL (3.4-5.0); ALKALINE PHOSPHATASE 294 U/L (45-117); ANION GAP 11 mmol/L (5-15); BILIRUBIN,TOTAL 1.1 mg/dL (0.2-1.0); CALCIUM 9.7 mg/dL (8.5-10.1); CREATININE 9.19 mg/dL (0.7-1.3); TOTAL PROTEIN 9.8 g/dL (6.4-8.2)
[2020-08-05] MEDS: CEFTRIAXONE PMX 1GM/50ML 50 ML IV SCH ×2 (08:25→21:15)
[2020-08-05] MEDS: FLUTICASONE/VILANTEROL 100-25MCG/INH INH SCH (08:28)
[2020-08-05] MEDS: MULTIVITS,STRESS FORMULA 1 TABLET PO SCH (08:29)
[2020-08-05] MEDS: SENNA/DOCUSATE TABLET PO SCH (08:29)
[2020-08-05] MEDS: CHOLECALCIFEROL 5,000u TAB PO SCH (08:29)
[2020-08-05] MEDS: ZINC SULFATE 220 MG CAPSULE PO SCH (08:29)
[2020-08-05] MEDS: ASCORBIC ACID 500 MG TABLET PO SCH ×2 (08:29→17:00)
[2020-08-05] MEDS ORDERED: DARBEPOETIN 40 MCG/ML SQ SCH (09:00)
[2020-08-05] MEDS: AZITHROMYCIN 500 MG in SODIUM CHLORIDE 0.9% 250 ML IV SCH (10:47)
[2020-08-05] MEDS: SEVELAMER CARBONATE 800MG TAB PO SCH ×2 (12:35→18:02)
[2020-08-05 15:18] VITALS: BP 157/97
[2020-08-05] MEDS ORDERED: ASCORBIC ACID 250 MG TAB ONE (17:57)
[2020-08-05 20:00] VITALS: BP 144/81
[2020-08-05] MEDS: MELATONIN 5 MG TABLET PO SCH (21:15)
[2020-08-05 23:52] VITALS: BP 152/90
[2020-08-06 00:46] VITALS: BP 152/90
[2020-08-06] MEDS: HEPARIN 5,000 UNITS/ML, 1ML SQ SCH ×3 (01:52→17:59)
[2020-08-06] MEDS: methylPREDNISolone SOD SUCC 125 MG/2 ML IVPush SCH ×3 (01:52→17:59)
[2020-08-06 06:08] LABS: BASOPHILS % (AUTO) 0 % (0-1); EOSINOPHILS % (AUTO) 0 % (1-7); LYMPHOCYTES % (AUTO) 4 % (22-44); MEAN CORPUSCULAR HEMOGLOBIN 28.3 pg (27.5-34.5); MEAN CORPUSCULAR HGB CONC 33.2 g/dL (33.2-36.2); MEAN PLATELET VOLUME 7.8 fL (7.4-10.4); MONOCYTES % (AUTO) 4 % (2-9); NEUTROPHILS % (AUTO) 93 % (42-75); PLATELET COUNT 358 x10^3/uL (130-400); RED BLOOD COUNT 3.21 x10^6/uL (4.38-5.82); RED CELL DISTRIBUTION WIDTH 19.1 % (9.4-14.8)
[2020-08-06 06:15] LABS: CHLORIDE 98 mmol/L (98-107)
[2020-08-06 06:27] LABS: ALANINE AMINOTRANSFERASE 79 U/L (12-78); ALBUMIN 3.4 g/dL (3.4-5.0); ALKALINE PHOSPHATASE 248 U/L (45-117); ANION GAP 13 mmol/L (5-15); BILIRUBIN,TOTAL 0.8 mg/dL (0.2-1.0); TOTAL PROTEIN 9.3 g/dL (6.4-8.2)
[2020-08-06 06:44] VITALS: BP 160/83
[2020-08-06 10:20] LABS: MD SCAN
[2020-08-06] MEDS: SEVELAMER CARBONATE 800MG TAB PO SCH ×3 (12:00→17:58)
[2020-08-06] MEDS: ASCORBIC ACID 500 MG TABLET PO SCH ×2 (12:55→17:59)
[2020-08-06] MEDS: ZINC SULFATE 220 MG CAPSULE PO SCH (12:55)
[2020-08-06] MEDS: CHOLECALCIFEROL 5,000u TAB PO SCH (12:55)
[2020-08-06] MEDS: MULTIVITS,STRESS FORMULA 1 TABLET PO SCH (12:55)
[2020-08-06] MEDS: SENNA/DOCUSATE TABLET PO SCH (12:55)
[2020-08-06] MEDS: FLUTICASONE/VILANTEROL 100-25MCG/INH INH SCH (12:56)
[2020-08-06] MEDS: CEFTRIAXONE PMX 1GM/50ML 50 ML IV SCH (12:56)
[2020-08-06 13:51] VITALS: BP 130/73
[2020-08-06] MEDS: AZITHROMYCIN 500 MG in SODIUM CHLORIDE 0.9% 250 ML IV SCH (15:21)
[2020-08-06 18:48] VITALS: BP 149/81
[2020-08-06] MEDS: MELATONIN 5 MG TABLET PO SCH (20:30)
[2020-08-07 01:05] VITALS: BP 127/74
[2020-08-07] MEDS: methylPREDNISolone SOD SUCC 125 MG/2 ML IVPush SCH ×3 (01:24→15:59)
[2020-08-07] MEDS: CEFTRIAXONE PMX 1GM/50ML 50 ML IV SCH ×2 (01:24→13:30)
[2020-08-07] MEDS: HEPARIN 5,000 UNITS/ML, 1ML SQ SCH ×3 (01:25→15:59)
[2020-08-07 07:07] VITALS: BP 136/85
[2020-08-07] MEDS: ASCORBIC ACID 500 MG TABLET PO SCH ×2 (08:00→15:59)
[2020-08-07] MEDS ORDERED: ASCORBIC ACID 250 MG TAB ONE (09:10)
[2020-08-07] MEDS: MULTIVITS,STRESS FORMULA 1 TABLET PO SCH (09:20)
[2020-08-07] MEDS: FLUTICASONE/VILANTEROL 100-25MCG/INH INH SCH (09:20)
[2020-08-07] MEDS: SENNA/DOCUSATE TABLET PO SCH (09:20)
[2020-08-07] MEDS: CHOLECALCIFEROL 5,000u TAB PO SCH (09:20)
[2020-08-07] MEDS: SEVELAMER CARBONATE 800MG TAB PO SCH ×3 (09:20→15:59)
[2020-08-07] MEDS: ZINC SULFATE 220 MG CAPSULE PO SCH (09:21)
[2020-08-07 13:07] VITALS: BP 147/89
[2020-08-07] MEDS ORDERED: AZITHROMYCIN 500 MG in SODIUM CHLORIDE 0.9% 250 ML IV SCH (15:00)
[2020-08-07 18:38] VITALS: BP 160/93
[2020-08-07] MEDS: MELATONIN 5 MG TABLET PO SCH (20:59)
[2020-08-08 01:30] VITALS: BP 162/78
[2020-08-08] MEDS: HEPARIN 5,000 UNITS/ML, 1ML SQ SCH ×3 (02:26→18:00)
[2020-08-08 06:39] VITALS: BP 157/90
[2020-08-08] MEDS: CHOLECALCIFEROL 5,000u TAB PO SCH (08:49)
[2020-08-08] MEDS: ASCORBIC ACID 500 MG TABLET PO SCH ×2 (08:49→17:00)
[2020-08-08] MEDS: SEVELAMER CARBONATE 800MG TAB PO SCH ×3 (08:49→17:00)
[2020-08-08] MEDS: MULTIVITS,STRESS FORMULA 1 TABLET PO SCH (08:49)
[2020-08-08] MEDS: ZINC SULFATE 220 MG CAPSULE PO SCH (08:49)
[2020-08-08] MEDS: FLUTICASONE/VILANTEROL 100-25MCG/INH INH SCH (08:51)
[2020-08-08] MEDS: SENNA/DOCUSATE TABLET PO SCH (08:51)
[2020-08-08] MEDS ORDERED: DEXAMETHASONE 4 MG/ML, 1ML IVPush SCH (09:00)
[2020-08-08] MEDS ORDERED: AMLODIPINE 5 MG TABLET PO SCH (11:00)
[2020-08-08 13:26] VITALS: BP 155/85
[2020-08-08 18:55] VITALS: BP 132/81
== END 2020-08-08 19:39 | disposition home or self-care (01) | DRG 177 ==
LOC: ED 11:01 → EDIP 14:53 → 4WST 21:56
PROVIDERS: ADMIT Family Medicine; ATTEND Internal Medicine
PROC: 5A1D70Z Performance of Urinary Filtration, Intermittent, Less than 6 Hours Per Day (ICD-10-PCS; principal; 2020-08-07)
DX: U07.1 COVID-19 (principal); J12.89 Other viral pneumonia; N18.6 End stage renal disease; E87.1 Hypo-osmolality and hyponatremia; I12.0 Hypertensive chronic kidney disease with stage 5 chronic kidney disease or end stage renal disease; D63.1 Anemia in chronic kidney disease; D72.819 Decreased white blood cell count, unspecified; E78.5 Hyperlipidemia, unspecified; E87.5 Hyperkalemia; F41.9 Anxiety disorder, unspecified; R79.82 Elevated C-reactive protein (CRP); R79.89 Other specified abnormal findings of blood chemistry; M10.9 Gout, unspecified; N25.0 Renal osteodystrophy; Z91.19 Patient's noncompliance with other medical treatment and regimen; Z99.2 Dependence on renal dialysis; Z79.899 Other long term (current) drug therapy
CPT/HCPCS: 36415; 71045; 80053; 82728; 82962; 83605; 83615; 83735; 84100; 84145; 85025; 85379; 85651; 86140; 86705; 86706; 87040; 87340; 93005; 96365; 96375; G0378; J0456; J0696; J0881; J1100; J1644; J2405; J1815; J2060; J2930; J7050; U0003

== ENCOUNTER 2020-10-08 15:20 | Inpatient (IN) | payer MEDICAID ==
[~2020-10-08] VITALS: Ht 172.7 cm; Wt 55.7 kg
[~2020-10-08 15:20] MED LIST changes: -ASPI-515 PO; +ASPI-963 PO
--- NOTE | 2020-10-08 15:22 | NUR ---
patient arrives from home with [facility] wtih increasing sob, weakness and cough. he has kidney failure, fistula right upper arm, and had dialysis thursday but by Sat was feeling overloaded.
[2020-10-08 16:33] LABS: BASOPHILS % (AUTO) 1 % (0-1); EOSINOPHILS % (AUTO) 2 % (1-7); LYMPHOCYTES % (AUTO) 13 % (22-44); MEAN CORPUSCULAR HEMOGLOBIN 30.9 pg (27.5-34.5); MEAN CORPUSCULAR HGB CONC 33.4 g/dL (33.2-36.2); MEAN PLATELET VOLUME 7.3 fL (7.4-10.4); MONOCYTES % (AUTO) 6 % (2-9); NEUTROPHILS % (AUTO) 78 % (42-75); PLATELET COUNT 296 x10^3/uL (130-400); RED BLOOD COUNT 3.19 x10^6/uL (4.38-5.82); RED CELL DISTRIBUTION WIDTH 16.2 % (9.4-14.8)
[2020-10-08 16:46] LABS: ALANINE AMINOTRANSFERASE 51 U/L (12-78); ALBUMIN 4.2 g/dL (3.4-5.0); ANION GAP 12 mmol/L (5-15); CALCIUM 9.6 mg/dL (8.5-10.1); CHLORIDE 106 mmol/L (98-107); MD NO
[2020-10-08 16:51] LABS: ALKALINE PHOSPHATASE 288 U/L (45-117); BILIRUBIN,TOTAL 0.7 mg/dL (0.2-1.0); TOTAL PROTEIN 8.3 g/dL (6.4-8.2)
[2020-10-08] MEDS ORDERED: CEFTRIAXONE PMX 1GM/50ML 50 ML IVPB ONE (18:00)
[2020-10-08] MEDS ORDERED: CEFTRIAXONE PMX 1GM/50ML 50 ML ONE (18:17)
[2020-10-08] MEDS ORDERED: AZITHROMYCIN 500 MG in SODIUM CHLORIDE 0.9% 250 ML IV ONE (18:30)
--- NOTE | 2020-10-08 18:34 | NUR ---
after i started iv in left ac and viipn cultures/labs, iv then blew. patient has difficult vasculature. started 20 gauge one attempt left hand.
[2020-10-08 18:54] LABS: C-REACTIVE PROTEIN, QUANT 2.4 mg/dL (0.02-0.49)
--- NOTE | 2020-10-08 18:55 | NUR ---
Report received from ODILON Smith. This RN to assume care. Awaiting admission bed.
[2020-10-08] MEDS ORDERED: LABETALOL 5MG/ML, 20ML IVPush PRN (19:00)
[2020-10-08 19:14] LABS: D-DIMER (DIC) 0.74 ug/mlFEU (0.00-0.52); PROTIME 12.1 Seconds (9.6-11.5)
--- NOTE | 2020-10-08 19:36 | NUR ---
Report given to ODILON Yang. Patient to be transferred to room 482.
[2020-10-08 20:17] VITALS: BP 132/80
[2020-10-08] MEDS ORDERED: Prednisone (20:33)
[2020-10-08] MEDS: ACETAMINOPHEN 325 MG TABLET PO PRN (20:49)
[2020-10-08] MEDS: ATORVASTATIN 40 MG TABLET PO SCH (20:49)
[2020-10-08] MEDS: GUAIFENESIN/DM 200-20MG, 10ML UDC PO PRN (20:49)
[2020-10-08] MEDS: DOCUSATE 100 MG CAPSULE PO PRN (20:50)
[2020-10-08] MEDS: ALBUTEROL HFA 90 MCG/SPRAY INH PRN (20:55)
[2020-10-09 00:25] VITALS: BP 135/78
[2020-10-09 01:41] VITALS: BP 143/87
[2020-10-09] MEDS: ACETAMINOPHEN 325 MG TABLET PO PRN (01:41)
[2020-10-09] MEDS ORDERED: DIPHENHYDRAMINE 50 MG/ML, 1ML ONE (02:53)
[2020-10-09] MEDS: ALBUTEROL HFA 90 MCG/SPRAY INH PRN ×2 (02:57→21:25)
[2020-10-09] MEDS ORDERED: DIPHENHYDRAMINE 50 MG/ML, 1ML IVPush PRN (03:00)
[2020-10-09] MEDS: CARVEDILOL 6.25 MG TABLET PO SCH ×3 (04:54→21:25)
[2020-10-09 05:27] LABS: BASOPHILS % (AUTO) 1 % (0-1); EOSINOPHILS % (AUTO) 2 % (1-7); LYMPHOCYTES % (AUTO) 12 % (22-44); MEAN CORPUSCULAR HEMOGLOBIN 30.8 pg (27.5-34.5); MEAN CORPUSCULAR HGB CONC 32.9 g/dL (33.2-36.2); MEAN PLATELET VOLUME 7.3 fL (7.4-10.4); MONOCYTES % (AUTO) 6 % (2-9); NEUTROPHILS % (AUTO) 79 % (42-75); PLATELET COUNT 290 x10^3/uL (130-400); RED BLOOD COUNT 3.15 x10^6/uL (4.38-5.82); RED CELL DISTRIBUTION WIDTH 16.5 % (9.4-14.8)
[2020-10-09 05:31] LABS: ANION GAP 15 mmol/L (5-15); CALCIUM 9.5 mg/dL (8.5-10.1); CHLORIDE 105 mmol/L (98-107)
[2020-10-09] MEDS: OMEPRAZOLE 20 MG CAPSULE.DR PO SCH ×2 (05:51→17:48)
[2020-10-09] MEDS: GUAIFENESIN/DM 200-20MG, 10ML UDC PO PRN (05:56)
[2020-10-09 05:59] LABS: MD NO
[2020-10-09 07:37] VITALS: BP 151/88
[2020-10-09] MEDS: AMLODIPINE 10 MG TAB PO SCH (08:40)
[2020-10-09] MEDS: TAMSULOSIN 0.4 MG CAP.ER.24H PO SCH (08:40)
[2020-10-09] MEDS: SEVELAMER CARBONATE 800MG TAB PO SCH ×3 (08:40→17:48)
[2020-10-09] MEDS: ASPIRIN 81 MG TABLET EC PO SCH (08:40)
[2020-10-09] MEDS: GABAPENTIN 100 MG CAPSULE PO SCH (08:40)
[2020-10-09 12:26] VITALS: BP_SYST 132; BP_SYST 142; BP_DIAS 79; BP_DIAS 89
[2020-10-09] MEDS ORDERED: AZITHROMYCIN 500 MG TABLET PO SCH (18:30)
[2020-10-09] MEDS ORDERED: CEFTRIAXONE PMX 1GM/50ML 50 ML IV SCH (18:30)
[2020-10-09 19:46] VITALS: BP 149/86
[2020-10-09] MEDS: DOCUSATE 100 MG CAPSULE PO PRN (19:51)
[2020-10-09] MEDS: ATORVASTATIN 40 MG TABLET PO SCH (19:51)
[2020-10-09 20:42] VITALS: BP 135/76
[2020-10-09] MEDS ORDERED: DIPHENHYDRAMINE 50 MG CAPSULE ONE (21:23)
[2020-10-09] MEDS ORDERED: DIPHENHYDRAMINE 50 MG CAPSULE PO PRN (21:30)
[2020-10-10] MEDS ORDERED: MELATONIN 5 MG TABLET PO PRN
[2020-10-10 01:35] VITALS: BP 133/77
[2020-10-10] MEDS: OMEPRAZOLE 20 MG CAPSULE.DR PO SCH ×2 (05:18→18:18)
[2020-10-10 07:26] VITALS: BP 133/82
[2020-10-10] MEDS: TAMSULOSIN 0.4 MG CAP.ER.24H PO SCH (08:48)
[2020-10-10] MEDS: ASPIRIN 81 MG TABLET EC PO SCH (08:48)
[2020-10-10] MEDS: SEVELAMER CARBONATE 800MG TAB PO SCH ×3 (08:48→18:18)
[2020-10-10] MEDS: GABAPENTIN 100 MG CAPSULE PO SCH (08:48)
[2020-10-10] MEDS: AMLODIPINE 10 MG TAB PO SCH (09:00)
[2020-10-10 18:13] VITALS: BP 138/91
[2020-10-10] MEDS: CARVEDILOL 6.25 MG TABLET PO SCH (18:18)
== END 2020-10-10 18:24 | disposition home or self-care (01) | DRG 177 ==
LOC: ED 16:56 → EDIP 18:13 → 4EST 19:54
PROVIDERS: ADMIT Emergency Medicine; ATTEND Internal Medicine
DX: U07.1 COVID-19 (principal); J12.82 Pneumonia due to coronavirus disease 2019; J15.9 Unspecified bacterial pneumonia; J96.01 Acute respiratory failure with hypoxia; N18.6 End stage renal disease; E87.1 Hypo-osmolality and hyponatremia; I12.0 Hypertensive chronic kidney disease with stage 5 chronic kidney disease or end stage renal disease; J81.1 Chronic pulmonary edema; D72.819 Decreased white blood cell count, unspecified; D63.1 Anemia in chronic kidney disease; E78.5 Hyperlipidemia, unspecified; E87.5 Hyperkalemia; E87.70 Fluid overload, unspecified; M10.9 Gout, unspecified; N25.0 Renal osteodystrophy; N40.0 Benign prostatic hyperplasia without lower urinary tract symptoms; Z99.2 Dependence on renal dialysis
CPT/HCPCS: 36415; 71045; 80048; 80053; 82728; 83605; 83615; 83880; 85025; 85049; 85379; 85384; 85610; 85730; 86140; 87040; 93005; 96374; 96375; 99285; G0378; J0456; J0696; J1200; J7050; U0003

== ENCOUNTER 2020-12-10 09:07 | Inpatient (IN) | payer MEDICAID ==
[~2020-12-10] VITALS: Ht 170.2 cm; Wt 69.7 kg
[~2020-12-10 09:07] MED LIST changes: +FERR324T23 PO; -FERR325T16 PO; +Prednisone
--- NOTE | 2020-12-10 09:22 | NUR ---
BIB [facility] FROM HOME FOR ITCHINESS, SOB AND STIFF NECK "STARTING LAST WEEK" PT HAS MISSED TOTAL OF 3 DIALYSIS APPTS INCLUDING TODAY. DENIES PAIN BESIDES ITCHINESS. EKG COMPLETED. IV START BY [facility]. CXR COMPLETED. AWAITING LABS.
[2020-12-10] MEDS ORDERED: ALLO300T PO (09:25)
[2020-12-10] MEDS ORDERED: SODIUM CHLORIDE FLUSH 10ML SYR IVF ONE (09:30)
--- NOTE | 2020-12-10 09:30 | NUR ---
DISCUSSION WITH EDMD REGARDING PT'S BP. PT CURRENTLY NOT COMPLIANT WITH RX, REPORTS LAST DOSE "A COUPLE OF DAYS AGO". AWAITING FURTHER ORDERS.
[2020-12-10] MEDS ORDERED: AMLODIPINE 10 MG TAB ONE (09:37)
[2020-12-10] MEDS: AMLODIPINE 10 MG TAB PO SCH (09:40)
[2020-12-10 09:52] LABS: ALANINE AMINOTRANSFERASE 21 U/L (12-78); ALBUMIN 3.9 g/dL (3.4-5.0); ANION GAP 18 mmol/L (5-15); CALCIUM 9.6 mg/dL (8.5-10.1); CHLORIDE 99 mmol/L (98-107)
[2020-12-10 10:06] LABS: BASOPHILS % (AUTO) 1 % (0-1); EOSINOPHILS % (AUTO) 2 % (1-7); LYMPHOCYTES % (AUTO) 11 % (22-44); MEAN CORPUSCULAR HEMOGLOBIN 26.7 pg (27.5-34.5); MEAN CORPUSCULAR HGB CONC 32.2 g/dL (33.2-36.2); MEAN PLATELET VOLUME 7.9 fL (7.4-10.4); MONOCYTES % (AUTO) 7 % (2-9); NEUTROPHILS % (AUTO) 78 % (42-75); PLATELET COUNT 268 x10^3/uL (130-400); RED BLOOD COUNT 3.53 x10^6/uL (4.38-5.82); RED CELL DISTRIBUTION WIDTH 19.2 % (9.4-14.8)
[2020-12-10 10:12] LABS: MD NO
[2020-12-10 10:20] LABS: ALKALINE PHOSPHATASE 236 U/L (45-117); BILIRUBIN,TOTAL 0.5 mg/dL (0.2-1.0); TOTAL PROTEIN 8.7 g/dL (6.4-8.2)
--- NOTE | 2020-12-10 10:23 | NUR ---
HOB CHANGED FOR PT COMFORT. PT RESTLESS IN BED, CONTINUALLY MOVES IN BED, DISCUSSION WITH ED MD REGARDING ITCHINESS AND BP REMAINS HYPERTENSIVE. AWAITING FURTHER ORDERS.
[2020-12-10] MEDS ORDERED: DIPHENHYDRAMINE 25 MG CAPSULE PO ONE (10:30)
[2020-12-10] MEDS ORDERED: DIPHENHYDRAMINE 25 MG CAPSULE ONE (10:31)
--- NOTE | 2020-12-10 11:30 | NUR ---
PT RESTING WITH EYES CLOSED IN BED, ENCOURAGED TO KEEP MASK ON BUT PT CONTINUES TO REMOVE MASK. RN HELPS PT SLIDE UP IN BED, PT SCOOTS SELF LOWER. NAD NOTED AT THIS TIME. SIDE RAILS UP, CALL LIGHT IN REACH. HTN PERSISTS. MD AWARE.
[2020-12-10] MEDS ORDERED: SODIUM CHLORIDE FLUSH 10ML SYR IVF PRN (12:00)
--- NOTE | 2020-12-10 12:20 | NUR ---
CALL TO TELE2 FOR REPORT.
--- NOTE | 2020-12-10 12:26 | NUR ---
TELE 2 RN UNABLE TO TAKE REPORT AT THIS TIME. ED RN TO TRY BACK IN 10 MIN.
--- NOTE | 2020-12-10 12:42 | NUR ---
SECOND ATTEMPT TO CALL REPORT.
--- NOTE | 2020-12-10 12:56 | NUR ---
Dr Hernandez in to assess pt. aware of BP. Awaiting orders. Dr Sena, urologist, to see pt. ODILON Bhakta updated.
[2020-12-10] MEDS ORDERED: hydrALAzine 20 MG/ML, 1ML ONE (13:19)
--- NOTE | 2020-12-10 13:22 | NUR ---
DISCUSSION WITH THROUGHPUT, PT IS GONE FROM ROOM BUT BELONGINGS REMAIN. PER LYNDSEY BOSWELL RN HOSPITALIST WANTS IMAGING PRIOR TO GOING TO FLOOR. AWAITING PT'S RETURN FOR CLIP AND HANGER ATTACHER.
[2020-12-10] MEDS ORDERED: hydrALAzine 20 MG/ML, 1ML IV PRN (13:30)
--- NOTE | 2020-12-10 13:35 | NUR ---
PT RETURNED FROM IMAGING. MED ADMINISTERED. BP MONITORING Q10 MIN. AWAITING IMAGING RESULT.
--- NOTE | 2020-12-10 13:47 | NUR ---
MESSAGE LEFT WITH SUBMARINE CABLE EQUIPMENT TECHNICIAN SURROUNDING PT'S RECENT MEDICATION ADMIN AND LACK OF FLU SWABS IN ED. PER UC, SHE WILL ALERT THE RN.
[2020-12-10 13:51] VITALS: BP 202/106
[2020-12-10] MEDS ORDERED: POLYETHYLENE GLYCOL 17 GM PACKET PO PRN (14:00)
[2020-12-10] MEDS ORDERED: ENALAPRILAT 1.25 MG/ML, 2ML IVPush PRN (14:00)
[2020-12-10] MEDS ORDERED: ACETAMINOPHEN 325 MG TABLET PO PRN (14:00)
[2020-12-10] MEDS ORDERED: DOCUSATE 100 MG CAPSULE PO PRN (14:00)
[2020-12-10] MEDS ORDERED: ONDANSETRON 2MG/ML, 2ML IVPush PRN (14:00)
[2020-12-10] MEDS ORDERED: BISACODYL 10 MG SUPP PR PRN (14:00)
[2020-12-10] MEDS ORDERED: ONDANSETRON ODT 4 MG PO PRN (14:00)
[2020-12-10] MEDS ORDERED: METOCLOPRAMIDE 5 MG/ML, 2ML IVPush PRN ×2 (14:00→16:00)
[2020-12-10] MEDS ORDERED: ENALAPRILAT 1.25 MG/ML, 1ML ONE (14:04)
[2020-12-10] MEDS: HEPARIN 5,000 UNITS/ML, 1ML SQ SCH ×2 (14:06→22:44)
[2020-12-10] MEDS: SEVELAMER CARBONATE 800MG TAB PO SCH ×2 (14:15→17:53)
[2020-12-10 15:25] LABS: RAPID INFLUENZA A Negative (Negative); RAPID INFLUENZA B Negative (Negative)
[2020-12-10] MEDS ORDERED: DARBEPOETIN 60 MCG/ML SQ SCH (15:30)
[2020-12-10] MEDS: CARVEDILOL 6.25 MG TABLET PO SCH (17:53)
[2020-12-10 17:54] VITALS: BP 159/77
[2020-12-10 20:30] VITALS: BP 153/72
[2020-12-10] MEDS: ATORVASTATIN 40 MG TABLET PO SCH (20:37)
[2020-12-11 01:29] VITALS: BP 147/66
[2020-12-11 05:46] LABS: ABSOLUTE RETICS # 0.036 x10^6/uL (0.5-1.5); BASOPHILS % (AUTO) 1 % (0-1); EOSINOPHILS % (AUTO) 2 % (1-7); LYMPHOCYTES % (AUTO) 14 % (22-44); MEAN CORPUSCULAR HEMOGLOBIN 26.6 pg (27.5-34.5); MEAN CORPUSCULAR HGB CONC 32.4 g/dL (33.2-36.2); MEAN PLATELET VOLUME 7.8 fL (7.4-10.4); MONOCYTES % (AUTO) 10 % (2-9); NEUTROPHILS % (AUTO) 73 % (42-75); PLATELET COUNT 343 x10^3/uL (130-400); RED BLOOD COUNT 3.69 x10^6/uL (4.38-5.82); RED CELL DISTRIBUTION WIDTH 19.1 % (9.4-14.8); RETICULOCYTE COUNT % 0.96 % (0.5-1.5)
[2020-12-11 05:47] LABS: ALBUMIN 3.7 g/dL (3.4-5.0); ANION GAP 14 mmol/L (5-15); CALCIUM 10.2 mg/dL (8.5-10.1); CHLORIDE 98 mmol/L (98-107)
[2020-12-11 05:59] LABS: MD NO
[2020-12-11 06:00] LABS: % IRON SATURATION 20 % (20-55); ALANINE AMINOTRANSFERASE 21 U/L (12-78); ALKALINE PHOSPHATASE 217 U/L (45-117); BILIRUBIN,TOTAL 0.7 mg/dL (0.2-1.0); CHOL/HDL RATIO 4.4; CHOLESTEROL, TOTAL 150 mg/dL (140-239); CREATININE 7.92 mg/dL (0.7-1.3); HDL CHOL % 23 % (26-37); HDL CHOLESTEROL (DIRECT) 34 mg/dL (40-60); IRON LEVEL 30 mcg/dL (65-175); LDL CHOLESTEROL,CALCULATED 93 mg/dL (54-169); LDL/HDL RATIO 2.7 (0.5-3.0); TOTAL IRON BINDING CAPACITY 153 mcg/dL (250-450); TOTAL PROTEIN 8.6 g/dL (6.4-8.2); TRIGLYCERIDES 117 mg/dL (50-200); VLDL CHOLESTEROL 23 mg/dL (0-25)
[2020-12-11] MEDS: CARVEDILOL 6.25 MG TABLET PO SCH ×2 (06:07→17:16)
[2020-12-11] MEDS: HEPARIN 5,000 UNITS/ML, 1ML SQ SCH ×3 (06:07→22:27)
[2020-12-11 06:17] VITALS: BP 131/63
[2020-12-11] MEDS: SEVELAMER CARBONATE 800MG TAB PO SCH ×3 (08:16→17:15)
[2020-12-11] MEDS: PANTOPRAZOLE 40MG TABLET PO SCH (08:17)
[2020-12-11] MEDS: AMLODIPINE 10 MG TAB PO SCH (08:18)
[2020-12-11 14:03] VITALS: BP 120/74
[2020-12-11 19:42] VITALS: BP 109/70
[2020-12-11] MEDS: ATORVASTATIN 40 MG TABLET PO SCH (20:15)
[2020-12-11] MEDS: MELATONIN 5 MG TABLET PO PRN (20:16)
[2020-12-12 00:46] VITALS: BP 116/73
[2020-12-12 04:54] LABS: BASOPHILS % (AUTO) 2 % (0-1); EOSINOPHILS % (AUTO) 2 % (1-7); LYMPHOCYTES % (AUTO) 21 % (22-44); MEAN CORPUSCULAR HEMOGLOBIN 26.7 pg (27.5-34.5); MEAN CORPUSCULAR HGB CONC 32.7 g/dL (33.2-36.2); MEAN PLATELET VOLUME 7.8 fL (7.4-10.4); MONOCYTES % (AUTO) 15 % (2-9); NEUTROPHILS % (AUTO) 60 % (42-75); PLATELET COUNT 362 x10^3/uL (130-400); RED BLOOD COUNT 4.01 x10^6/uL (4.38-5.82); RED CELL DISTRIBUTION WIDTH 19.1 % (9.4-14.8)
[2020-12-12 04:56] LABS: MD NO
[2020-12-12 05:08] LABS: ALBUMIN 3.8 g/dL (3.4-5.0); CHLORIDE 95 mmol/L (98-107)
[2020-12-12 05:14] LABS: ALANINE AMINOTRANSFERASE 22 U/L (12-78); ALKALINE PHOSPHATASE 220 U/L (45-117); ANION GAP 9 mmol/L (5-15); BILIRUBIN,TOTAL 0.6 mg/dL (0.2-1.0); CALCIUM 10.5 mg/dL (8.5-10.1); CREATININE 5.35 mg/dL (0.7-1.3)
[2020-12-12 06:52] VITALS: BP 108/69
[2020-12-12] MEDS: HEPARIN 5,000 UNITS/ML, 1ML SQ SCH ×2 (07:00→18:17)
[2020-12-12] MEDS: CARVEDILOL 6.25 MG TABLET PO SCH (08:00)
[2020-12-12] MEDS: SEVELAMER CARBONATE 800MG TAB PO SCH ×3 (08:00→18:17)
[2020-12-12] MEDS: AMLODIPINE 10 MG TAB PO SCH (09:00)
[2020-12-12 12:45] VITALS: BP 90/53
[2020-12-12] MEDS: PANTOPRAZOLE 40MG TABLET PO SCH (13:13)
[2020-12-12] MEDS: CARVEDILOL 3.125 MG TABLET PO SCH (18:00)
[2020-12-12 19:33] VITALS: BP 128/74
[2020-12-12] MEDS: AMLODIPINE 5 MG TABLET PO SCH (22:33)
[2020-12-12] MEDS: ATORVASTATIN 40 MG TABLET PO SCH (22:33)
[2020-12-12] MEDS: MELATONIN 5 MG TABLET PO PRN (22:36)
[2020-12-13 01:45] VITALS: BP 122/68
[2020-12-13] MEDS: HEPARIN 5,000 UNITS/ML, 1ML SQ SCH ×2 (02:00→10:00)
[2020-12-13 05:29] LABS: ALBUMIN 3.7 g/dL (3.4-5.0); ANION GAP 7 mmol/L (5-15); CALCIUM 9.7 mg/dL (8.5-10.1); CHLORIDE 97 mmol/L (98-107)
[2020-12-13 05:31] LABS: CREATININE 5.57 mg/dL (0.7-1.3)
[2020-12-13] MEDS: CARVEDILOL 3.125 MG TABLET PO SCH (06:22)
[2020-12-13 07:24] VITALS: BP 126/78
[2020-12-13] MEDS: AMLODIPINE 5 MG TABLET PO SCH (08:19)
[2020-12-13] MEDS: SEVELAMER CARBONATE 800MG TAB PO SCH ×2 (08:19→12:14)
[2020-12-13] MEDS: PANTOPRAZOLE 40MG TABLET PO SCH (08:19)
[2020-12-13 13:18] VITALS: BP 126/74
[2020-12-13] MEDS ORDERED: CARV3.1212 PO ×2 (15:35→16:08)
[2020-12-13] MEDS ORDERED: ATOR40TA78 PO ×2 (15:35→16:08)
[2020-12-13] MEDS ORDERED: ACET325T26 PO (15:35)
[2020-12-13] MEDS ORDERED: PANT40TA6 PO ×2 (15:35→16:08)
[2020-12-13] MEDS ORDERED: SEVE800T8 PO ×2 (15:35→16:08)
[2020-12-13] MEDS ORDERED: AMLO-150 PO ×2 (15:35→16:08)
[2020-12-13] MEDS ORDERED: MELA5TAB14 PO ×2 (15:35→16:08)
== END 2020-12-13 16:40 | disposition home or self-care (01) | DRG 304 ==
LOC: ED 09:19 → EDIP 11:45 → 4WST 13:46 → DCLOUNGE 12-13 16:35
PROVIDERS: ADMIT Internal Medicine; ATTEND Internal Medicine
PROC: 5A1D70Z Performance of Urinary Filtration, Intermittent, Less than 6 Hours Per Day (ICD-10-PCS; principal; 2020-12-10)
PROC: 5A1D70Z Performance of Urinary Filtration, Intermittent, Less than 6 Hours Per Day (ICD-10-PCS; 2020-12-11)
PROC: 5A1D70Z Performance of Urinary Filtration, Intermittent, Less than 6 Hours Per Day (ICD-10-PCS; 2020-12-11)
DX: I16.9 Hypertensive crisis, unspecified (principal); N18.6 End stage renal disease; E87.1 Hypo-osmolality and hyponatremia; E87.2 Acidosis; Z20.822 Contact with and (suspected) exposure to COVID-19; I12.0 Hypertensive chronic kidney disease with stage 5 chronic kidney disease or end stage renal disease; D64.9 Anemia, unspecified; E78.5 Hyperlipidemia, unspecified; E83.39 Other disorders of phosphorus metabolism; E87.5 Hyperkalemia; E87.70 Fluid overload, unspecified; L29.9 Pruritus, unspecified; M10.9 Gout, unspecified; Z86.16 Personal history of COVID-19; Z87.01 Personal history of pneumonia (recurrent); Z87.891 Personal history of nicotine dependence; Z91.14 Patient's other noncompliance with medication regimen; Z91.15 Patient's noncompliance with renal dialysis; Z99.2 Dependence on renal dialysis; Z91.19 Patient's noncompliance with other medical treatment and regimen
CPT/HCPCS: 36415; 70450; 71045; 72125; 80053; 80061; 80069; 82306; 82728; 83036; 83540; 83550; 83735; 83880; 83970; 84100; 84443; 84550; 85025; 85045; 87040; 87400; 90935; 93005; G0378; J0881; J1644; J0360; Q0163

== ENCOUNTER 2021-01-12 15:15 | Inpatient (IN) | payer MEDICAID ==
[~2021-01-12] VITALS: Ht 170.2 cm; Wt 50.7 kg
[~2021-01-12 15:15] MED LIST changes: +ACET325T26 PO; +ALLO300T PO; +AMLO-150 PO; +CARV3.1212 PO; +MELA5TAB14 PO; +PANT40TA6 PO
[2021-01-12] MEDS ORDERED: hydrALAzine 20 MG/ML, 1ML ONE (15:56)
[2021-01-12] MEDS ORDERED: SODIUM CHLORIDE FLUSH 10ML SYR IVF ONE (16:00)
[2021-01-12] MEDS ORDERED: hydrALAzine 20 MG/ML, 1ML IV ONE (16:00)
[2021-01-12 16:13] LABS: BASOPHILS % (AUTO) 1 % (0-1); EOSINOPHILS % (AUTO) 3 % (1-7); LYMPHOCYTES % (AUTO) 13 % (22-44); MEAN CORPUSCULAR HEMOGLOBIN 27.3 pg (27.5-34.5); MEAN CORPUSCULAR HGB CONC 31.9 g/dL (33.2-36.2); MEAN PLATELET VOLUME 8.1 fL (7.4-10.4); MONOCYTES % (AUTO) 8 % (2-9); NEUTROPHILS % (AUTO) 75 % (42-75); PLATELET COUNT 215 x10^3/uL (130-400); RED BLOOD COUNT 3.79 x10^6/uL (4.38-5.82); RED CELL DISTRIBUTION WIDTH 21.2 % (9.4-14.8)
[2021-01-12 16:15] LABS: MD MORPH REVIEW ONLY
[2021-01-12 16:25] LABS: ALANINE AMINOTRANSFERASE 21 U/L (12-78); ALBUMIN 3.9 g/dL (3.4-5.0); ANION GAP 20 mmol/L (5-15); CALCIUM 10.1 mg/dL (8.5-10.1); CHLORIDE 101 mmol/L (98-107)
[2021-01-12 16:27] LABS: ALKALINE PHOSPHATASE 241 U/L (45-117); BILIRUBIN,TOTAL 0.6 mg/dL (0.2-1.0); TOTAL PROTEIN 8.2 g/dL (6.4-8.2)
[2021-01-12 16:53] LABS: ANISOCYTOSIS 1+
[2021-01-12 16:57] LABS: HYPOCHROMIA 1+; OVALOCYTES 1+
[2021-01-12 16:58] LABS: <PLATELET ESTIMATE> ADEQUATE; <PLT MORPHOLOGY> NORMAL PLT MORPH
[2021-01-12] MEDS ORDERED: CALCIUM GLUCONATE 4.6 MEQ/10 ML IVPush ONE (17:00)
[2021-01-12] MEDS ORDERED: hydrALAzine 20 MG/ML, 1ML IVPush PRN (17:30)
[2021-01-12] MEDS ORDERED: MELATONIN 5 MG TABLET PO PRN (17:30)
[2021-01-12] MEDS ORDERED: METOPROLOL 1 MG/ML, 5ML IVPush ONE (17:30)
[2021-01-12] MEDS ORDERED: INSULIN REGULAR 100 UNITS/ML, 3ML VIAL IVPush ONE (17:30)
[2021-01-12] MEDS ORDERED: DEXTROSE 50%, 50ML SYRINGE IVPush ONE (17:30)
[2021-01-12] MEDS: HEPARIN 5,000 UNITS/ML, 1ML SQ SCH (17:30)
[2021-01-12] MEDS ORDERED: ACETAMINOPHEN 325 MG TABLET PO PRN (17:30)
[2021-01-12] MEDS ORDERED: METOPROLOL 1 MG/ML, 5ML ONE (18:10)
[2021-01-12] MEDS ORDERED: CALCIUM GLUCONATE 4.6 MEQ/10 ML ONE (18:10)
[2021-01-12] MEDS ORDERED: CARVEDILOL 3.125 MG TABLET ONE (18:10)
[2021-01-12] MEDS ORDERED: HEPARIN 5,000 UNITS/ML, 1ML ONE (18:10)
[2021-01-12] MEDS ORDERED: INSULIN SINGLE DOSE, ER ONE (18:11)
[2021-01-12] MEDS ORDERED: DEXTROSE 50%, 50ML SYRINGE ONE (18:11)
[2021-01-12] MEDS: CARVEDILOL 3.125 MG TABLET PO SCH (18:24)
--- NOTE | 2021-01-12 18:40 | NUR ---
VERONICA CONFIRMED INSULIN DOSE 5 UNITS WITH RN
--- NOTE | 2021-01-12 18:50 | NUR ---
PREVIOUS NOTE BY JOHN: VERONICA CONFIRMED INSULIN DOSE 5 UNITS WITH RN
[2021-01-12 18:57] VITALS: BP 204/105
[2021-01-12 19:57] VITALS: BP 212/119
[2021-01-12] MEDS: ATORVASTATIN 40 MG TABLET PO SCH (19:59)
[2021-01-12] MEDS: AMLODIPINE 5 MG TABLET PO SCH (20:00)
[2021-01-13 00:47] VITALS: BP 153/78
[2021-01-13] MEDS: HEPARIN 5,000 UNITS/ML, 1ML SQ SCH ×3 (02:12→17:08)
[2021-01-13 05:03] VITALS: BP 157/85
[2021-01-13] MEDS: CARVEDILOL 3.125 MG TABLET PO SCH (05:05)
[2021-01-13 05:52] LABS: BASOPHILS % (AUTO) 2 % (0-1); EOSINOPHILS % (AUTO) 2 % (1-7); LYMPHOCYTES % (AUTO) 13 % (22-44); MEAN CORPUSCULAR HEMOGLOBIN 27.9 pg (27.5-34.5); MEAN CORPUSCULAR HGB CONC 32.5 g/dL (33.2-36.2); MONOCYTES % (AUTO) 7 % (2-9); NEUTROPHILS % (AUTO) 76 % (42-75); PLATELET COUNT 229 x10^3/uL (130-400); RED BLOOD COUNT 3.66 x10^6/uL (4.38-5.82); RED CELL DISTRIBUTION WIDTH 20.8 % (9.4-14.8)
[2021-01-13 05:56] LABS: MD NO
[2021-01-13 05:58] LABS: ANION GAP 14 mmol/L (5-15); CHLORIDE 99 mmol/L (98-107)
[2021-01-13 07:07] VITALS: BP 175/95
[2021-01-13] MEDS: LISINOPRIL 20 MG TABLET PO SCH (08:40)
[2021-01-13] MEDS: AMLODIPINE 5 MG TABLET PO SCH (08:40)
[2021-01-13] MEDS: SEVELAMER CARBONATE 800MG TAB PO SCH ×3 (08:40→17:08)
[2021-01-13] MEDS: CARVEDILOL 6.25 MG TABLET PO SCH ×2 (08:43→17:08)
[2021-01-13] MEDS ORDERED: ALLOPURINOL 300 MG TABLET PO SCH (09:00)
[2021-01-13 14:39] LABS: ABSOLUTE RETICS # 0.054 x10^6/uL (0.5-1.5); RED BLOOD COUNT 3.55 x10^6/uL (4.38-5.82); RETICULOCYTE COUNT % 1.52 % (0.5-1.5)
[2021-01-13 14:42] LABS: CALCIUM 9.8 mg/dL (8.5-10.1)
[2021-01-13 16:09] VITALS: BP 162/88
[2021-01-13 19:24] VITALS: BP 168/78
[2021-01-14 00:34] VITALS: BP 149/82
[2021-01-14] MEDS: ATORVASTATIN 40 MG TABLET PO SCH (00:37)
[2021-01-14] MEDS: AMLODIPINE 5 MG TABLET PO SCH ×2 (00:38→08:43)
[2021-01-14] MEDS: HEPARIN 5,000 UNITS/ML, 1ML SQ SCH ×2 (01:02→08:44)
[2021-01-14 05:36] VITALS: BP 164/86
[2021-01-14] MEDS: CARVEDILOL 6.25 MG TABLET PO SCH (05:37)
[2021-01-14 07:07] LABS: ANION GAP 8 mmol/L (5-15); CALCIUM 10.6 mg/dL (8.5-10.1); CHLORIDE 102 mmol/L (98-107); CREATININE 8.82 mg/dL (0.7-1.3)
[2021-01-14 07:12] LABS: EOSINOPHILS % (AUTO) 3 % (1-7); MEAN PLATELET VOLUME 8.1 fL (7.4-10.4)
[2021-01-14 07:14] LABS: BASOPHILS % (AUTO) 1 % (0-1); LYMPHOCYTES % (AUTO) 15 % (22-44); MEAN CORPUSCULAR HEMOGLOBIN 27.8 pg (27.5-34.5); MEAN CORPUSCULAR HGB CONC 32.2 g/dL (33.2-36.2); MONOCYTES % (AUTO) 11 % (2-9); NEUTROPHILS % (AUTO) 71 % (42-75); PLATELET COUNT 225 x10^3/uL (130-400); RED BLOOD COUNT 3.69 x10^6/uL (4.38-5.82); RED CELL DISTRIBUTION WIDTH 20.6 % (9.4-14.8)
[2021-01-14 07:15] LABS: MD NO
[2021-01-14 07:43] VITALS: BP 156/91
[2021-01-14] MEDS: SEVELAMER CARBONATE 800MG TAB PO SCH ×2 (08:43→11:46)
[2021-01-14] MEDS: LISINOPRIL 20 MG TABLET PO SCH (08:44)
[2021-01-14] MEDS ORDERED: ALLOPURINOL 100 MG TABLET PO SCH (09:00)
[2021-01-14] MEDS ORDERED: COLCHICINE 0.6 MG CAPSULE PO SCH (11:00)
[2021-01-14] MEDS ORDERED: CARV12.52 PO ×2 (13:21→15:38)
[2021-01-14] MEDS ORDERED: ALLO100T30 PO ×2 (13:21→15:38)
[2021-01-14] MEDS ORDERED: HYDR-826 PO ×2 (13:21→15:38)
[2021-01-14 14:42] VITALS: BP 160/80
[2021-01-14] MEDS ORDERED: AMLO-150 PO (15:38)
[2021-01-14] MEDS ORDERED: MELA5TAB14 PO (15:38)
[2021-01-14] MEDS ORDERED: SEVE800T8 PO (15:38)
[2021-01-14] MEDS ORDERED: ATOR40TA78 PO (15:38)
[2021-01-14] MEDS ORDERED: COLC0.6T37 PO (16:10)
[2021-01-14] MEDS ORDERED: CARVEDILOL 12.5 MG TABLET PO SCH (18:00)
== END 2021-01-14 16:20 | disposition home or self-care (01) | DRG 640 ==
LOC: ED 15:25 → EDIP 17:08 → 4EST 18:50 → DCLOUNGE 01-14 16:07
PROVIDERS: ADMIT Hospitalist; ATTEND Hospitalist
PROC: 5A1D70Z Performance of Urinary Filtration, Intermittent, Less than 6 Hours Per Day (ICD-10-PCS; principal; 2021-01-13)
DX: E87.5 Hyperkalemia (principal); G93.41 Metabolic encephalopathy; N18.6 End stage renal disease; I12.0 Hypertensive chronic kidney disease with stage 5 chronic kidney disease or end stage renal disease; N25.81 Secondary hyperparathyroidism of renal origin; D63.1 Anemia in chronic kidney disease; E87.2 Acidosis; L29.9 Pruritus, unspecified; M1A.9XX0 Chronic gout, unspecified, without tophus (tophi); Z86.16 Personal history of COVID-19; Z87.01 Personal history of pneumonia (recurrent); Z87.891 Personal history of nicotine dependence; Z91.14 Patient's other noncompliance with medication regimen; Z91.15 Patient's noncompliance with renal dialysis; Z91.19 Patient's noncompliance with other medical treatment and regimen; Z99.2 Dependence on renal dialysis
CPT/HCPCS: 36415; 71045; 80048; 80053; 82306; 82310; 82728; 83540; 83550; 83970; 84100; 84550; 85025; 85045; 86705; 86706; 87340; 93005; 96374; 96375; 99285; G0378; J1644; J1815; J0360; J0610

== ENCOUNTER 2021-02-01 06:51 | Inpatient (IN) | payer MEDICAID ==
[~2021-02-01] VITALS: Ht 170.2 cm; Wt 53.4 kg
[~2021-02-01 06:51] MED LIST changes: +CARV12.52 PO; +HYDR-826 PO
--- NOTE | 2021-02-01 06:55 | NUR ---
[facility]- c/o "all over body pain" since missing dialysis on Thursday. Pt able to change into hospital gown and ambulate without assistance. Pt able to position himself in bed for comfort. Dr. Desai in to evaluate pt. Continuous oxygen and BP Monitors applied, all safety measures observed.
[2021-02-01] MEDS ORDERED: SODIUM CHLORIDE FLUSH 10ML SYR IVF ONE (07:00)
[2021-02-01] MEDS ORDERED: AMLODIPINE 5 MG TABLET ONE (07:21)
[2021-02-01] MEDS ORDERED: HYDROcodone/APAP 5/325 TABLET ONE (07:22)
[2021-02-01] MEDS ORDERED: LABETALOL 5MG/ML, 20ML ONE (07:22)
[2021-02-01] MEDS ORDERED: AMLODIPINE 5 MG TABLET PO ONE (07:30)
[2021-02-01] MEDS ORDERED: HYDROcodone/APAP 5/325 TABLET PO ONE (07:30)
[2021-02-01] MEDS ORDERED: LABETALOL 5MG/ML, 20ML IVPush ONE (07:30)
[2021-02-01 07:33] LABS: BASOPHILS % (AUTO) 1 % (0-1); EOSINOPHILS % (AUTO) 1 % (1-7); LYMPHOCYTES % (AUTO) 15 % (22-44); MEAN CORPUSCULAR HEMOGLOBIN 28.2 pg (27.5-34.5); MEAN PLATELET VOLUME 8.1 fL (7.4-10.4); MONOCYTES % (AUTO) 8 % (2-9); NEUTROPHILS % (AUTO) 75 % (42-75); PLATELET COUNT 200 x10^3/uL (130-400); RED BLOOD COUNT 3.36 x10^6/uL (4.38-5.82); RED CELL DISTRIBUTION WIDTH 19.3 % (9.4-14.8)
--- NOTE | 2021-02-01 07:36 | NUR ---
Pt medicated per MAR and positioned for comfort in bed. Pt denies other needs.
[2021-02-01 07:43] LABS: ALANINE AMINOTRANSFERASE 28 U/L (12-78); ANION GAP 23 mmol/L (5-15); CHLORIDE 95 mmol/L (98-107)
--- NOTE | 2021-02-01 07:47 | NUR ---
Pt ambulatory to bathroom with steady gait.
[2021-02-01 08:16] LABS: ALKALINE PHOSPHATASE 266 U/L (45-117); BILIRUBIN,TOTAL 0.5 mg/dL (0.2-1.0); TOTAL PROTEIN 8.5 g/dL (6.4-8.2)
[2021-02-01] MEDS ORDERED: SODIUM ZIRCONIUM CYCLOSILICATE 10 GM PO ONE (08:30)
[2021-02-01] MEDS ORDERED: SODIUM BICARB 8.4%, 50ML SYRINGE IVPush ONE (08:30)
[2021-02-01] MEDS ORDERED: CALCIUM CHLORIDE 10%, 10ML SYR IVPush ONE (08:30)
--- NOTE | 2021-02-01 08:38 | NUR ---
Pt reports pain unchanged after medication administered.
[2021-02-01] MEDS ORDERED: CALCIUM CHLORIDE 10%, 10ML SYR ONE (08:41)
[2021-02-01] MEDS ORDERED: SODIUM BICARB 8.4%, 50ML SYRINGE ONE ×2 (08:41→08:47)
[2021-02-01] MEDS ORDERED: DEXTROSE 50%, 50ML SYRINGE ONE (08:41)
[2021-02-01] MEDS ORDERED: INSULIN SINGLE DOSE, ER ONE (08:43)
[2021-02-01] MEDS ORDERED: INSULIN REGULAR 100 UNITS/ML, 3ML VIAL IVPush ONE (09:00)
[2021-02-01] MEDS ORDERED: DEXTROSE 50%, 50ML SYRINGE IVPush ONE (09:00)
--- NOTE | 2021-02-01 09:07 | NUR ---
Pt medicated for hyperkalemia per OCT. Pt educated on importance of medications to lower potassium levels. Dr. Ren at bedside to evaluate pt. Dr. Kingsley aware of pt's BP. Awaiting further orders.
--- NOTE | 2021-02-01 09:47 | NUR ---
Report called to Abigail DONALD on [facility]. Floor ready for pt transport.
[2021-02-01] MEDS ORDERED: ARANESP 40 MCG/ML **ESRD SQ SCH (12:30)
[2021-02-01] MEDS ORDERED: ERGOCALCIFEROL 50,000 UNIT CAPSULE PO SCH (12:30)
[2021-02-01 12:42] VITALS: BP 175/76
[2021-02-01] MEDS ORDERED: OXYcodone/APAP 5/325MG TABLET ONE (14:15)
[2021-02-01] MEDS: OXYcodone/APAP 5/325MG TABLET PO PRN ×2 (14:22→21:50)
[2021-02-01 14:45] LABS: HCT (SEDRATE) 29.5 % (39.2-51.8)
[2021-02-01] MEDS: SEVELAMER CARBONATE 800MG TAB PO SCH (17:32)
[2021-02-01] MEDS ORDERED: LIDOCAINE-MPF 1%, 5ML ONE (19:07)
[2021-02-01 21:38] VITALS: BP 180/88
[2021-02-01] MEDS: CEFTRIAXONE 2 GM in DEXTROSE 5% 50 ML IVPB SCH (21:49)
[2021-02-01] MEDS: hydrALAzine 20 MG/ML, 1ML IV PRN (21:51)
[2021-02-01 22:23] LABS: GLUCOSE, CSF 47 mg/dL (40-80); TOTAL PROTEIN,CSF 114 mg/dL (15-45)
[2021-02-02] MEDS: CEFTRIAXONE 2 GM in DEXTROSE 5% 50 ML IVPB SCH (01:25)
[2021-02-02 01:50] VITALS: BP 138/72
[2021-02-02] MEDS: OXYcodone/APAP 5/325MG TABLET PO PRN ×3 (02:29→21:36)
[2021-02-02 05:33] LABS: BASOPHILS % (AUTO) 1 % (0-1); EOSINOPHILS % (AUTO) 1 % (1-7); LYMPHOCYTES % (AUTO) 9 % (22-44); MEAN CORPUSCULAR HEMOGLOBIN 28.2 pg (27.5-34.5); MEAN CORPUSCULAR HGB CONC 33.2 g/dL (33.2-36.2); MEAN PLATELET VOLUME 8.2 fL (7.4-10.4); MONOCYTES % (AUTO) 10 % (2-9); NEUTROPHILS % (AUTO) 80 % (42-75); PLATELET COUNT 212 x10^3/uL (130-400); RED BLOOD COUNT 3.49 x10^6/uL (4.38-5.82); RED CELL DISTRIBUTION WIDTH 18.7 % (9.4-14.8)
[2021-02-02 05:42] LABS: ALBUMIN 3.7 g/dL (3.4-5.0); ANION GAP 14 mmol/L (5-15); CHLORIDE 93 mmol/L (98-107)
[2021-02-02 05:47] LABS: % IRON SATURATION 36 % (20-55); ALANINE AMINOTRANSFERASE 24 U/L (12-78); ALKALINE PHOSPHATASE 242 U/L (45-117); BILIRUBIN,TOTAL 0.5 mg/dL (0.2-1.0); CREATININE 9.63 mg/dL (0.7-1.3); IRON LEVEL 60 mcg/dL (65-175); TOTAL IRON BINDING CAPACITY 165 mcg/dL (250-450); TOTAL PROTEIN 8.4 g/dL (6.4-8.2)
[2021-02-02] MEDS: ENOXAPARIN 30 MG/0.3 ML SQ SCH (07:30)
[2021-02-02] MEDS: SEVELAMER CARBONATE 800MG TAB PO SCH ×4 (08:40→17:57)
[2021-02-02] MEDS: AMLODIPINE 5 MG TABLET PO SCH (08:41)
[2021-02-02 09:26] VITALS: BP 158/75
[2021-02-02 11:41] LABS: RAPID INFLUENZA A Negative (Negative); RAPID INFLUENZA B Negative (Negative)
[2021-02-02 13:41] VITALS: BP 113/66
[2021-02-02] MEDS: SODIUM CHLORIDE 0.9% IV SCH (14:10)
[2021-02-02] MEDS: ACYCLOVIR IV SCH (14:10)
[2021-02-02] MEDS ORDERED: OMNIPAQUE 350 MG/ML, 100ML BOTTLE ONE (15:06)
[2021-02-02 18:53] VITALS: BP 131/100
[2021-02-02 21:37] VITALS: BP 114/66
[2021-02-03] MEDS: ACYCLOVIR IV SCH ×2 (02:21→14:18)
[2021-02-03] MEDS: SODIUM CHLORIDE 0.9% IV SCH ×2 (02:21→14:18)
[2021-02-03 03:06] VITALS: BP 130/60
[2021-02-03 06:08] LABS: BASOPHILS % (AUTO) 1 % (0-1); EOSINOPHILS % (AUTO) 1 % (1-7); LYMPHOCYTES % (AUTO) 8 % (22-44); MEAN CORPUSCULAR HEMOGLOBIN 28.2 pg (27.5-34.5); MEAN PLATELET VOLUME 8.3 fL (7.4-10.4); MONOCYTES % (AUTO) 13 % (2-9); NEUTROPHILS % (AUTO) 77 % (42-75); PLATELET COUNT 251 x10^3/uL (130-400); RED BLOOD COUNT 3.56 x10^6/uL (4.38-5.82); RED CELL DISTRIBUTION WIDTH 18.2 % (9.4-14.8)
[2021-02-03 06:22] LABS: ANION GAP 11 mmol/L (5-15); CALCIUM 9.8 mg/dL (8.5-10.1); CHLORIDE 94 mmol/L (98-107); CREATININE 5.79 mg/dL (0.7-1.3)
[2021-02-03 07:27] VITALS: BP 113/65
[2021-02-03] MEDS: ENOXAPARIN 30 MG/0.3 ML SQ SCH (07:30)
[2021-02-03] MEDS: AMLODIPINE 5 MG TABLET PO SCH (08:21)
[2021-02-03] MEDS: SEVELAMER CARBONATE 800MG TAB PO SCH ×3 (08:21→17:01)
[2021-02-03] MEDS: OXYcodone/APAP 5/325MG TABLET PO PRN (11:53)
[2021-02-03 12:11] VITALS: BP 160/88
[2021-02-03 18:32] VITALS: BP 138/72
[2021-02-04 00:41] VITALS: BP 165/88
[2021-02-04] MEDS: SODIUM CHLORIDE 0.9% IV SCH (02:23)
[2021-02-04] MEDS: ACYCLOVIR IV SCH (02:23)
[2021-02-04 05:59] LABS: BASOPHILS % (AUTO) 1 % (0-1); EOSINOPHILS % (AUTO) 1 % (1-7); LYMPHOCYTES % (AUTO) 8 % (22-44); MEAN CORPUSCULAR HEMOGLOBIN 27.9 pg (27.5-34.5); MEAN CORPUSCULAR HGB CONC 33.1 g/dL (33.2-36.2); MEAN PLATELET VOLUME 7.7 fL (7.4-10.4); MONOCYTES % (AUTO) 9 % (2-9); NEUTROPHILS % (AUTO) 81 % (42-75); PLATELET COUNT 293 x10^3/uL (130-400); RED BLOOD COUNT 3.56 x10^6/uL (4.38-5.82); RED CELL DISTRIBUTION WIDTH 18.2 % (9.4-14.8)
[2021-02-04 06:11] LABS: ALBUMIN 3.7 g/dL (3.4-5.0); ANION GAP 11 mmol/L (5-15); CALCIUM 9.8 mg/dL (8.5-10.1); CHLORIDE 93 mmol/L (98-107)
[2021-02-04 07:19] VITALS: BP 166/94
[2021-02-04] MEDS: ENOXAPARIN 30 MG/0.3 ML SQ SCH (07:42)
[2021-02-04] MEDS: SEVELAMER CARBONATE 800MG TAB PO SCH ×2 (08:00→13:53)
[2021-02-04] MEDS: hydrALAzine 20 MG/ML, 1ML IV PRN (10:29)
[2021-02-04] MEDS: AMLODIPINE 5 MG TABLET PO SCH (13:53)
[2021-02-04] MEDS ORDERED: SEVE800T8 PO (14:13)
[2021-02-04] MEDS ORDERED: ERGO500017 PO (14:13)
[2021-02-04] MEDS ORDERED: ARANESP 40 MCG/ML **ESRD SQ SCH (14:14)
[2021-02-08] MEDS ORDERED: ARANESP 40 MCG/ML **ESRD SQ SCH (14:30)
== END 2021-02-04 17:22 | disposition home or self-care (01) | DRG 640 ==
LOC: ED 07:20 → 4WST 08:37
PROVIDERS: ADMIT Family Medicine; ATTEND Family Medicine
PROC: 009U3ZX Drainage of Spinal Canal, Percutaneous Approach, Diagnostic (ICD-10-PCS; 2021-02-01)
PROC: B01B1ZZ Fluoroscopy of Spinal Cord using Low Osmolar Contrast (ICD-10-PCS; 2021-02-01)
PROC: 5A1D70Z Performance of Urinary Filtration, Intermittent, Less than 6 Hours Per Day (ICD-10-PCS; principal; 2021-02-03)
DX: E87.5 Hyperkalemia (principal); N18.6 End stage renal disease; I13.2 Hypertensive heart and chronic kidney disease with heart failure and with stage 5 chronic kidney disease, or end stage renal disease; D63.8 Anemia in other chronic diseases classified elsewhere; E87.2 Acidosis; E78.5 Hyperlipidemia, unspecified; M54.2 Cervicalgia; M54.9 Dorsalgia, unspecified; J03.80 Acute tonsillitis due to other specified organisms; Z20.822 Contact with and (suspected) exposure to COVID-19; M10.9 Gout, unspecified; Z86.16 Personal history of COVID-19; Z87.01 Personal history of pneumonia (recurrent); Z87.891 Personal history of nicotine dependence; Z91.19 Patient's noncompliance with other medical treatment and regimen; Z99.2 Dependence on renal dialysis; Z91.14 Patient's other noncompliance with medication regimen; B97.89 Other viral agents as the cause of diseases classified elsewhere
CPT/HCPCS: 36415; 62328; 70491; 71045; 80048; 80053; 80069; 82728; 82945; 83540; 83550; 83735; 83880; 84100; 84145; 84157; 85025; 85651; 86140; 87070; 87075; 87081; 87116; 87205; 87206; 87400; 87486; 87529; 87581; 87633; 87798; 87880; 88108; 89051; 90935; 93005; 96374; 96375; 99291; G0378; J0133; J0696; J0882; J1815; Q9967; U0005; J0360; J7050; U0003

== ENCOUNTER 2021-02-07 02:23 | Emergency (ER) | payer MEDICAID ==
[~2021-02-07] VITALS: Ht 157.5 cm; Wt 65.0 kg
[~2021-02-07 02:23] MED LIST changes: +ERGO500017 PO
--- NOTE | 2021-02-07 02:49 | NUR ---
pt presents to ER for excessive itching, pt states he is on dialysis but missed his last few days due to the itching, pt states he is SOB and has a cough but he also states that this is how he usually feels when he doesnt go to dialysis, pt sitting in bed, a/ox4, pt is non compliant with home medications
[2021-02-07] MEDS ORDERED: hydrOXyzine 50MG TABLET ONE (02:53)
[2021-02-07] MEDS ORDERED: hydrOXyzine 50MG TABLET PO ONE (03:00)
[2021-02-07 03:05] LABS: BASOPHILS % (AUTO) 2 % (0-1); EOSINOPHILS % (AUTO) 2 % (1-7); LYMPHOCYTES % (AUTO) 12 % (22-44); MEAN CORPUSCULAR HEMOGLOBIN 27.7 pg (27.5-34.5); MEAN CORPUSCULAR HGB CONC 32.7 g/dL (33.2-36.2); MEAN PLATELET VOLUME 7.3 fL (7.4-10.4); MONOCYTES % (AUTO) 8 % (2-9); NEUTROPHILS % (AUTO) 77 % (42-75); PLATELET COUNT 375 x10^3/uL (130-400); RED BLOOD COUNT 3.71 x10^6/uL (4.38-5.82); RED CELL DISTRIBUTION WIDTH 18.5 % (9.4-14.8)
[2021-02-07 03:17] LABS: ALBUMIN 4.1 g/dL (3.4-5.0); ANION GAP 16 mmol/L (5-15); CHLORIDE 94 mmol/L (98-107)
--- NOTE | 2021-02-07 05:03 | NUR ---
pt instructed to follow up with his casting operator helper for HTN, pt instructed to go to dialysis and skip any treatments as it is detremental to his health
[2021-02-07 05:04] VITALS: BP 175/110
[2021-04-05] MEDS ORDERED: ALLO300T PO (16:31)
[2021-04-05] MEDS ORDERED: AMLO-211 PO (16:31)
[2021-04-07] MEDS ORDERED: BENZ-17 PO (12:53)
== END 2021-02-07 05:30 | disposition home or self-care (01) ==
LOC: ED 02:56
DX: L50.8 Other urticaria (principal); R07.9 Chest pain, unspecified; Z91.19 Patient's noncompliance with other medical treatment and regimen; R94.31 Abnormal electrocardiogram [ECG] [EKG]; I12.0 Hypertensive chronic kidney disease with stage 5 chronic kidney disease or end stage renal disease; N18.6 End stage renal disease; Z99.2 Dependence on renal dialysis; Z79.899 Other long term (current) drug therapy
CPT/HCPCS: 36415; 71045; 80048; 82040; 85025; 93005; 99285; Q0177

== ENCOUNTER 2021-03-29 22:09 | Emergency (ER) | payer MEDICAID ==
[~2021-03-29] VITALS: Ht 170.2 cm; Wt 55.0 kg
[2021-03-29 22:14] VITALS: BP 111/56
[2021-03-29 23:30] LABS: BASOPHILS % (AUTO) 0 % (0-1); EOSINOPHILS % (AUTO) 2 % (1-7); LYMPHOCYTES % (AUTO) 7 % (22-44); MEAN CORPUSCULAR HEMOGLOBIN 27.2 pg (27.5-34.5); MEAN CORPUSCULAR HGB CONC 31.7 g/dL (33.2-36.2); MEAN PLATELET VOLUME 7.9 fL (7.4-10.4); MONOCYTES % (AUTO) 8 % (2-9); NEUTROPHILS % (AUTO) 82 % (42-75); PLATELET COUNT 269 x10^3/uL (130-400); RED BLOOD COUNT 3.63 x10^6/uL (4.38-5.82); RED CELL DISTRIBUTION WIDTH 21.9 % (9.4-14.8)
[2021-03-29 23:35] LABS: ALBUMIN 3.7 g/dL (3.4-5.0); ANION GAP 12 mmol/L (5-15); CALCIUM 10.1 mg/dL (8.5-10.1); CHLORIDE 95 mmol/L (98-107)
--- NOTE | 2021-03-30 02:07 | NUR ---
PT CALLED FOR ROOM NA X 1
--- NOTE | 2021-03-30 02:22 | NUR ---
NA X 2 WHEN CALLED FOR ROOM
--- NOTE | 2021-03-30 04:04 | NUR ---
NA X 3 WHEN CALLED FOR ROOM.
[2021-04-05] MEDS ORDERED: AMLO-211 PO (16:31)
[2021-04-05] MEDS ORDERED: ALLO300T PO (16:31)
[2021-04-07] MEDS ORDERED: BENZ-17 PO (12:53)
== END 2021-03-30 04:05 | disposition left against medical advice (07) ==
LOC: ED 23:59 → MERGE 03-30 → ED 03-30 04:05
DX: R06.00 Dyspnea, unspecified (principal); R06.02 Shortness of breath; Z99.2 Dependence on renal dialysis
CPT/HCPCS: 36415; 71045; 80048; 82040; 85025; 93005; 99285

== ENCOUNTER 2021-04-11 12:47 | Inpatient (IN) | payer MEDICAID ==
[~2021-04-11] VITALS: Ht 170.2 cm; Wt 44.9 kg
[~2021-04-11 12:47] MED LIST changes: +BENZ-17 PO
--- NOTE | 2021-04-11 12:50 | NUR ---
pt BIB EMS c/o cough and SOB x2 days. pt reports that this is the same cough that he has when he needs dialysis. pt reports that he normally has Dialysis , but dod not go on Thursday or Thursday this week "because he was sick" pt reports that his last dialysis was on Thursday (4days ago) because he was hospitalized for pneumonia but he does not know where no resp distress. speaking full sentneces no family at bedside RESP ISO precautions in place
[2021-04-11] MEDS ORDERED: DIPHENHYDRAMINE 50 MG/ML, 1ML IV ONE (13:30)
--- NOTE | 2021-04-11 13:40 | NUR ---
lab at bedside to draw
--- NOTE | 2021-04-11 13:50 | NUR ---
CXR at bedside
[2021-04-11] MEDS ORDERED: DIPHENHYDRAMINE 50 MG/ML, 1ML ONE (14:00)
[2021-04-11 14:09] LABS: ANION GAP 16 mmol/L (5-15); CALCIUM 9.5 mg/dL (8.5-10.1); CHLORIDE 102 mmol/L (98-107)
--- NOTE | 2021-04-11 14:10 | NUR ---
pt walking around room. no resp. distress
--- NOTE | 2021-04-11 14:57 | NUR ---
pt has repeatedly taken off his B/P cuff. is walking around room and bathing in the sink. pt states that he "is itchy". pt returned to [facility]. positioning for comfort. pt has needed repeated reminding to wear his mask for safety pt is hypertensive, denies loss or change of vision. no facial droop. no weakness. REDMAN without difficulty
[2021-04-11] MEDS ORDERED: SODIUM ZIRCONIUM CYCLOSILICATE 10 GM PO ONE (15:00)
--- NOTE | 2021-04-11 15:00 | NUR ---
REPORT FROM SALVADOR, ASSUME CARE OF PT AT THIS TIME.
--- NOTE | 2021-04-11 15:12 | NUR ---
pt resting in posiiton of comfort. awaiting MD orders. no family at bedside report to Sonia DONALD
--- NOTE | 2021-04-11 15:44 | NUR ---
PT MEDICATED PER EMAR. PT STATES "STILL ITCHY" FOLLOWING BENADRYL. MED REC COMPLETED, AWAITING ADMIT BED.
--- NOTE | 2021-04-11 17:00 | NUR ---
CONTINUE TO AWAIT ADMIT BED AVAILABILITY. PT UP/AMBULATORY IN ROOM. CALL LIGHT WITHIN REACH.
--- NOTE | 2021-04-11 17:25 | NUR ---
PT SLEEPING, NAD.
--- NOTE | 2021-04-11 18:24 | NUR ---
REPORT TO JACEY MAIER READY FOR TRANSPORT TO FLOOR.
[2021-04-11] MEDS ORDERED: DOCUSATE 100 MG CAPSULE PO PRN (19:00)
[2021-04-11] MEDS ORDERED: hydrALAzine 20 MG/ML, 1ML IVPush PRN (19:00)
[2021-04-11] MEDS ORDERED: ONDANSETRON ODT 4 MG PO PRN (19:00)
[2021-04-11] MEDS ORDERED: ONDANSETRON 2MG/ML, 2ML IVPush PRN (19:00)
[2021-04-11] MEDS ORDERED: BISACODYL 10 MG SUPP PR PRN (19:00)
[2021-04-11] MEDS ORDERED: POLYETHYLENE GLYCOL 17 GM PACKET PO PRN (19:00)
[2021-04-11 20:00] VITALS: BP 177/89
[2021-04-11] MEDS: ATORVASTATIN 40 MG TABLET PO SCH (23:57)
[2021-04-11] MEDS: AMLODIPINE 5 MG TABLET PO SCH (23:57)
[2021-04-11] MEDS: MELATONIN 5 MG TABLET PO PRN (23:57)
[2021-04-11 23:58] VITALS: BP 165/89
[2021-04-11] MEDS: HEPARIN 5,000 UNITS/ML, 1ML SQ SCH (23:58)
[2021-04-12 02:00] VITALS: BP 129/78
[2021-04-12 06:03] LABS: BASOPHILS % (AUTO) 1 % (0-1); EOSINOPHILS % (AUTO) 2 % (1-7); LYMPHOCYTES % (AUTO) 6 % (22-44); MEAN CORPUSCULAR HEMOGLOBIN 28.3 pg (27.5-34.5); MEAN PLATELET VOLUME 7.6 fL (7.4-10.4); MONOCYTES % (AUTO) 9 % (2-9); NEUTROPHILS % (AUTO) 82 % (42-75); PLATELET COUNT 196 x10^3/uL (130-400); RED BLOOD COUNT 2.94 x10^6/uL (4.38-5.82); RED CELL DISTRIBUTION WIDTH 20.9 % (9.4-14.8)
[2021-04-12 06:04] LABS: ALBUMIN 3.3 g/dL (3.4-5.0); ANION GAP 10 mmol/L (5-15); CALCIUM 9.5 mg/dL (8.5-10.1); CHLORIDE 98 mmol/L (98-107)
[2021-04-12 06:14] LABS: ALANINE AMINOTRANSFERASE 66 U/L (12-78); ALKALINE PHOSPHATASE 370 U/L (45-117); BILIRUBIN,TOTAL 0.8 mg/dL (0.2-1.0); CHOL/HDL RATIO 2.6; CHOLESTEROL, TOTAL 143 mg/dL (140-239); CREATININE 6.31 mg/dL (0.7-1.3); HDL CHOL % 38 % (26-37); HDL CHOLESTEROL (DIRECT) 55 mg/dL (40-60); LDL CHOLESTEROL,CALCULATED 71 mg/dL (54-169); LDL/HDL RATIO 1.3 (0.5-3.0); TOTAL PROTEIN 8.4 g/dL (6.4-8.2); TRIGLYCERIDES 87 mg/dL (50-200); VLDL CHOLESTEROL 17 mg/dL (0-25)
[2021-04-12 06:57] VITALS: BP 151/85
[2021-04-12] MEDS: HEPARIN 5,000 UNITS/ML, 1ML SQ SCH ×2 (08:00→16:00)
[2021-04-12] MEDS: ALLOPURINOL 100 MG TABLET PO SCH (10:15)
[2021-04-12] MEDS: PANTOPRAZOLE 40MG TABLET PO SCH (10:15)
[2021-04-12] MEDS: AMLODIPINE 5 MG TABLET PO SCH ×2 (10:15→21:02)
[2021-04-12 13:32] VITALS: BP 123/72
[2021-04-12] MEDS ORDERED: DIPHENHYDRAMINE 12.5MG/5ML, 10ML UDC PO PRN (18:30)
[2021-04-12 18:55] VITALS: BP 126/71
[2021-04-12] MEDS: MELATONIN 5 MG TABLET PO PRN (21:02)
[2021-04-12] MEDS: ATORVASTATIN 40 MG TABLET PO SCH (21:02)
[2021-04-13] MEDS: HEPARIN 5,000 UNITS/ML, 1ML SQ SCH ×4 (00:02→23:30)
[2021-04-13 00:40] VITALS: BP 104/63
[2021-04-13 05:53] LABS: BASOPHILS % (AUTO) 1 % (0-1); EOSINOPHILS % (AUTO) 1 % (1-7); LYMPHOCYTES % (AUTO) 10 % (22-44); MEAN CORPUSCULAR HEMOGLOBIN 28.6 pg (27.5-34.5); MEAN CORPUSCULAR HGB CONC 33.6 g/dL (33.2-36.2); MEAN PLATELET VOLUME 7.7 fL (7.4-10.4); MONOCYTES % (AUTO) 13 % (2-9); NEUTROPHILS % (AUTO) 75 % (42-75); PLATELET COUNT 241 x10^3/uL (130-400); RED BLOOD COUNT 3.18 x10^6/uL (4.38-5.82); RED CELL DISTRIBUTION WIDTH 20.8 % (9.4-14.8)
[2021-04-13 06:06] LABS: ALBUMIN 3.3 g/dL (3.4-5.0); ANION GAP 9 mmol/L (5-15); CALCIUM 9.2 mg/dL (8.5-10.1); CHLORIDE 97 mmol/L (98-107); CREATININE 4.71 mg/dL (0.7-1.3)
[2021-04-13 07:38] VITALS: BP 136/78
[2021-04-13] MEDS: ALLOPURINOL 100 MG TABLET PO SCH (07:48)
[2021-04-13] MEDS: PANTOPRAZOLE 40MG TABLET PO SCH (07:48)
[2021-04-13] MEDS: AMLODIPINE 5 MG TABLET PO SCH ×2 (07:48→21:06)
[2021-04-13 12:01] VITALS: BP 124/72
[2021-04-13 20:57] VITALS: BP 97/58
[2021-04-13] MEDS: ATORVASTATIN 40 MG TABLET PO SCH (21:06)
[2021-04-14 01:41] VITALS: BP 101/61
[2021-04-14 05:03] LABS: ALBUMIN 3.4 g/dL (3.4-5.0); ANION GAP 7 mmol/L (5-15); CALCIUM 9.8 mg/dL (8.5-10.1); CHLORIDE 97 mmol/L (98-107); CREATININE 3.95 mg/dL (0.7-1.3)
[2021-04-14 07:53] VITALS: BP 107/65
[2021-04-14] MEDS: HEPARIN 5,000 UNITS/ML, 1ML SQ SCH ×2 (08:00→16:00)
[2021-04-14 08:06] VITALS: BP 113/63
[2021-04-14] MEDS: AMLODIPINE 5 MG TABLET PO SCH ×2 (08:07→20:17)
[2021-04-14] MEDS: PANTOPRAZOLE 40MG TABLET PO SCH (08:07)
[2021-04-14] MEDS: ALLOPURINOL 100 MG TABLET PO SCH (08:07)
[2021-04-14] MEDS: HYDROcodone/APAP 5/325 TABLET PO PRN (14:51)
[2021-04-14 15:39] VITALS: BP 109/71
[2021-04-14 18:58] VITALS: BP 95/58
[2021-04-14] MEDS: ATORVASTATIN 40 MG TABLET PO SCH (20:16)
[2021-04-15 01:52] VITALS: BP 102/64
[2021-04-15 06:26] LABS: ALBUMIN 3.2 g/dL (3.4-5.0); CALCIUM 9.8 mg/dL (8.5-10.1); CHLORIDE 95 mmol/L (98-107)
[2021-04-15 06:30] LABS: ANION GAP 12 mmol/L (5-15); CREATININE 7.17 mg/dL (0.7-1.3)
[2021-04-15] MEDS: HEPARIN 5,000 UNITS/ML, 1ML SQ SCH ×3 (08:00→15:00)
[2021-04-15 08:38] VITALS: BP 126/77
[2021-04-15] MEDS: AMLODIPINE 5 MG TABLET PO SCH (08:56)
[2021-04-15] MEDS: PANTOPRAZOLE 40MG TABLET PO SCH (08:56)
[2021-04-15] MEDS: ALLOPURINOL 100 MG TABLET PO SCH (08:56)
[2021-04-15] MEDS: HYDROcodone/APAP 5/325 TABLET PO PRN (08:56)
[2021-04-15 12:51] VITALS: BP 111/70
[2021-04-15] MEDS ORDERED: ATOR40TA78 PO (13:20)
[2021-04-15] MEDS ORDERED: BENZ-17 PO (13:20)
[2021-04-15] MEDS ORDERED: PANT40TA6 PO (13:20)
[2021-04-15] MEDS ORDERED: ALLO100T30 PO (13:20)
[2021-04-15] MEDS ORDERED: MELA5TAB14 PO (13:20)
[2021-04-15] MEDS ORDERED: CINA30TA2 PO (13:20)
[2021-04-16] MEDS ORDERED: CINACALCET 30 MG TABLET PO SCH (09:00)
== END 2021-04-15 16:00 | disposition home or self-care (01) | DRG 640 ==
LOC: ED 12:58 → 4WST 15:02
PROVIDERS: ADMIT Hospitalist; ATTEND Internal Medicine
DX: E87.5 Hyperkalemia (principal); J81.0 Acute pulmonary edema; N18.6 End stage renal disease; J96.01 Acute respiratory failure with hypoxia; J18.9 Pneumonia, unspecified organism; G92 Toxic encephalopathy; I12.0 Hypertensive chronic kidney disease with stage 5 chronic kidney disease or end stage renal disease; E44.0 Moderate protein-calorie malnutrition; Z91.19 Patient's noncompliance with other medical treatment and regimen; E87.2 Acidosis; N25.0 Renal osteodystrophy; Z91.15 Patient's noncompliance with renal dialysis; D63.1 Anemia in chronic kidney disease; Z99.2 Dependence on renal dialysis; E11.22 Type 2 diabetes mellitus with diabetic chronic kidney disease; E87.70 Fluid overload, unspecified; M79.644 Pain in right finger(s); M1A.9XX1 Chronic gout, unspecified, with tophus (tophi); Z20.822 Contact with and (suspected) exposure to COVID-19
CPT/HCPCS: 36415; 71045; 80048; 80053; 80061; 80069; 82306; 82962; 83036; 83735; 83970; 84100; 84443; 85025; 90935; 93005; 93306; 93990; 96374; 99285; G0378; J1200; Q0177

== ENCOUNTER 2021-04-18 16:41 | Emergency (ER) | payer MEDICAID ==
[~2021-04-18] VITALS: Ht 170.2 cm; Wt 51.8 kg
[~2021-04-18 16:41] MED LIST changes: +CINA30TA2 PO
[2021-04-18 16:47] VITALS: BP 154/89
--- NOTE | 2021-04-18 18:43 | NUR ---
HEEL STIFFENER: PT CALLED FOR ROOM, NO ANSWER
--- NOTE | 2021-04-18 18:56 | NUR ---
FRONT END ARCHITECT: CALLED FOR ROOM, NO ANSWER
--- NOTE | 2021-04-18 19:25 | NUR ---
CALLED IN THE LOBBY, NO ANSWER
== END 2021-04-18 19:39 | disposition left against medical advice (07) ==
LOC: ED 19:33
DX: M79.642 Pain in left hand (principal); Z53.21 Procedure and treatment not carried out due to patient leaving prior to being seen by health care provider